=== PATIENT | male | born 1950 ===

== ENCOUNTER 2016-10-27 15:31 | Inpatient (IN) | payer OTHER, MEDICARE ==
--- NOTE | 2016-10-27 15:44 | EDM.PDOC ---
ED HPI GENERAL MEDICAL PROBLEM - General Chief Complaint: Gastrointestinal Problem Stated Complaint: BLOOD IN STOOL Time Seen by Provider: 10/27/16 15:42 Source of Information: Reports: Patient History Limitations: Reports: No Limitations - History of Present Illness INITIAL COMMENTS - FREE TEXT/NARRATIVE: 66-year-old male presents to the ED stating that since noon he's had 3 bowel movements containing all blood. This is bright red blood with some clotting. When he gets the urge to go he has to go immediately. He has vague abdominal discomfort at this time with no severe cramping. His appetite remains good. He is not prone to reflux disease. He takes a baby aspirin daily but has had not had any recent positive heartburn. Does not use any arthritis tablets uses Tylenol arthritis when necessary for right knee pain. Bowel movements are painless. Can't remember if he's had any bowel movement that contained stool today. No previous post with rectal bleeding. Last colonoscopy was greater than 10 years ago. Apparently a polyp or 2 was removed at that time. The colostomy was carried out here in [place] likely with Dr. Hartman. No family history of colon cancer. He has a bad type II diabetic that is not all that well controlled. On numerous medications to treat his diabetes. Known coronary disease with triple bypass carried out in December last year. Onset: Today Onset Date: 10/27/16 Onset Time: 12:00 Duration: Hour(s): Location: Reports: Other (Rectal bleeding) Quality: Reports: Other Severity: Moderate (Painless rectal bleeding 3 large) Improves with: Reports: None ( bowel movements which she feels was at least a handful of blood loss.) Worsens with: Reports: None Context: Denies: Activity, Exercise, Lifting, Sick Contact, Trauma, Other Associated Symptoms: Reports: No Other Symptoms, Other (Perhaps feels a little weak.) Treatments BOOK STORE ASSOCIATE: Reports: Acetaminophen, Other (see below) (None.) - Related Data Allergies Allergy/AdvReac Type Severity Reaction Status Date / Time celecoxib [From Celebrex] Allergy Indigestion Verified 10/27/16 15:39 Home Meds: Home Meds Dapagliflozin Propanediol [Farxiga] 5 mg PO DAILY 02/23/16 [History] Fish,Saf,Flx,Brg Oils/O3,6,9#2 [Hbdk-Wqrr-Dqrqef Oil Softgel] 1 each PO DAILY [History] Folic Acid 0.8 mg PO DAILY 02/23/16 [History] Gluc 2KCl/Chondr/Mandi Hy/Hy Ac [Glucosamine & Chondroitin Cap] 1 each PO DAILY 02/23/16 [History] Lisinopril 5 mg PO DAILY 02/23/16 [History] Metoprolol Succinate [Toprol XL 50mg] 50 mg PO DAILY 02/23/16 [History] Multivitamin [Multivitamins] 1 each PO DAILY 02/23/16 [History] atorvaSTATin [Lipitor] 80 mg PO BEDTIME 02/23/16 [History] metFORMIN HCl [Metformin HCl] 1,000 mg PO BID 02/23/16 [History] Aspirin [Halfprin] 81 mg PO DAILY 10/27/16 [History] Exenatide Microspheres [Bydureon] 2 mg SUBCUT ASDIRECTED 10/27/16 [History] Past Medical History Cardiovascular History: Reports: Bypass (Triple bypass carried out in December last year.), CAD, High Cholesterol, Hypertension, [place], SOB on Exertion Respiratory History: Reports: COPD (Currently on an inhaler which he does not feel is helping much.) Genitourinary History: Reports: BPH, Other (See Below) (Nocturia usually 3.) Musculoskeletal History: Reports: Back Pain, Chronic (Intermittent problems with low back pain. Some shoulder and neck discomfort at times.), Osteoarthritis (Especially problems with his right knee with [id number]. Is considering have total knee replacement by Dr. Meyers.) Endocrine/Metabolic History: Reports: Diabetes, Type II (By history poorly controlled. Is on multiple medications for diabetic management.) - Past Surgical History Cardiovascular Surgical History: Reports: Coronary Artery Bypass (Triple bypass carried out in December 2015) Musculoskeletal Surgical History: Reports: Arthroscopic Knee (Right knee with partial medial meniscectomy many years ago) Social & Family History - Tobacco Use Smoking Status *Q: Never Smoker Second Hand Smoke Exposure: No - Alcohol Use Days Per Week of Alcohol Use: 0 - Recreational Drug Use Recreational Drug Use: No - Living Situation & Occupation Living situation: Reports: Occupation: Employed ED ROS GENERAL - Review of Systems Review Of Systems: See Below Constitutional: Reports: Weakness. Denies: Fever, Chills, Malaise, Fatigue, Decreased Appetite, Weight Loss (Perhaps a little weak.) HEENT: Reports: Glasses, Hearing Loss Respiratory: Reports: Shortness of Breath (On minimal exertionwith COPD.), Cough (Nonproductive cough) Cardiovascular: Reports: Blood Pressure Problem, Dyspnea on Exertion ( Vocational fluid in his lower extremities), Edema. Denies: Chest Pain, Claudication, Lightheadedness, Orthopnea (Well-controlled on current medications ) Endocrine: Reports: Fatigue, High Glucose GI/Abdominal: Reports: Other (Bright red bleeding per rectum 3 today.) : Reports: Frequency, Other (Nocturia 3 or 4.) Musculoskeletal: Reports: Back Pain, Joint Pain (Right knee gives him a lot of pain.) Skin: Reports: No Symptoms Neurological: Reports: No Symptoms Psychiatric: Reports: No Symptoms Hematologic/Lymphatic: Reports: No Symptoms Immunologic: Reports: No Symptoms ED EXAM, GI/ABD - Physical Exam Exam: See Below Exam Limited By: Uncooperative General Appearance: Alert, WD/WN, No Apparent Distress, Other (Color is good.) Eyes: Bilateral: Normal Appearance Throat/Mouth: Normal Inspection, Normal Oropharynx Head: Atraumatic, Normocephalic Neck: Normal Inspection, Non-Tender, Limited Range of Motion. No: Full Range of Motion, Lymphadenopathy (L) (Has crepitus with lateral rotation.), Lymphadenopathy (R) Respiratory/Chest: Decreased Breath Sounds, Wheezing (Occasional expiratory wheeze), Other (Well-healed midline sternotomy incision) GI/Abdominal Exam: Normal Bowel Sounds, Soft, Non-Tender, No Organomegaly, Other (No hernias and no scars.) Back Exam: Normal Inspection, Decreased Range of Motion. No: CVA Tenderness (L) , CVA Tenderness (R) Extremities: Normal Inspection, Other (Swelling and pain right knee.) Neurological: Alert, Oriented, CN II-XII Intact, Normal Cognition. No: Normal Gait (Limping gait due to right knee pain) Psychiatric: Normal Affect, Normal Mood Skin Exam: Warm, Dry, Intact, Normal Color, No Rash ED ABDOMINAL/GI PROCEDURES - Additional/Other Procedure(s) Procedure(s) (Free Text): Rigid sigmoidoscopy carried out to only 12 cm before the scope filled completely with melena stool. Suction this out and it filled again rapidly with blood. Therefore there was no way to visualize any potential source of bleeding. The procedure that was therefore abandoned. Course - Vital Signs Last Recorded V/S: Last Vital Signs Temp 36.7 C 10/27/16 15:39 Pulse 90 10/27/16 15:39 Resp BP 133/80 10/27/16 15:39 Pulse Ox 95 10/27/16 15:39 Orthostatic Blood Pressure [ 133/83 Sitting] Orthostatic Blood Pressure [ 127/81 Supine] - Orders/Labs/Meds Orders: Active Orders 24 hr Category Date Time Status Orthostatic Vital Signs [RC] ASDIRECTED Care 10/27/16 15:43 Active Abdomen Pelvis w Cont [CT] Stat Exams 10/27/16 17:42 Taken Hemoccult [OCCULT BLOOD DIAGNOSTIC] [OP] Stat Lab 10/27/16 16:40 Ordered PACKED CELLS [RED BLOOD CELLS LP] [BBK] Stat Lab 10/27/16 16:04 Results PATIENT RETYPE [BBK] Stat Lab 10/27/16 16:04 Results TYPE AND SCREEN [BBK] Stat Lab 10/27/16 16:04 Results Sodium Chloride 0.9% [Normal Saline] 1,000 ml Med 10/27/16 15:45 Active IV ASDIRECTED Medication Orders Sodium Chloride (Normal Saline) 1,000 mls @ 250 mls/hr IV ASDIRECTED JERONIMO Last Admin: 10/27/16 15:57 Dose: 150 mls/hr Labs: Laboratory Tests 10/27/16 10/27/16 10/27/16 Range/Units 16:04 16:04 16:04 WBC 8.93 (4.23-9.07) K/mm3 RBC 5.17 (4.63-6.08) M/mm3 Hgb 13.9 (13.7-17.5) gm/L Hct 42.7 (40.1-51.0) % MCV 82.6 (79.0-92.2) fl MCH 26.9 (25.7-32.2) pg MCHC 32.6 (32.2-35.5) g/dl RDW Std Deviation 43.6 (35.1-43.9) fL Plt Count 224 (163-337) K/mm3 MPV 10.3 (9.4-12.3) fl Neutrophils % (Manual) 66 H (40-60) % Band Neutrophils % 0 (0-10) % Lymphocytes % (Manual) 22 (20-40) % Atypical Lymphs % 0 % Monocytes % (Manual) 11 H (2-10) % Eosinophils % (Manual) 1 (0.8-7.0) % Basophils % (Manual) 0 L (0.2-1.2) Platelet Estimate Adequate Plt Morphology Comment Normal Poikilocytosis 1+ slight Tear Drop Cells 1+ slight Ovalocytes 1+ slight RBC Morph Comment Normal PT 10.9 (8.0-13.0) SECONDS INR 1.00 APTT (22-36) SECONDS Sodium 141 (136-145) mEq/L Potassium 4.0 (3.5-5.1) mEq/L Chloride 106 (98-107) mEq/L Carbon Dioxide 25 (21-32) mEq/L Anion Gap 14.0 (5-15) BUN 12 (7-18) mg/dL Creatinine 1.1 (0.7-1.3) mg/dL Est Cr Clr Drug Dosing 63.91 mL/min Estimated GFR (MDRD) > 60 (>60) mL/min BUN/Creatinine Ratio 10.9 L (14-18) Glucose 160 H (80-115) mg/dL Hemoglobin A1c (4.50-6.20) % Calcium 9.5 (8.5-10.1) mg/dL Total Bilirubin 0.4 (0.2-1.0) mg/dL AST 23 (15-37) U/L ALT 39 (16-63) U/L Alkaline Phosphatase 69 (46-116) U/L Total Protein 7.1 (6.4-8.2) g/dl Albumin 3.4 (3.4-5.0) g/dl Globulin 3.7 gm/dL Albumin/Globulin Ratio 0.9 L (1-2) Blood Type Gel Antibody Screen Crossmatch 10/27/16 10/27/16 10/27/16 Range/Units 16:04 16:04 16:04 WBC (4.23-9.07) K/mm3 RBC (4.63-6.08) M/mm3 Hgb (13.7-17.5) gm/L Hct (40.1-51.0) % MCV (79.0-92.2) fl MCH (25.7-32.2) pg MCHC (32.2-35.5) g/dl RDW Std Deviation (35.1-43.9) fL Plt Count (163-337) K/mm3 MPV (9.4-12.3) fl Neutrophils % (Manual) (40-60) % Band Neutrophils % (0-10) % Lymphocytes % (Manual) (20-40) % Atypical Lymphs % % Monocytes % (Manual) (2-10) % Eosinophils % (Manual) (0.8-7.0) % Basophils % (Manual) (0.2-1.2) Platelet Estimate Plt Morphology Comment Poikilocytosis Tear Drop Cells Ovalocytes RBC Morph Comment PT (8.0-13.0) SECONDS INR APTT 25 (22-36) SECONDS Sodium (136-145) mEq/L Potassium (3.5-5.1) mEq/L Chloride (98-107) mEq/L Carbon Dioxide (21-32) mEq/L Anion Gap (5-15) BUN (7-18) mg/dL Creatinine (0.7-1.3) mg/dL Est Cr Clr Drug Dosing mL/min Estimated GFR (MDRD) (>60) mL/min BUN/Creatinine Ratio (14-18) Glucose (80-115) mg/dL Hemoglobin A1c 7.10 H (4.50-6.20) % Calcium (8.5-10.1) mg/dL Total Bilirubin (0.2-1.0) mg/dL AST (15-37) U/L ALT (16-63) U/L Alkaline Phosphatase (46-116) U/L Total Protein (6.4-8.2) g/dl Albumin (3.4-5.0) g/dl Globulin gm/dL Albumin/Globulin Ratio (1-2) Blood Type A POSITIVE Gel Antibody Screen Negative Crossmatch See Detail Meds: Medications Generic Name Dose Route Start Last Admin Trade Name Freq PRN Reason Stop Dose Admin Sodium Chloride 1,000 mls @ 250 mls/hr 10/27/16 15:45 10/27/16 15:57 Normal Saline IV 150 mls/hr ASDIRECTED JERONIMO Administration Discontinued Medications Generic Name Dose Route Start Last Admin Trade Name Freq PRN Reason Stop Dose Admin Diatrizoate Meglum/Diatrizoate Sod 90 ml 10/27/16 18:50 Gastrografin 37% PO 10/27/16 18:51 ONETIME ONE Iopamidol 125 ml 10/27/16 18:50 Isovue-300 (61%) IVPUSH 10/27/16 18:51 ONETIME ONE Lidocaine HCl 10 ml 10/27/16 16:12 10/27/16 16:26 Xylocaine 2% Jelly MUCMEM 10/27/16 16:13 10 ml ONETIME ONE Administration - Radiology Interpretation Free Text/Narrative:: 66-year-old male presents to the ED stating that he's had 3 bloody stools per rectum since noon today. He believes he passed a paramount per rectum each time like a handful. Blood was all bright red with no maroon color to it. Believes it was a few clots. All bowel movements are painless. Last colonoscopy was brought 10 years ago. Usually bowel movements are nice and normal without problems with diarrhea or constipation. Color at this time is good. Orthostatic BPs to be done. Will start IV normal saline at 150 mils per hour. He is on aspirin 81 mg daily. Doesn't seem to have any upper GI symptoms. Type and screen will be done at this time. Consent will be obtained for rigid sigmoidoscopy. - Re-Assessments/Exams Free Text/Narrative Re-Assessment/Exam: 10/27/16 16:13 orthostatic BPs are within normal limits. Consent signed for rigid sigmoidoscopy and potential blood transfusion. 10/27/16 16:41 patient had another large melena stool prior to the rigid sigmoidoscopy. Rigid sigmoidoscopy proved to be fullness in terms that the entire colon is coated with dark colored blood and blood filled up the scope almost immediately. For no way of identifying source of bleeding but it appears to be higher up in the colon. He will require admission to the hospital as I fear that he is bleeding rather aggressively. I will crossmatch her for 2 units of packed cells to have on hand. Hemoglobin is 13.9 at this time. 10/27/16 17:44 remainder of his labs are now back. Differential is 66% neutrophils on his Hemovac white cell count. Hemoglobin A1c was 7.10 coags are normal. Sodium 141 potassium 4.1. Chloride 106 bicarbonate 25. Anion gap is 14.0 creatinine is 1.1 he went is only 12 which is against any upper GI bleed source. Glucose is 160. I did speak with Dr. Bowman hospitalist construction foreman and she recommends CT of the abdomen and pelvis with oral and IV contrast to see if we can identify a lesion within the colon. Will therefore go ahead with this test. 10/27/16 19:25 CT of the abdomen and pelvis has been completed. Contrast traveled throughout the small bowel and stomach but it did not enter the large colon which was the place of interest. There is a small hiatal hernia with evidence of some reflux as the stomach is filled with contrast. There are multiple gallstones in the gallbladder .The liver appears to be slightly Fatty infiltrated. Pancreas appears normal. There are multiple diverticula throughout the left descending colon and sigmoid colon area without any active diverticulitis evident. There is plenty of stool it appears within the right hemicolon and transverse colon. Not able to visualize any definitive apple core lesion or mass. Patient will be admitted to the intensive care unit for monitoring purposes due to significant blood loss per rectum this afternoon. Departure - Departure Time of Disposition: 19:00 Disposition: Admitted As Inpatient 66 Condition: Serious Clinical Impression: Lower gastrointestinal hemorrhage Type 2 diabetes mellitus Qualifiers: Diabetes mellitus complication status: with circulatory complication - Discharge Information - My Orders Last 24 Hours: My Active Orders 10/27/16 15:43 Orthostatic Vital Signs [RC] ASDIRECTED 10/27/16 15:45 Sodium Chloride 0.9% [Normal Saline] 1,000 ml IV ASDIRECTED 10/27/16 16:04 PACKED CELLS [RED BLOOD CELLS LP] [BBK] Stat PATIENT RETYPE [BBK] Stat TYPE AND SCREEN [BBK] Stat 10/27/16 16:40 Hemoccult [OCCULT BLOOD DIAGNOSTIC] [OP] Stat 10/27/16 17:42 Abdomen Pelvis w Cont [CT] Stat - Assessment/Plan Last 24 Hours: My Active Orders 10/27/16 15:43 Orthostatic Vital Signs [RC] ASDIRECTED 10/27/16 15:45 Sodium Chloride 0.9% [Normal Saline] 1,000 ml IV ASDIRECTED 10/27/16 16:04 PACKED CELLS [RED BLOOD CELLS LP] [BBK] Stat PATIENT RETYPE [BBK] Stat TYPE AND SCREEN [BBK] Stat 10/27/16 16:40 Hemoccult [OCCULT BLOOD DIAGNOSTIC] [OP] Stat 10/27/16 17:42 Abdomen Pelvis w Cont [CT] Stat
[2016-10-27] MEDS: Sodium Chloride 0.9% 1,000 ML IV SCH ×2 (15:57→21:59)
[2016-10-27] MEDS ORDERED: Lidocaine 2% Jelly 10 ML Urojet MUCMEM ONE (16:12)
[2016-10-27] MEDS ORDERED: Iopamidol 612 MG/ML 150 ML Bottle IVPUSH ONE (18:50)
[2016-10-27] MEDS ORDERED: Diatrizoate Meglumine/Diatrizoate Sodium 37% 120 ML Bottle PO ONE (18:50)
[2016-10-27] MEDS ORDERED: 50% Dextrose in Water 50 ML Syringe IVPUSH PRN (20:11)
--- NOTE | 2016-10-27 20:33 | PCM.HP ---
H&P History of Present Illness - General Date of Service: 10/27/16 Admit Problem/Dx: Admission Diagnosis/Problem Admission Diagnosis/Problem Acute lower gastrointestinal hemorrhage Source of Information: Patient, Provider History Limitations: Reports: No Limitations - History of Present Illness Initial Comments - Free Text/Narative: 66 year old male remote history of colon polyps presents with 3 bloody bowel movements. Currently is hemodynamically stable. He had an additional episode of a bloody bowel movement after CT of abdomen and pelvis with contrast. He denies dizziness or lightheadedness. No chest pain or shortness of breath is described. He will be admitted to the ICU for close monitoring following the frequency and size of the bloody bowel movements. Symptom Onset Date: 10/27/16 Duration of Symptoms: Reports: Hour(s):, Getting Worse Location: Reports: Abdomen Severity: Moderate Improves with: Reports: None Worsens with: Reports: None Associated Symptoms: Reports: Weakness - Related Data Allergies/Adverse Reactions: Allergies Allergy/AdvReac Type Severity Reaction Status Date / Time celecoxib [From Celebrex] Allergy Indigestion Verified 10/27/16 15:39 Home Medications: Home Meds Dapagliflozin Propanediol [Farxiga] 5 mg PO DAILY 02/23/16 [History] Fish,Saf,Flx,Brg Oils/O3,6,9#2 [Nqsw-Pbjx-Qsxojn Oil Softgel] 1 each PO DAILY [History] Folic Acid 0.8 mg PO DAILY 02/23/16 [History] Gluc 2KCl/Chondr/Mandi Hy/Hy Ac [Glucosamine & Chondroitin Cap] 1 each PO DAILY 02/23/16 [History] Lisinopril 5 mg PO DAILY 02/23/16 [History] Metoprolol Succinate [Toprol XL 50mg] 50 mg PO DAILY 02/23/16 [History] Multivitamin [Multivitamins] 1 each PO DAILY 02/23/16 [History] atorvaSTATin [Lipitor] 80 mg PO BEDTIME 02/23/16 [History] metFORMIN HCl [Metformin HCl] 1,000 mg PO BID 02/23/16 [History] Aspirin [Halfprin] 81 mg PO DAILY 10/27/16 [History] Exenatide Microspheres [Bydureon] 2 mg SUBCUT ASDIRECTED 10/27/16 [History] Past Medical History Cardiovascular History: Reports: Bypass (Triple bypass carried out in December last year.), CAD, High Cholesterol, Hypertension, [place], SOB on Exertion Respiratory History: Reports: COPD (Currently on an inhaler which he does not feel is helping much.) Genitourinary History: Reports: BPH, Other (See Below) (Nocturia usually 3.) Musculoskeletal History: Reports: Back Pain, Chronic (Intermittent problems with low back pain. Some shoulder and neck discomfort at times.), Osteoarthritis (Especially problems with his right knee with [id number]. Is considering have total knee replacement by Dr. Meyers.) Endocrine/Metabolic History: Reports: Diabetes, Type II (By history poorly controlled. Is on multiple medications for diabetic management.) - Past Surgical History Cardiovascular Surgical History: Reports: Coronary Artery Bypass (Triple bypass carried out in December 2015) Musculoskeletal Surgical History: Reports: Arthroscopic Knee (Right knee with partial medial meniscectomy many years ago) Social & Family History - Tobacco Use Smoking Status *Q: Never Smoker Second Hand Smoke Exposure: No - Alcohol Use Days Per Week of Alcohol Use: 0 - Recreational Drug Use Recreational Drug Use: No - Living Situation & Occupation Living situation: Reports: Occupation: Employed H&P Review of Systems - Review of Systems: Review Of Systems: See Below General: Reports: Weakness HEENT: Reports: No Symptoms Pulmonary: Reports: No Symptoms Cardiovascular: Reports: No Symptoms Gastrointestinal: Reports: Bloody Stool, Melena Genitourinary: Reports: No Symptoms Musculoskeletal: Reports: No Symptoms Skin: Reports: No Symptoms Psychiatric: Reports: No Symptoms Neurological: Reports: No Symptoms Hematologic/Lymphatic: Reports: No Symptoms Immunologic: Reports: No Symptoms Exam - Exam Exam: See Below - Vital Signs Vital Signs: Last Vital Signs Temp 36.7 C 10/27/16 15:39 Pulse 90 10/27/16 15:39 Resp BP 133/80 10/27/16 15:39 Pulse Ox 95 10/27/16 15:39 Weight: 106.594 kg - Exam Quality Assessment: DVT Prophylaxis General: Alert, Oriented, Cooperative HEENT: Conjunctiva Clear, EOMI, Nares Patent, Pupils Equal, Pupils Reactive Neck: Supple, Trachea Midline Lungs: Normal Respiratory Effort Cardiovascular: Regular Rate, Regular Rhythm GI/Abdominal Exam: Normal Bowel Sounds, Soft, Non-Tender, No Distention (Male) Exam: Deferred Rectal (Males) Exam: Bloody Stool Back Exam: Normal Inspection Extremities: Normal Inspection, No Pedal Edema Skin: Warm Neurological: Cranial Nerves Intact Neuro Extensive - Mental Status: Alert, Oriented x3, Normal Mood/Affect, Normal Cognition, Memory Intact Neuro Extensive - Motor, Sensory, Reflexes: CN II-XII Intact Psychiatric: Alert, Normal Affect, Normal Mood - Patient Data Result Diagrams: 10/27/16 16:04 10/27/16 16:04 *Q Meaningful Use (ADM) - VTE *Q VTE Criteria *Q: - Stroke *Q Stroke Criteria *Q: - AMI *Q AMI Criteria *Q: - Problem List (1) CAD (coronary artery disease) of artery bypass graft SNOMED Code(s): 543622225, 30663279, 705896015, 924224312, 010767602 ICD Code: I25.810 - ATHEROSCLEROSIS OF CABG W/O ANGINA PECTORIS Status: Acute Current Visit: Yes (2) Hypertension SNOMED Code(s): 15417360 ICD Code: I10 - ESSENTIAL (PRIMARY) HYPERTENSION Status: Acute Current Visit: Yes (3) COPD (chronic obstructive pulmonary disease) SNOMED Code(s): 85122204 ICD Code: J44.9 - CHRONIC OBSTRUCTIVE PULMONARY DISEASE, UNSPECIFIED Status : Acute Current Visit: Yes (4) Lower gastrointestinal hemorrhage SNOMED Code(s): 88345659 ICD Code: K92.2 - GASTROINTESTINAL HEMORRHAGE, UNSPECIFIED Status: Acute Current Visit: Yes (5) Type 2 diabetes mellitus SNOMED Code(s): 71956430 ICD Code: E11.9 - TYPE 2 DIABETES MELLITUS WITHOUT COMPLICATIONS Status: Acute Current Visit: Yes Qualifiers: Diabetes mellitus complication status: with circulatory complication Problem List Initiated/Reviewed/Updated: Yes Orders Last 24hrs: Active Orders 24 hr Category Date Time Status Accu Check [Blood Glucose Check, Bedside] [RC] Care 10/27/16 20:10 Ordered QIDACANDBED Activity as Tolerated [RC] .Routine Care 10/27/16 20:05 Ordered Antiembolic Devices [RC] PER UNIT ROUTINE Care 10/27/16 20:19 Ordered Notify Provider Consults [RC] ASDIRECTED Care 10/27/16 20:10 Ordered Vital Signs [RC] PER UNIT ROUTINE Care 10/27/16 20:05 Ordered Consult to Case Management [CONS] Routine Cons 10/27/16 20:13 Ordered Consult to Occupational Therapy [OT Evaluation and Cons 10/28/16 09:00 Ordered Treatment] [CONS] Routine Consult to Physical Therapy [PT Evaluation and Cons 10/28/16 09:00 Ordered Treatment] [CONS] Routine Consult to Physician [CONS] Routine Cons 10/28/16 07:00 Ordered Clear Liquid Diet [DIET] Diet 10/27/16 Dinner Ordered BMP [BASIC METABOLIC PANEL,BMP] [CHEM] DAILY Lab 10/28/16 05:00 Ordered BMP [BASIC METABOLIC PANEL,BMP] [CHEM] DAILY Lab 10/29/16 05:00 Ordered BMP [BASIC METABOLIC PANEL,BMP] [CHEM] DAILY Lab 10/30/16 05:00 Ordered BMP [BASIC METABOLIC PANEL,BMP] [CHEM] DAILY Lab 10/31/16 05:00 Ordered CA 125 [REF] Routine Lab 10/28/16 05:00 Ordered CBC WITH AUTO DIFF [HEME] DAILY Lab 10/28/16 05:00 Ordered CBC WITH AUTO DIFF [HEME] DAILY Lab 10/29/16 05:00 Ordered CBC WITH AUTO DIFF [HEME] DAILY Lab 10/30/16 05:00 Ordered CBC WITH AUTO DIFF [HEME] DAILY Lab 10/31/16 05:00 Ordered CEA [REF] Routine Lab 10/28/16 05:00 Ordered LIPID PANEL [CHEM] Routine Lab 10/28/16 05:00 Ordered MG [MAGNESIUM] [CHEM] DAILY Lab 10/28/16 05:00 Ordered MG [MAGNESIUM] [CHEM] DAILY Lab 10/29/16 05:00 Ordered MG [MAGNESIUM] [CHEM] DAILY Lab 10/30/16 05:00 Ordered MG [MAGNESIUM] [CHEM] DAILY Lab 10/31/16 05:00 Ordered TROPONIN I [CHEM] Routine Lab 10/28/16 05:00 Ordered Dextrose 50% in Water Med 10/27/16 20:11 Ordered 50 ml IVPUSH ASDIRECTED PRN Insulin Aspart [NovoLOG] Med 10/27/16 20:15 Ordered See Protocol SUBCUT QIDACANDBED Metoprolol Succinate [Toprol XL] Med 10/28/16 09:00 Ordered 25 mg PO DAILY atorvaSTATin Med 10/27/16 21:00 Ordered 80 mg PO BEDTIME JUAN ANTONIO Hose [Antiembolic Hose] [OM.PC] Routine Oth 10/27/16 20:19 Ordered Medication Orders Dextrose/Water (Dextrose 50% In Water) 50 ml IVPUSH ASDIRECTED PRN PRN Reason: Hypoglycemia Sodium Chloride (Normal Saline) 1,000 mls @ 250 mls/hr IV ASDIRECTED JERONIMO Last Admin: 10/27/16 15:57 Dose: 150 mls/hr Insulin Aspart (Novolog) 0 unit SUBCUT QIDACANDBED JERONIMO PRN Reason: Protocol Metoprolol Succinate (Toprol Xl) 25 mg PO DAILY JERONIMO Rosuvastatin Calcium (Crestor) 20 mg PO BEDTIME [facility] Assessment/Plan Comment:: Impression: LGIB Previously had polyps removed, remote`10 years ago HTN CAD S/P CABG 10 months ago Diabetes mellitus COPD Plan: IVF Monitor H/H, type and cross, hold 2 units Home meds Daily Labs Clear liquid diet Gen surg consult DVT/GI prophylaxis CM/PT/OT
[2016-10-27] MEDS: Pantoprazole 40 MG Vial IVPUSH SCH (20:56)
[2016-10-27] MEDS: Insulin Aspart 100 Units/ML 3 ML Pen SUBCUT SCH ×2 (21:03→22:14)
[2016-10-27] MEDS: Rosuvastatin 10 MG Tab PO SCH (22:16)
[2016-10-28] MEDS: Sodium Chloride 0.9% 1,000 ML IV SCH ×5 (02:04→18:38)
[2016-10-28] MEDS: Insulin Aspart 100 Units/ML 3 ML Pen SUBCUT SCH ×4 (06:41→21:17)
--- NOTE | 2016-10-28 07:53 | PCM.CONS ---
H&P History of Present Illness - General Date of Service: 10/28/16 Admit Problem/Dx: Admission Diagnosis/Problem Admission Diagnosis/Problem Acute lower gastrointestinal hemorrhage Source of Information: Patient, Family History Limitations: Reports: No Limitations - History of Present Illness Initial Comments - Free Text/Narative: 66-year-old male was in his usual state of health when after eating a sandwich around noon yesterday he felt crampy abdominal pain followed by the passage of melenic stools. This was the first time he had ever experienced such an event. He denied a significant history of GERD symptoms or dyspepsia. He has never taken a PPI on a daily basis. There is no past medical history of peptic ulcer disease. He's never had gastric surgery. He takes a baby aspirin a day. He will take an occasional ibuprofen for his chronic knee pain. He denied alcohol ingestion. Over the past year he has not had significant weight loss. To the best of his recollection his family history is negative for esophageal cancer, gastric cancer, as well as colon cancer and polyps. His last colonoscopy was about 10 years ago and he had a couple polyps that were benign at that time. He' s never had an upper endoscopy. Since admission the nurses have recorded about 8 additional small melenic stools. He has been hemodynamically stable on the hospitalist service. His hemoglobin has dropped from 13 to10. - Related Data Allergies/Adverse Reactions: Allergies Allergy/AdvReac Type Severity Reaction Status Date / Time celecoxib [From Celebrex] Allergy Indigestion Verified 10/28/16 00:22 Home Medications: Home Meds Dapagliflozin Propanediol [Farxiga] 5 mg PO DAILY 02/23/16 [History] Fish,Saf,Flx,Brg Oils/O3,6,9#2 [Nrkp-Rpso-Ezzqyy Oil Softgel] 1 each PO DAILY [History] Folic Acid 0.8 mg PO DAILY 02/23/16 [History] Gluc 2KCl/Chondr/Mandi Hy/Hy Ac [Glucosamine & Chondroitin Cap] 1 each PO DAILY 02/23/16 [History] Lisinopril 5 mg PO DAILY 02/23/16 [History] Metoprolol Succinate [Toprol XL 50mg] 50 mg PO DAILY 02/23/16 [History] Multivitamin [Multivitamins] 1 each PO DAILY 02/23/16 [History] atorvaSTATin [Lipitor] 80 mg PO BEDTIME 02/23/16 [History] metFORMIN HCl [Metformin HCl] 1,000 mg PO BID 02/23/16 [History] Aspirin [Halfprin] 81 mg PO DAILY 10/27/16 [History] Exenatide Microspheres [Bydureon] 2 mg SUBCUT ASDIRECTED 10/27/16 [History] glipiZIDE [Glipizide ER] 2.5 mg PO DAILY 10/28/16 [History] Past Medical History HEENT History: Reports: Other (See Below) Other HEENT History: WEARS GLASSES Cardiovascular History: Reports: Bypass, CAD, High Cholesterol, Hypertension, [place] , SOB on Exertion Respiratory History: Reports: COPD, Other (See Below) Other Respiratory History: USES CPAP AT NIGHT Genitourinary History: Reports: BPH Musculoskeletal History: Reports: Back Pain, Chronic, Osteoarthritis Endocrine/Metabolic History: Reports: Diabetes, Type II - Past Surgical History Cardiovascular Surgical History: Reports: Coronary Artery Bypass Musculoskeletal Surgical History: Reports: Arthroscopic Knee Social & Family History - Tobacco Use Smoking Status *Q: Former Smoker Years of Tobacco use: 1 Used Tobacco, but Quit: Yes Month Tobacco Last Used: QUIT SMOKING 40 YRS AGO Second Hand Smoke Exposure: No - Caffeine Use Caffeine Use: Reports: None - Alcohol Use Days Per Week of Alcohol Use: 0 - Recreational Drug Use Recreational Drug Use: No - Living Situation & Occupation Living situation: Reports: Occupation: Employed H&P Review of Systems - Review of Systems: Review Of Systems: ROS reveals no pertinent complaints other than HPI. Exam - Exam Exam: See Below - Vital Signs Vital Signs: Last Vital Signs Temp 36.4 C 10/28/16 04:00 Pulse 90 10/27/16 15:39 Resp 18 10/28/16 04:00 BP 113/68 10/28/16 04:00 Pulse Ox 95 10/28/16 04:00 Weight: 109.679 kg - Exam Quality Assessment: Supplemental Oxygen, Other (CPAP) General: Alert, Oriented, Cooperative HEENT: EOMI, Hearing Intact Neck: Supple Lungs: Clear to Auscultation, Normal Respiratory Effort Cardiovascular: Regular Rate, Regular Rhythm, Normal S1, Normal S2, Irregular Rhythm GI/Abdominal Exam: Normal Bowel Sounds, Soft, Non-Tender, Other (Obese) (Male) Exam: Deferred Rectal (Males) Exam: Deferred Skin: Warm, Dry, Intact Neuro Extensive - Mental Status: Alert, Oriented x3, Normal Mood/Affect, Normal Cognition, Memory Intact Psychiatric: Alert, Normal Affect - Patient Data Lab Results Last 24 hrs: Laboratory Results - last 24 hr 10/27/16 10/27/16 10/28/16 Range/Units 20:05 21:02 06:40 WBC 10.03 H (4.23-9.07) K/mm3 RBC 4.94 (4.63-6.08) M/mm3 Hgb 13.2 L (13.7-17.5) gm/L Hct 41.2 (40.1-51.0) % MCV 83.4 (79.0-92.2) fl MCH 26.7 (25.7-32.2) pg MCHC 32.0 L (32.2-35.5) g/dl RDW Std Deviation 44.4 H (35.1-43.9) fL Plt Count 218 (163-337) K/mm3 MPV 10.1 (9.4-12.3) fl Neut % (Auto) 66.6 (34.0-67.9) % Lymph % (Auto) 19.8 L (21.8-53.1) % Johnson % (Auto) 10.7 (5.3-12.2) % Eos % (Auto) 2.2 (0.8-7.0) Baso % (Auto) 0.2 (0.1-1.2) % Neut # (Auto) 6.68 H (1.78-5.38) K/mm3 Lymph # (Auto) 1.99 (1.32-3.57) K/mm3 Johnson # (Auto) 1.07 H (0.30-0.82) K/mm3 Eos # (Auto) 0.22 (0.04-0.54) K/mm3 Baso # (Auto) 0.02 (0.01-0.08) K/mm3 POC Glucose 106 149 H (80-115) mg/dL 10/28/16 Range/Units 06:45 WBC 8.02 (4.23-9.07) K/mm3 RBC 3.89 L (4.63-6.08) M/mm3 Hgb 10.6 L (13.7-17.5) gm/L Hct 32.8 L (40.1-51.0) % MCV 84.3 (79.0-92.2) fl MCH 27.2 (25.7-32.2) pg MCHC 32.3 (32.2-35.5) g/dl RDW Std Deviation 44.0 H (35.1-43.9) fL Plt Count 194 (163-337) K/mm3 MPV 10.5 (9.4-12.3) fl Neut % (Auto) 70.0 H (34.0-67.9) % Lymph % (Auto) 18.6 L (21.8-53.1) % Johnson % (Auto) 8.7 (5.3-12.2) % Eos % (Auto) 1.9 (0.8-7.0) Baso % (Auto) 0.2 (0.1-1.2) % Neut # (Auto) 5.61 H (1.78-5.38) K/mm3 Lymph # (Auto) 1.49 (1.32-3.57) K/mm3 Johnson # (Auto) 0.70 (0.30-0.82) K/mm3 Eos # (Auto) 0.15 (0.04-0.54) K/mm3 Baso # (Auto) 0.02 (0.01-0.08) K/mm3 POC Glucose (80-115) mg/dL Result Diagrams: 10/28/16 06:45 10/27/16 16:04 Consult PN Assessment/Plan Procedures: Procedures ANTINUCLEAR ANTIBODIES (07/08/14) ASSAY IGA/IGD/IGG/IGM EACH (07/08/14) ASSAY OF BLOOD LIPOPROTEIN (12/12/14) ASSAY OF CERULOPLASMIN (05/15/14) ASSAY OF FERRITIN (05/15/14) ASSAY OF IRON (05/15/14) ASSAY OF TRANSFERRIN (05/15/14) C-REACTIVE PROTEIN (05/05/14) CARDIAC REHAB/MONITOR (03/01/16) CHEST X-RAY 2VW FRONTAL&LATL (05/05/14) COMPLETE CBC AUTOMATED (05/07/16) COMPLETE CBC W/AUTO DIFF WBC (05/05/14) COMPREHEN METABOLIC PANEL (05/07/16) EMERGENCY DEPT VISIT (05/05/14) GLYCOSYLATED HEMOGLOBIN TEST (05/07/16) HEP B SURFACE ANTIBODY (05/15/14) HEPATIC FUNCTION PANEL (05/15/14) HEPATITIS B SURFACE AG IA (05/15/14) HEPATITIS C AB TEST (05/15/14) IMMUNOASSAY NONANTIBODY (05/15/14) INFLUENZA ASSAY W/OPTIC (05/05/14) MICROALBUMIN QUANTITATIVE (05/07/16) ROUTINE VENIPUNCTURE (05/07/16) (1) Gastrointestinal bleeding SNOMED Code(s): 33376218 Code(s): K92.2 - GASTROINTESTINAL HEMORRHAGE, UNSPECIFIED Priority: High Current Visit: Yes Qualifiers: GI bleed type/associated pathology: melena Qualified Code(s): K92.1 - Melena Problem List Initiated/Reviewed/Updated: Yes My Orders Last 24 Hours: imp: Acute GI bleed with etiology unknown. The melenic stool suggest an upper GI source because of the acid hematin interaction. A lower GI source is also possible as well. Diagnostic possible therapeutic panendoscopy is indicated. plan: Diagnostic EGD and diagnostic colonoscopy. Stable enough for bowel preparation to begin today. I will place him on the schedule first thing in the morning. The benefits and risks as well as the alternatives were explained to the patient and his . They both were familiar with the colonoscopy and the bowel preparation and agreed to have me proceed.
[2016-10-28] MEDS ORDERED: Polyethylene Glycol/Electrolytes 4,000 ML Bottle PO ONE (07:58)
--- NOTE | 2016-10-28 08:25 | CT ---
CT abdomen and pelvis Technique: Multiple axial sections were obtained from above the dome of the diaphragm inferiorly to the pubic symphysis. Intravenous and oral contrast was utilized. Delayed images were obtained through the bladder. Comparison: No prior CT abdomen or pelvis exam. Findings: Minimal left-sided pleural effusion which is likely residual from prior sternotomy. Small hiatal hernia is seen. Liver shows no focal parenchymal abnormality. Spleen appears within normal limits. Calcified gallstones seen within the gallbladder. Adrenal glands show no nodule. Pancreas is within normal limits. Kidneys show symmetric contrast enhancement without hydronephrosis or mass. Aorta shows atherosclerotic change without aneurysmal dilatation. Appendix is seen which appears normal. Diverticuli are seen throughout the sigmoid colon and descending colon. Diffuse increased stool is noted throughout the colon. No free fluid or inflammatory change is seen. Delayed images show contrast within distal ureters and within the bladder. Bone window settings were reviewed which show scattered degenerative change throughout the spine. Mild scoliosis is also noted. Impression: 1. Diffuse diverticulosis mostly within the sigmoid and descending colon. 2. Diffuse increased stool throughout the colon. 3. Calcified gallstones and other incidental findings. Diagnostic code #2 I agree with preliminary report issued by [facility] ([facility] preliminary report dictated on 10/27/16, 8:30 PM Central Time)
[2016-10-28] MEDS: Metoprolol Succinate 50 MG Tab.ER PO SCH (09:11)
[2016-10-28] MEDS: Pantoprazole 40 MG Vial IVPUSH SCH (09:13)
[2016-10-28] MEDS: Pantoprazole 80 MG in Sodium Chloride 0.9% 100 ML IV SCH ×2 (11:29→20:42)
--- NOTE | 2016-10-28 12:17 | PCM.PREANE ---
Preanesthetic Assessment - Anesthesia/Transfusion/Family Hx Anesthesia History: Prior Anesthesia Without Reaction Family History of Anesthesia Reaction: No Transfusion History: No Prior Transfusion(s) - Review of Systems General: No Symptoms Pulmonary: No Symptoms Cardiovascular: No Symptoms Gastrointestinal: No Symptoms Neurological: No Symptoms Other: Reports: Diabetes - Physical Assessment NPO Status Date: 10/28/16 Pulse: 75 O2 Sat by Pulse Oximetry: 93 Respiratory Rate: 18 Blood Pressure: 130/77 Vital Signs: Last Vital Signs Temp 97.7 F 10/28/16 08:00 Pulse 75 10/28/16 09:11 Resp 18 10/28/16 08:00 BP 130/77 10/28/16 09:11 Pulse Ox 93 L 10/28/16 08:00 Height: 5 ft 8 in Weight: 109.679 kg ASA Class: 3 Mental Status: Alert & Oriented x3 Airway Class: Mallampati = 2 Dentition: Reports: Normal Dentition Thyro-Mental Finger Breadths: 2 Mouth Opening Finger Breadths: 3 ROM/Head Extension: Full Lungs: Clear to Auscultation, Normal Respiratory Effort Cardiovascular: Regular Rate, Regular Rhythm - Lab Values: Laboratory Last Values WBC 8.02 K/mm3 (4.23-9.07) 10/28/16 06:45 RBC 3.89 M/mm3 (4.63-6.08) L 10/28/16 06:45 Hgb 10.6 gm/L (13.7-17.5) L 10/28/16 06:45 Hct 32.8 % (40.1-51.0) L 10/28/16 06:45 MCV 84.3 fl (79.0-92.2) 10/28/16 06:45 MCH 27.2 pg (25.7-32.2) 10/28/16 06:45 MCHC 32.3 g/dl (32.2-35.5) 10/28/16 06:45 RDW Std Deviation 44.0 fL (35.1-43.9) H 10/28/16 06:45 Plt Count 194 K/mm3 (163-337) 10/28/16 06:45 MPV 10.5 fl (9.4-12.3) 10/28/16 06:45 Neut % (Auto) 70.0 % (34.0-67.9) H 10/28/16 06:45 Lymph % (Auto) 18.6 % (21.8-53.1) L 10/28/16 06:45 [place] % (Auto) 8.7 % (5.3-12.2) 10/28/16 06:45 Eos % (Auto) 1.9 (0.8-7.0) 10/28/16 06:45 Baso % (Auto) 0.2 % (0.1-1.2) 10/28/16 06:45 Neut # (Auto) 5.61 K/mm3 (1.78-5.38) H 10/28/16 06:45 Lymph # (Auto) 1.49 K/mm3 (1.32-3.57) 10/28/16 06:45 [place] # (Auto) 0.70 K/mm3 (0.30-0.82) 10/28/16 06:45 Eos # (Auto) 0.15 K/mm3 (0.04-0.54) 10/28/16 06:45 Baso # (Auto) 0.02 K/mm3 (0.01-0.08) 10/28/16 06:45 Neutrophils % (Manual) 66 % (40-60) H 10/27/16 16:04 Band Neutrophils % 0 % (0-10) 10/27/16 16:04 Lymphocytes % (Manual) 22 % (20-40) 10/27/16 16:04 Atypical Lymphs % 0 % 10/27/16 16:04 Monocytes % (Manual) 11 % (2-10) H 10/27/16 16:04 Eosinophils % (Manual) 1 % (0.8-7.0) 10/27/16 16:04 Basophils % (Manual) 0 (0.2-1.2) L 10/27/16 16:04 Platelet Estimate Adequate 10/27/16 16:04 Plt Morphology Comment Normal 10/27/16 16:04 Poikilocytosis 1+ slight 10/27/16 16:04 Tear Drop Cells 1+ slight 10/27/16 16:04 Ovalocytes 1+ slight 10/27/16 16:04 RBC Morph Comment Normal 10/27/16 16:04 PT 10.9 SECONDS (8.0-13.0) 10/27/16 16:04 INR 1.00 10/27/16 16:04 APTT 25 SECONDS (22-36) 10/27/16 16:04 Sodium 139 mEq/L (136-145) 10/28/16 06:45 Potassium 4.0 mEq/L (3.5-5.1) 10/28/16 06:45 Chloride 107 mEq/L (98-107) 10/28/16 06:45 Carbon Dioxide 21 mEq/L (21-32) 10/28/16 06:45 Anion Gap 15.0 (5-15) 10/28/16 06:45 BUN 10 mg/dL (7-18) 10/28/16 06:45 Creatinine 0.8 mg/dL (0.7-1.3) 10/28/16 06:45 Est Cr Clr Drug Dosing 87.88 mL/min 10/28/16 06:45 Estimated GFR (MDRD) > 60 mL/min (>60) 10/28/16 06:45 BUN/Creatinine Ratio 12.5 (14-18) L 10/28/16 06:45 Glucose 171 mg/dL (80-115) H 10/28/16 06:45 POC Glucose 145 mg/dL (80-115) H 10/28/16 11:39 Hemoglobin A1c 7.10 % (4.50-6.20) H 10/27/16 16:04 Calcium 7.8 mg/dL (8.5-10.1) L 10/28/16 06:45 Magnesium 1.5 mg/dl (1.8-2.4) L 10/28/16 06:45 Total Bilirubin 0.4 mg/dL (0.2-1.0) 10/27/16 16:04 AST 23 U/L (15-37) 10/27/16 16:04 ALT 39 U/L (16-63) 10/27/16 16:04 Alkaline Phosphatase 69 U/L (46-116) 10/27/16 16:04 Troponin I < 0.017 ng/mL (0.00-0.056) 10/28/16 06:45 Total Protein 7.1 g/dl (6.4-8.2) 10/27/16 16:04 Albumin 3.4 g/dl (3.4-5.0) 10/27/16 16:04 Globulin 3.7 gm/dL 10/27/16 16:04 Albumin/Globulin Ratio 0.9 (1-2) L 10/27/16 16:04 Triglycerides 121 mg/dL (<150) 10/28/16 06:45 Cholesterol 66 mg/dL (<200) 10/28/16 06:45 LDL Cholesterol Direct 37 mg/dL (<100) 10/28/16 06:45 HDL Cholesterol 23.0 mg/dL (40-59) L 10/28/16 06:45 Blood Type A POSITIVE 10/27/16 16:04 Gel Antibody Screen Negative 10/27/16 16:04 Crossmatch See Detail 10/27/16 16:04 - Allergies Allergies/Adverse Reactions: Allergies Allergy/AdvReac Type Severity Reaction Status Date / Time celecoxib [From Celebrex] Allergy Indigestion Verified 10/28/16 00:22 - Blood Blood Available: Yes - Anesthesia Plan Beta Fausto: Metoprolol Med Last Dose Date: 10/28/16 Med Last Dose Time: 09:00 - Acknowledgements Anesthesia Type Planned: MAC Pt an Appropriate Candidate for the Planned Anesthesia: Yes Alternatives and Risks of Anesthesia Discussed w Pt/Guardian: Yes Pt/Guardian Understands and Agrees with Anesthesia Plan: Yes PreAnesthesia Questionnaire HEENT History: Reports: Other (See Below) Other HEENT History: WEARS GLASSES Cardiovascular History: Reports: Bypass, CAD, High Cholesterol, Hypertension, [place] , SOB on Exertion Respiratory History: Reports: COPD, Other (See Below) Other Respiratory History: USES CPAP AT NIGHT Genitourinary History: Reports: BPH Musculoskeletal History: Reports: Osteoarthritis Endocrine/Metabolic History: Reports: Diabetes, Type II - Past Surgical History HEENT Surgical History: Reports: Other (See Below) (stitches in mouth where tooth used to be- august 2016) Cardiovascular Surgical History: Reports: Coronary Artery Bypass GI Surgical History: Reports: Colonoscopy Musculoskeletal Surgical History: Reports: Arthroscopic Knee - SUBSTANCE USE Smoking Status *Q: Former Smoker Tobacco Use Within Last Twelve Months: No Second Hand Smoke Exposure: No Days Per Week of Alcohol Use: 0 Recreational Drug Use History: No - HOME MEDS Home Medications: Home Meds Dapagliflozin Propanediol [Farxiga] 5 mg PO DAILY 02/23/16 [History] Fish,Saf,Flx,Brg Oils/O3,6,9#2 [Mhno-Utim-Kpfciz Oil Softgel] 1 each PO DAILY [History] Folic Acid 0.8 mg PO DAILY 02/23/16 [History] Gluc 2KCl/Chondr/Mandi Hy/Hy Ac [Glucosamine & Chondroitin Cap] 1 each PO DAILY 02/23/16 [History] Lisinopril 5 mg PO DAILY 02/23/16 [History] Metoprolol Succinate [Toprol XL 50mg] 50 mg PO DAILY 02/23/16 [History] Multivitamin [Multivitamins] 1 each PO DAILY 02/23/16 [History] atorvaSTATin [Lipitor] 80 mg PO BEDTIME 02/23/16 [History] metFORMIN HCl [Metformin HCl] 1,000 mg PO BID 02/23/16 [History] Aspirin [Halfprin] 81 mg PO DAILY 10/27/16 [History] Exenatide Microspheres [Bydureon] 2 mg SUBCUT ASDIRECTED 10/27/16 [History] glipiZIDE [Glipizide ER] 2.5 mg PO DAILY 10/28/16 [History] - CURRENT (IN HOUSE) MEDS Current Meds: Current Medications Dextrose/Water (Dextrose 50% In Water) 50 ml IVPUSH ASDIRECTED PRN PRN Reason: Hypoglycemia Sodium Chloride (Normal Saline) 1,000 mls @ 250 mls/hr IV ASDIRECTED [facility] Last Admin: 10/28/16 10:11 Dose: 250 mls/hr Pantoprazole Sodium 80 mg/ (Sodium Chloride) 100 mls @ 10 mls/hr IV Q10H [facility] Last Admin: 10/28/16 11:29 Dose: 10 mls/hr Insulin Aspart (Novolog) 0 unit SUBCUT QIDACANDBED [facility] PRN Reason: Protocol Last Admin: 10/28/16 11:54 Dose: Not Given Metoprolol Succinate (Toprol Xl) 25 mg PO DAILY [facility] Last Admin: 10/28/16 09:11 Dose: 25 mg Rosuvastatin Calcium (Crestor) 20 mg PO BEDTIME [facility] Last Admin: 10/27/16 22:16 Dose: 20 mg Discontinued Medications Diatrizoate Meglum/Diatrizoate Sod (Gastrografin 37%) 90 ml PO ONETIME ONE Stop: 10/27/16 18:51 Iopamidol (Isovue-300 (61%)) 125 ml IVPUSH ONETIME ONE Stop: 10/27/16 18:51 Lidocaine HCl (Xylocaine 2% Jelly) 10 ml MUCMEM ONETIME ONE Stop: 10/27/16 16:13 Last Admin: 10/27/16 16:26 Dose: 10 ml Pantoprazole Sodium (Protonix Iv) 40 mg IVPUSH Q12H JREONIMO Last Admin: 10/28/16 09:13 Dose: 40 mg Polyethylene Glycol/Electrolytes (Golytely) 4,000 ml PO ONETIME ONE Stop: 10/28/16 07:59
--- NOTE | 2016-10-28 14:47 | PCM.PN ---
- General Info Date of Service: 10/28/16 Functional Status: Reports: Pain Controlled - Review of Systems General: Reports: No Symptoms HEENT: Reports: No Symptoms Pulmonary: Reports: No Symptoms Cardiovascular: Reports: No Symptoms Gastrointestinal: Reports: No Symptoms Genitourinary: Reports: No Symptoms Musculoskeletal: Reports: No Symptoms Skin: Reports: No Symptoms Neurological: Reports: No Symptoms Psychiatric: Reports: No Symptoms - Patient Data Vitals - Most Recent: Last Vital Signs Temp 36.4 C 10/28/16 12:00 Pulse 75 10/28/16 12:21 Resp 18 10/28/16 12:21 BP 130/77 10/28/16 12:21 Pulse Ox 93 L 10/28/16 12:21 Weight - Most Recent: 109.679 kg I&O - Last 24 Hours: Intake & Output 10/27/16 10/28/16 10/28/16 22:59 06:59 14:59 Intake Total 120 3520 720 Output Total 800 1250 Balance 120 2720 -530 Lab Results Last 24 Hours: Laboratory Results - last 24 hr 10/27/16 10/27/16 10/28/16 Range/Units 20:05 21:02 06:40 WBC 10.03 H (4.23-9.07) K/mm3 RBC 4.94 (4.63-6.08) M/mm3 Hgb 13.2 L (13.7-17.5) gm/L Hct 41.2 (40.1-51.0) % MCV 83.4 (79.0-92.2) fl MCH 26.7 (25.7-32.2) pg MCHC 32.0 L (32.2-35.5) g/dl RDW Std Deviation 44.4 H (35.1-43.9) fL Plt Count 218 (163-337) K/mm3 MPV 10.1 (9.4-12.3) fl Neut % (Auto) 66.6 (34.0-67.9) % Lymph % (Auto) 19.8 L (21.8-53.1) % [place] % (Auto) 10.7 (5.3-12.2) % Eos % (Auto) 2.2 (0.8-7.0) Baso % (Auto) 0.2 (0.1-1.2) % Neut # (Auto) 6.68 H (1.78-5.38) K/mm3 Lymph # (Auto) 1.99 (1.32-3.57) K/mm3 [place] # (Auto) 1.07 H (0.30-0.82) K/mm3 Eos # (Auto) 0.22 (0.04-0.54) K/mm3 Baso # (Auto) 0.02 (0.01-0.08) K/mm3 Sodium (136-145) mEq/L Potassium (3.5-5.1) mEq/L Chloride (98-107) mEq/L Carbon Dioxide (21-32) mEq/L Anion Gap (5-15) BUN (7-18) mg/dL Creatinine (0.7-1.3) mg/dL Est Cr Clr Drug Dosing mL/min Estimated GFR (MDRD) (>60) mL/min BUN/Creatinine Ratio (14-18) Glucose (80-115) mg/dL POC Glucose 106 149 H (80-115) mg/dL Calcium (8.5-10.1) mg/dL Magnesium (1.8-2.4) mg/dl Troponin I (0.00-0.056) ng/mL Triglycerides (<150) mg/dL Cholesterol (<200) mg/dL LDL Cholesterol Direct (<100) mg/dL HDL Cholesterol (40-59) mg/dL 10/28/16 10/28/16 10/28/16 Range/Units 06:45 06:45 11:39 WBC 8.02 (4.23-9.07) K/mm3 RBC 3.89 L (4.63-6.08) M/mm3 Hgb 10.6 L (13.7-17.5) gm/L Hct 32.8 L (40.1-51.0) % MCV 84.3 (79.0-92.2) fl MCH 27.2 (25.7-32.2) pg MCHC 32.3 (32.2-35.5) g/dl RDW Std Deviation 44.0 H (35.1-43.9) fL Plt Count 194 (163-337) K/mm3 MPV 10.5 (9.4-12.3) fl Neut % (Auto) 70.0 H (34.0-67.9) % Lymph % (Auto) 18.6 L (21.8-53.1) % [place] % (Auto) 8.7 (5.3-12.2) % Eos % (Auto) 1.9 (0.8-7.0) Baso % (Auto) 0.2 (0.1-1.2) % Neut # (Auto) 5.61 H (1.78-5.38) K/mm3 Lymph # (Auto) 1.49 (1.32-3.57) K/mm3 [place] # (Auto) 0.70 (0.30-0.82) K/mm3 Eos # (Auto) 0.15 (0.04-0.54) K/mm3 Baso # (Auto) 0.02 (0.01-0.08) K/mm3 Sodium 139 (136-145) mEq/L Potassium 4.0 (3.5-5.1) mEq/L Chloride 107 (98-107) mEq/L Carbon Dioxide 21 (21-32) mEq/L Anion Gap 15.0 (5-15) BUN 10 (7-18) mg/dL Creatinine 0.8 (0.7-1.3) mg/dL Est Cr Clr Drug Dosing 87.88 mL/min Estimated GFR (MDRD) > 60 (>60) mL/min BUN/Creatinine Ratio 12.5 L (14-18) Glucose 171 H (80-115) mg/dL POC Glucose 145 H (80-115) mg/dL Calcium 7.8 L (8.5-10.1) mg/dL Magnesium 1.5 L (1.8-2.4) mg/dl Troponin I < 0.017 (0.00-0.056) ng/mL Triglycerides 121 (<150) mg/dL Cholesterol 66 (<200) mg/dL LDL Cholesterol Direct 37 (<100) mg/dL HDL Cholesterol 23.0 L (40-59) mg/dL Med Orders - Current: Current Medications Dextrose/Water (Dextrose 50% In Water) 50 ml IVPUSH ASDIRECTED PRN PRN Reason: Hypoglycemia Sodium Chloride (Normal Saline) 1,000 mls @ 250 mls/hr IV ASDIRECTED [facility] Last Admin: 10/28/16 14:13 Dose: 250 mls/hr Pantoprazole Sodium 80 mg/ (Sodium Chloride) 100 mls @ 10 mls/hr IV Q10H [facility] Last Admin: 10/28/16 11:29 Dose: 10 mls/hr Insulin Aspart (Novolog) 0 unit SUBCUT QIDACANDBED [facility] PRN Reason: Protocol Last Admin: 10/28/16 11:54 Dose: Not Given Metoprolol Succinate (Toprol Xl) 25 mg PO DAILY [facility] Last Admin: 10/28/16 09:11 Dose: 25 mg Rosuvastatin Calcium (Crestor) 20 mg PO BEDTIME [facility] Last Admin: 10/27/16 22:16 Dose: 20 mg Discontinued Medications Diatrizoate Meglum/Diatrizoate Sod (Gastrografin 37%) 90 ml PO ONETIME ONE Stop: 10/27/16 18:51 Last Admin: 10/27/16 17:50 Dose: 90 ml Iopamidol (Isovue-300 (61%)) 125 ml IVPUSH ONETIME ONE Stop: 10/27/16 18:51 Last Admin: 10/27/16 19:00 Dose: 125 ml Lidocaine HCl (Xylocaine 2% Jelly) 10 ml MUCMEM ONETIME ONE Stop: 10/27/16 16:13 Last Admin: 10/27/16 16:26 Dose: 10 ml Pantoprazole Sodium (Protonix Iv) 40 mg IVPUSH Q12H [facility] Last Admin: 10/28/16 09:13 Dose: 40 mg Polyethylene Glycol/Electrolytes (Golytely) 4,000 ml PO ONETIME ONE Stop: 10/28/16 07:59 - Exam Quality Assessment: DVT Prophylaxis General: Alert, Oriented, Cooperative HEENT: Pupils Equal, Pupils Reactive, EOMI Neck: Supple, Trachea Midline Lungs: Normal Respiratory Effort Cardiovascular: Regular Rate GI/Abdominal Exam: Normal Bowel Sounds, Soft, Non-Tender, No Distention (Male) Exam: Deferred Back Exam: Normal Inspection Extremities: Normal Inspection Skin: Warm Neurological: No New Focal Deficit Psy/Mental Status: Alert - Problem List & Annotations (1) CAD (coronary artery disease) of artery bypass graft SNOMED Code(s): 716187631, 66782786, 009371703, 443166876, 661502661 Code(s): I25.810 - ATHEROSCLEROSIS OF CABG W/O ANGINA PECTORIS Status: Acute Current Visit: Yes (2) Hypertension SNOMED Code(s): 38741953 Code(s): I10 - ESSENTIAL (PRIMARY) HYPERTENSION Status: Acute Current Visit: Yes (3) COPD (chronic obstructive pulmonary disease) SNOMED Code(s): 79094238 Code(s): J44.9 - CHRONIC OBSTRUCTIVE PULMONARY DISEASE, UNSPECIFIED Status : Acute Current Visit: Yes (4) Lower gastrointestinal hemorrhage SNOMED Code(s): 59402296 Code(s): K92.2 - GASTROINTESTINAL HEMORRHAGE, UNSPECIFIED Status: Acute Current Visit: Yes (5) Type 2 diabetes mellitus SNOMED Code(s): 37153810 Code(s): E11.9 - TYPE 2 DIABETES MELLITUS WITHOUT COMPLICATIONS Status: Acute Current Visit: Yes Qualifiers: Diabetes mellitus complication status: with circulatory complication - Problem List Review Problem List Initiated/Reviewed/Updated: Yes - My Orders Last 24 Hours: My Active Orders 10/27/16 20:05 Activity as Tolerated [RC] .Routine Vital Signs [RC] Q4HR 10/27/16 20:10 Accu Check [Blood Glucose Check, Bedside] [RC] QIDACANDBED Notify Provider Consults [RC] ASDIRECTED 10/27/16 20:11 Dextrose 50% in Water 50 ml IVPUSH ASDIRECTED PRN 10/27/16 20:13 Consult to Case Management [CONS] Routine 10/27/16 20:15 Insulin Aspart [NovoLOG] See Protocol SUBCUT QIDACANDBED 10/27/16 20:19 Antiembolic Devices [RC] PER UNIT ROUTINE JUAN ANTONIO Hose [Antiembolic Hose] [OM.PC] Routine 10/27/16 21:00 Rosuvastatin [Crestor] 20 mg PO BEDTIME 10/27/16 Dinner Clear Liquid Diet [DIET] 10/28/16 01:10 Communication Order [RC] 10/28/16 06:45 CA 125 [REF] Routine CEA [REF] Routine 10/28/16 07:00 Consult to Physician [CONS] Routine 10/28/16 09:00 Consult to Occupational Therapy [OT Evaluation and Treatment] [CONS] Routine Consult to Physical Therapy [PT Evaluation and Treatment] [CONS] Routine Metoprolol Succinate [Toprol XL] 25 mg PO DAILY 10/28/16 09:47 Communication Order [RC] ASDIRECTED 10/28/16 10:30 Pantoprazole [ProTONIX IV] 80 mg Sodium Chloride 0.9% [Normal Saline] 100 ml IV Q10H 10/28/16 16:00 HEMOGLOBIN [HEME] Routine 10/29/16 05:00 BMP [BASIC METABOLIC PANEL,BMP] [CHEM] DAILY CBC WITH AUTO DIFF [HEME] DAILY MG [MAGNESIUM] [CHEM] DAILY 10/30/16 05:00 BMP [BASIC METABOLIC PANEL,BMP] [CHEM] DAILY CBC WITH AUTO DIFF [HEME] DAILY MG [MAGNESIUM] [CHEM] DAILY 10/31/16 05:00 BMP [BASIC METABOLIC PANEL,BMP] [CHEM] DAILY CBC WITH AUTO DIFF [HEME] DAILY MG [MAGNESIUM] [CHEM] DAILY - Plan Plan:: Impression: Acute GI Bleed, stable Previously had polyps removed, remote`10 years ago HTN CAD S/P CABG 10 months ago Diabetes mellitus COPD Plan: EGD/Colonoscopy in the am, 10/29/16. IVF Monitor H/H, type and cross, hold 2 units Home meds Daily Labs Clear liquid diet Gen surg consult DVT/GI prophylaxis CM/PT/OT
[2016-10-28] MEDS: Rosuvastatin 10 MG Tab PO SCH (20:41)
[2016-10-29] MEDS: Sodium Chloride 0.9% 1,000 ML IV SCH ×2 (03:11→17:19)
[2016-10-29] MEDS: Pantoprazole 80 MG in Sodium Chloride 0.9% 100 ML IV SCH (07:28)
[2016-10-29] MEDS: Insulin Aspart 100 Units/ML 3 ML Pen SUBCUT SCH ×4 (07:29→22:17)
[2016-10-29] MEDS: Metoprolol Succinate 50 MG Tab.ER PO SCH ×2 (07:52→09:14)
[2016-10-29] MEDS ORDERED: Lidocaine 1% 4 ML ONE ×2 (08:43→21:40)
[2016-10-29] MEDS ORDERED: Propofol 200 MG/20 ML SDV ONE ×2 (08:43→21:41)
[2016-10-29] MEDS ORDERED: fentaNYL 100 MCG/2 ML SDV ONE ×2 (08:44→21:41)
[2016-10-29] MEDS ORDERED: Midazolam 1 MG/ML 2 ML SDV ONE ×2 (09:40→22:04)
--- NOTE | 2016-10-29 10:03 | PCM48HPAN ---
Post Anesthesia Note - EVALUATION WITHIN 48HRS OF ANESTHETIC Vital Signs in Normal Range: Yes Patient Participated in Evaluation: Yes Respiratory Function Stable: Yes Airway Patent: Yes Cardiovascular Function Stable: Yes Hydration Status Stable: Yes Pain Control Satisfactory: Yes Nausea and Vomiting Control Satisfactory: Yes Mental Status Recovered: Yes
--- NOTE | 2016-10-29 10:09 | PCM.OPNOTE ---
- General Post-Op/Procedure Note Date of Surgery/Procedure: 10/29/16 Operative Procedure(s): 1. Esophagogastroduodenoscopy. 2. Colonoscopy with cold forceps polypectomy of 2 ascending colonic polyps and one rectal polyp Findings: 1. Small Dieulafoy lesion at the GE junction on the lesser curve which was not bleeding that was no luminal or duodenal gastric blood. There were no varices or peptic change throughout the body of the stomach and duodenum. 2. He had minor internal hemorrhoids. There were large sigmoid diverticuli and smaller transverse and descending colonic diverticuli. There were 3 polyps within the colon and rectum two in the ascending colon and one in the rectum. All were diminutive and hyperplastic in nature and all were less than 5 mm in diameter. There was particulate old blood as no april bleeding seen. The large bowel and rectum had no mass lesions or inflammatory changes. Pre Op Diagnosis: Acute GI bleed of unknown etiology Post-Op Diagnosis: 1. Gastric Dieulafoy lesion. 2. Internal hemorrhoids. 3. Sigmoid diverticulosis large as well as smaller descending and transverse colonic diverticuli. 4. 3 diminutive colorectal polyps Anesthesia Technique: MAC, Moderate Sedation Primary Surgeon: Kory Hernandez Pathology: 3 small polyps 5 mm in diameter EBL in mLs: 0 Complications: None Condition: Good Free Text/Narrative:: Intake & Output 10/28/16 10/29/16 10/29/16 22:59 06:59 14:59 Intake Total 8546 582 Output Total 900 200 400 Balance 7646 382 -400 After adequate IV sedation and analgesia was obtained the patient was placed on his left side. Through a bite block a lubricated upper endoscope was inserted into the esophagus and advanced under direct vision to the body of the stomach. Additional air was given here. There was no luminal blood present. The scope was advanced towards the antrum and then into the pylorus to the proximal third part of the duodenum. The second and first parts were endoscopically normal. The ampulla of water and the area surrounding it were endoscopically normal with no mass lesions. There were no inflammatory change and/or mass lesions seen throughout the duodenum. The prepyloric and antral areas likewise were unremarkable. The body of the stomach had normal folds and had no peptic change. In the retroflexed view the fundus was unremarkable. There was a very small hemostatic vascular submucosal appearing lesion on the lesser curve just distal to the GE junction. It was not pulsatile and not large in size. There was no clot present. It appeared to be a Dieulafoy type lesion. The scope was withdrawn to the GE junction which were sharp. From the prograde view the lesion couldn't be seen. The body of the esophagus was normal. There were no esophageal gastric varices. The vocal cords were briefly visualized on extubation and they were normal as well. Air was removed as I finished the procedure which he tolerated well. Examination Scorer photographs were taken for the patient for the record. Perianal inspection and digital rectal examination revealed the internal hemorrhoids. A lubricated colonoscope was inserted into the rectum then advanced through a tortuous sigmoid colon which had large diverticuli to the cecum. There was old luminal blood present within the colon. The bowel preparation was adequate. The cecum was unremarkable. The descending colon had 2 diminutive polyps which were removed with cold forceps. The transverse colon had a few small diverticuli. There were no mass lesions or inflammatory changes in this area as well. The descending colon had a few small diverticuli but the largest diverticuli were in the sigmoid along with some hypertrophy of the circular muscular. There were no mass lesions or inflammatory changes here as well. Within the rectum at about 15 cm there was a 5 mm diminutive polyp which was removed with the cold forceps. The specimen was captured and the area was hemostatic. In the retroflexed view I could see the internal hemorrhoids. Air was removed as I finished the procedure which he tolerated well. Photographs were taken for the patient and for the record.
--- NOTE | 2016-10-29 12:47 | PCM.PN ---
- General Info Date of Service: 10/29/16 Functional Status: Reports: Other (NPO pre procedure) - Review of Systems General: Reports: No Symptoms HEENT: Reports: No Symptoms Pulmonary: Reports: No Symptoms Cardiovascular: Reports: No Symptoms Gastrointestinal: Reports: No Symptoms Genitourinary: Reports: No Symptoms Musculoskeletal: Reports: No Symptoms Skin: Reports: No Symptoms Neurological: Reports: No Symptoms Psychiatric: Reports: No Symptoms - Patient Data Vitals - Most Recent: Last Vital Signs Temp 36.4 C 10/29/16 11:52 Pulse 62 10/29/16 11:52 Resp 16 10/29/16 11:52 BP 112/65 10/29/16 11:52 Pulse Ox 97 10/29/16 11:52 Weight - Most Recent: 111.493 kg I&O - Last 24 Hours: Intake & Output 10/28/16 10/29/16 10/29/16 22:59 06:59 14:59 Intake Total 8546 582 0 Output Total 900 200 400 Balance 7646 382 -400 Lab Results Last 24 Hours: Laboratory Results - last 24 hr 10/28/16 10/28/16 10/28/16 Range/Units 06:45 16:05 17:05 WBC (4.23-9.07) K/mm3 RBC (4.63-6.08) M/mm3 Hgb 9.7 L (13.7-17.5) gm/L Hct (40.1-51.0) % MCV (79.0-92.2) fl MCH (25.7-32.2) pg MCHC (32.2-35.5) g/dl RDW Std Deviation (35.1-43.9) fL Plt Count (163-337) K/mm3 MPV (9.4-12.3) fl Neut % (Auto) (34.0-67.9) % Lymph % (Auto) (21.8-53.1) % [place] % (Auto) (5.3-12.2) % Eos % (Auto) (0.8-7.0) Baso % (Auto) (0.1-1.2) % Neut # (Auto) (1.78-5.38) K/mm3 Lymph # (Auto) (1.32-3.57) K/mm3 [place] # (Auto) (0.30-0.82) K/mm3 Eos # (Auto) (0.04-0.54) K/mm3 Baso # (Auto) (0.01-0.08) K/mm3 Sodium (136-145) mEq/L Potassium (3.5-5.1) mEq/L Chloride (98-107) mEq/L Carbon Dioxide (21-32) mEq/L Anion Gap (5-15) BUN (7-18) mg/dL Creatinine (0.7-1.3) mg/dL Est Cr Clr Drug Dosing mL/min Estimated GFR (MDRD) (>60) mL/min BUN/Creatinine Ratio (14-18) Glucose (80-115) mg/dL POC Glucose 135 H (80-115) mg/dL Calcium (8.5-10.1) mg/dL Magnesium (1.8-2.4) mg/dl Carcinoembryonic Ag 1.1 (0.0-3.0) ng/mL 10/28/16 10/28/16 10/29/16 Range/Units 20:48 23:08 05:45 WBC 7.39 (4.23-9.07) K/mm3 RBC 3.13 L (4.63-6.08) M/mm3 Hgb 9.1 L 8.5 L (13.7-17.5) gm/L Hct 26.7 L (40.1-51.0) % MCV 85.3 (79.0-92.2) fl MCH 27.2 (25.7-32.2) pg MCHC 31.8 L (32.2-35.5) g/dl RDW Std Deviation 43.6 (35.1-43.9) fL Plt Count 177 (163-337) K/mm3 MPV 10.5 (9.4-12.3) fl Neut % (Auto) 69.9 H (34.0-67.9) % Lymph % (Auto) 18.7 L (21.8-53.1) % [place] % (Auto) 8.4 (5.3-12.2) % Eos % (Auto) 2.2 (0.8-7.0) Baso % (Auto) 0.3 (0.1-1.2) % Neut # (Auto) 5.17 (1.78-5.38) K/mm3 Lymph # (Auto) 1.38 (1.32-3.57) K/mm3 [place] # (Auto) 0.62 (0.30-0.82) K/mm3 Eos # (Auto) 0.16 (0.04-0.54) K/mm3 Baso # (Auto) 0.02 (0.01-0.08) K/mm3 Sodium (136-145) mEq/L Potassium (3.5-5.1) mEq/L Chloride (98-107) mEq/L Carbon Dioxide (21-32) mEq/L Anion Gap (5-15) BUN (7-18) mg/dL Creatinine (0.7-1.3) mg/dL Est Cr Clr Drug Dosing mL/min Estimated GFR (MDRD) (>60) mL/min BUN/Creatinine Ratio (14-18) Glucose (80-115) mg/dL POC Glucose 155 H (80-115) mg/dL Calcium (8.5-10.1) mg/dL Magnesium (1.8-2.4) mg/dl Carcinoembryonic Ag (0.0-3.0) ng/mL 10/29/16 10/29/16 10/29/16 Range/Units 05:45 07:22 11:17 WBC (4.23-9.07) K/mm3 RBC (4.63-6.08) M/mm3 Hgb (13.7-17.5) gm/L Hct (40.1-51.0) % MCV (79.0-92.2) fl MCH (25.7-32.2) pg MCHC (32.2-35.5) g/dl RDW Std Deviation (35.1-43.9) fL Plt Count (163-337) K/mm3 MPV (9.4-12.3) fl Neut % (Auto) (34.0-67.9) % Lymph % (Auto) (21.8-53.1) % [place] % (Auto) (5.3-12.2) % Eos % (Auto) (0.8-7.0) Baso % (Auto) (0.1-1.2) % Neut # (Auto) (1.78-5.38) K/mm3 Lymph # (Auto) (1.32-3.57) K/mm3 [place] # (Auto) (0.30-0.82) K/mm3 Eos # (Auto) (0.04-0.54) K/mm3 Baso # (Auto) (0.01-0.08) K/mm3 Sodium 139 (136-145) mEq/L Potassium 3.9 (3.5-5.1) mEq/L Chloride 109 H (98-107) mEq/L Carbon Dioxide 24 (21-32) mEq/L Anion Gap 9.9 (5-15) BUN 6 L (7-18) mg/dL Creatinine 0.8 (0.7-1.3) mg/dL Est Cr Clr Drug Dosing 87.88 mL/min Estimated GFR (MDRD) > 60 (>60) mL/min BUN/Creatinine Ratio 7.5 L (14-18) Glucose 145 H (80-115) mg/dL POC Glucose 143 H 137 H (80-115) mg/dL Calcium 8.0 L (8.5-10.1) mg/dL Magnesium 1.3 L (1.8-2.4) mg/dl Carcinoembryonic Ag (0.0-3.0) ng/mL Med Orders - Current: Current Medications Dextrose/Water (Dextrose 50% In Water) 50 ml IVPUSH ASDIRECTED PRN PRN Reason: Hypoglycemia Pantoprazole Sodium 80 mg/ (Sodium Chloride) 100 mls @ 10 mls/hr IV Q10H [facility] Last Admin: 10/29/16 07:28 Dose: 10 mls/hr Sodium Chloride (Normal Saline) 1,000 mls @ 75 mls/hr IV ASDIRECTED [facility] Last Admin: 10/29/16 03:11 Dose: 75 mls/hr Insulin Aspart (Novolog) 0 unit SUBCUT QIDACANDBED [facility] PRN Reason: Protocol Last Admin: 10/29/16 07:29 Dose: Not Given Metoprolol Succinate (Toprol Xl) 25 mg PO DAILY [facility] Last Admin: 10/29/16 09:14 Dose: Not Given Rosuvastatin Calcium (Crestor) 20 mg PO BEDTIME [facility] Last Admin: 10/28/16 20:41 Dose: 20 mg Discontinued Medications Diatrizoate Meglum/Diatrizoate Sod (Gastrografin 37%) 90 ml PO ONETIME ONE Stop: 10/27/16 18:51 Last Admin: 10/27/16 17:50 Dose: 90 ml Fentanyl (Sublimaze) Confirm Administered Dose 100 mcg .ROUTE .STK-MED ONE Stop: 10/29/16 08:45 Sodium Chloride (Normal Saline) 1,000 mls @ 250 mls/hr IV ASDIRECTED [facility] Last Infusion: 10/28/16 20:45 Dose: 75 mls/hr Lidocaine HCl (Xylocaine-Mpf 1%) Confirm Administered Dose 4 mls @ as directed .ROUTE .STK-MED ONE Stop: 10/29/16 08:44 Iopamidol (Isovue-300 (61%)) 125 ml IVPUSH ONETIME ONE Stop: 10/27/16 18:51 Last Admin: 10/27/16 19:00 Dose: 125 ml Lidocaine HCl (Xylocaine 2% Jelly) 10 ml MUCMEM ONETIME ONE Stop: 10/27/16 16:13 Last Admin: 10/27/16 16:26 Dose: 10 ml Midazolam HCl (Versed 1 Mg/Ml) Confirm Administered Dose 2 mg .ROUTE .STK-MED ONE Stop: 10/29/16 09:41 Pantoprazole Sodium (Protonix Iv) 40 mg IVPUSH Q12H [facility] Last Admin: 10/28/16 09:13 Dose: 40 mg Polyethylene Glycol/Electrolytes (Golytely) 4,000 ml PO ONETIME ONE Stop: 10/28/16 07:59 Last Admin: 10/28/16 17:36 Dose: 4 liter Propofol (Diprivan 20 Ml) Confirm Administered Dose 200 mg .ROUTE .STK-MED ONE Stop: 10/29/16 08:44 - Exam Quality Assessment: Supplemental Oxygen, DVT Prophylaxis General: Alert, Oriented, No Acute Distress HEENT: Pupils Equal, Pupils Reactive, EOMI Neck: Supple, Trachea Midline Lungs: Normal Respiratory Effort Cardiovascular: Regular Rate, Regular Rhythm GI/Abdominal Exam: Normal Bowel Sounds, Soft, Non-Tender, No Distention (Male) Exam: Deferred Back Exam: Normal Inspection Extremities: Normal Inspection Skin: Warm Neurological: No New Focal Deficit Psy/Mental Status: Alert, Normal Affect, Normal Mood - Problem List & Annotations (1) CAD (coronary artery disease) of artery bypass graft SNOMED Code(s): 645125234, 63040780, 409107125, 202697711, 146999747 Code(s): I25.810 - ATHEROSCLEROSIS OF CABG W/O ANGINA PECTORIS Status: Acute Current Visit: Yes (2) Hypertension SNOMED Code(s): 65144030 Code(s): I10 - ESSENTIAL (PRIMARY) HYPERTENSION Status: Acute Current Visit: Yes (3) COPD (chronic obstructive pulmonary disease) SNOMED Code(s): 42553186 Code(s): J44.9 - CHRONIC OBSTRUCTIVE PULMONARY DISEASE, UNSPECIFIED Status : Acute Current Visit: Yes (4) Lower gastrointestinal hemorrhage SNOMED Code(s): 37788868 Code(s): K92.2 - GASTROINTESTINAL HEMORRHAGE, UNSPECIFIED Status: Acute Current Visit: Yes (5) Type 2 diabetes mellitus SNOMED Code(s): 79218583 Code(s): E11.9 - TYPE 2 DIABETES MELLITUS WITHOUT COMPLICATIONS Status: Acute Current Visit: Yes Qualifiers: Diabetes mellitus complication status: with circulatory complication - Problem List Review Problem List Initiated/Reviewed/Updated: Yes - My Orders Last 24 Hours: My Active Orders 10/28/16 16:39 CPAP Adult [RT BiPAP/CPAP] [RC] ASDIRECTED 10/28/16 20:30 Sodium Chloride 0.9% [Normal Saline] 1,000 ml IV ASDIRECTED 10/29/16 Lunch Clear Liquid Diet [DIET] 10/30/16 05:00 BMP [BASIC METABOLIC PANEL,BMP] [CHEM] DAILY CBC WITH AUTO DIFF [HEME] DAILY MG [MAGNESIUM] [CHEM] DAILY 10/31/16 05:00 BMP [BASIC METABOLIC PANEL,BMP] [CHEM] DAILY CBC WITH AUTO DIFF [HEME] DAILY MG [MAGNESIUM] [CHEM] DAILY - Plan Plan:: Impression: Acute GI Bleed, stable Previously had polyps removed, remote ~10 years ago HTN CAD S/P CABG 10 months ago Diabetes mellitus, does not check accucheck; believes the DM educator takes care of everything. COPD Plan: EGD/Colonoscopy today IVF--saline lock. Monitor H/H, type and cross; transfuse today; give lasix after each unit. Replace electrolytes Home meds Daily Labs Clear liquid diet DVT/GI prophylaxis CM/PT/OT
[2016-10-29] MEDS ORDERED: Magnesium Sulfate/Water 2 GM in Premix Bag 1 BAG IV ONE (13:33)
[2016-10-29] MEDS: Pantoprazole 40 MG Tab.CR PO SCH ×2 (14:36→17:15)
[2016-10-29] MEDS: Rosuvastatin 10 MG Tab PO SCH (20:00)
--- NOTE | 2016-10-29 21:01 | PCM.CONSN ---
- General Info Date of Service: 10/29/16 Admission Dx/Problem (Free Text): GI bleeding status post panendoscopy Functional Status: Reports: Tolerating Diet - Review of Systems General: Reports: No Symptoms Gastrointestinal: Reports: Abdominal Pain (Right upper quadrant cramping which he calls a nervous stomach), Other (Complained of red bleeding dripping per rectum) - Patient Data Vitals - Most Recent: Last Vital Signs Temp 36.9 C 10/29/16 16:00 Pulse 69 10/29/16 16:00 Resp 18 10/29/16 16:00 BP 105/67 10/29/16 16:00 Pulse Ox 92 L 10/29/16 16:00 Weight - Most Recent: 111.493 kg I&O - Last 24 Hours: Intake & Output 10/29/16 10/29/16 10/29/16 06:59 14:59 22:59 Intake Total 301 962 9815 Output Total 200 1200 400 Balance 382 -790 2802 Lab Results Last 24 Hours: Laboratory Results - last 24 hr 10/28/16 10/28/16 10/29/16 Range/Units 06:45 23:08 05:45 WBC 7.39 (4.23-9.07) K/mm3 RBC 3.13 L (4.63-6.08) M/mm3 Hgb 9.1 L 8.5 L (13.7-17.5) gm/L Hct 26.7 L (40.1-51.0) % MCV 85.3 (79.0-92.2) fl MCH 27.2 (25.7-32.2) pg MCHC 31.8 L (32.2-35.5) g/dl RDW Std Deviation 43.6 (35.1-43.9) fL Plt Count 177 (163-337) K/mm3 MPV 10.5 (9.4-12.3) fl Neut % (Auto) 69.9 H (34.0-67.9) % Lymph % (Auto) 18.7 L (21.8-53.1) % [place] % (Auto) 8.4 (5.3-12.2) % Eos % (Auto) 2.2 (0.8-7.0) Baso % (Auto) 0.3 (0.1-1.2) % Neut # (Auto) 5.17 (1.78-5.38) K/mm3 Lymph # (Auto) 1.38 (1.32-3.57) K/mm3 [place] # (Auto) 0.62 (0.30-0.82) K/mm3 Eos # (Auto) 0.16 (0.04-0.54) K/mm3 Baso # (Auto) 0.02 (0.01-0.08) K/mm3 Sodium (136-145) mEq/L Potassium (3.5-5.1) mEq/L Chloride (98-107) mEq/L Carbon Dioxide (21-32) mEq/L Anion Gap (5-15) BUN (7-18) mg/dL Creatinine (0.7-1.3) mg/dL Est Cr Clr Drug Dosing mL/min Estimated GFR (MDRD) (>60) mL/min BUN/Creatinine Ratio (14-18) Glucose (80-115) mg/dL POC Glucose (80-115) mg/dL Calcium (8.5-10.1) mg/dL Magnesium (1.8-2.4) mg/dl Carcinoembryonic Ag 1.1 (0.0-3.0) ng/mL 10/29/16 10/29/16 10/29/16 Range/Units 05:45 07:22 11:17 WBC (4.23-9.07) K/mm3 RBC (4.63-6.08) M/mm3 Hgb (13.7-17.5) gm/L Hct (40.1-51.0) % MCV (79.0-92.2) fl MCH (25.7-32.2) pg MCHC (32.2-35.5) g/dl RDW Std Deviation (35.1-43.9) fL Plt Count (163-337) K/mm3 MPV (9.4-12.3) fl Neut % (Auto) (34.0-67.9) % Lymph % (Auto) (21.8-53.1) % [place] % (Auto) (5.3-12.2) % Eos % (Auto) (0.8-7.0) Baso % (Auto) (0.1-1.2) % Neut # (Auto) (1.78-5.38) K/mm3 Lymph # (Auto) (1.32-3.57) K/mm3 [place] # (Auto) (0.30-0.82) K/mm3 Eos # (Auto) (0.04-0.54) K/mm3 Baso # (Auto) (0.01-0.08) K/mm3 Sodium 139 (136-145) mEq/L Potassium 3.9 (3.5-5.1) mEq/L Chloride 109 H (98-107) mEq/L Carbon Dioxide 24 (21-32) mEq/L Anion Gap 9.9 (5-15) BUN 6 L (7-18) mg/dL Creatinine 0.8 (0.7-1.3) mg/dL Est Cr Clr Drug Dosing 87.88 mL/min Estimated GFR (MDRD) > 60 (>60) mL/min BUN/Creatinine Ratio 7.5 L (14-18) Glucose 145 H (80-115) mg/dL POC Glucose 143 H 137 H (80-115) mg/dL Calcium 8.0 L (8.5-10.1) mg/dL Magnesium 1.3 L (1.8-2.4) mg/dl Carcinoembryonic Ag (0.0-3.0) ng/mL Med Orders - Current: Current Medications Dextrose/Water (Dextrose 50% In Water) 50 ml IVPUSH ASDIRECTED PRN PRN Reason: Hypoglycemia Sodium Chloride (Normal Saline) 1,000 mls @ 75 mls/hr IV ASDIRECTED [facility] Last Admin: 10/29/16 17:19 Dose: 75 mls/hr Magnesium Sulfate 2 gm/ Premix 50 mls @ 25 mls/hr IV ONETIME ONE Stop: 10/30/16 09:59 Insulin Aspart (Novolog) 0 unit SUBCUT QIDACANDBED [facility] PRN Reason: Protocol Last Admin: 10/29/16 19:55 Dose: Not Given Lisinopril (Prinivil) 5 mg PO DAILY [facility] Metoprolol Succinate (Toprol Xl) 25 mg PO DAILY [facility] Last Admin: 10/29/16 09:14 Dose: Not Given Pantoprazole Sodium (Protonix) 40 mg PO BIDAC [facility] Last Admin: 10/29/16 17:15 Dose: 40 mg Rosuvastatin Calcium (Crestor) 20 mg PO BEDTIME [facility] Last Admin: 10/29/16 20:00 Dose: 20 mg Discontinued Medications Diatrizoate Meglum/Diatrizoate Sod (Gastrografin 37%) 90 ml PO ONETIME ONE Stop: 10/27/16 18:51 Last Admin: 10/27/16 17:50 Dose: 90 ml Fentanyl (Sublimaze) Confirm Administered Dose 100 mcg .ROUTE .STK-MED ONE Stop: 10/29/16 08:45 Sodium Chloride (Normal Saline) 1,000 mls @ 250 mls/hr IV ASDIRECTED [facility] Last Infusion: 10/28/16 20:45 Dose: 75 mls/hr Pantoprazole Sodium 80 mg/ (Sodium Chloride) 100 mls @ 10 mls/hr IV Q10H [facility] Last Admin: 10/29/16 07:28 Dose: 10 mls/hr Lidocaine HCl (Xylocaine-Mpf 1%) Confirm Administered Dose 4 mls @ as directed .ROUTE .STK-MED ONE Stop: 10/29/16 08:44 Magnesium Sulfate 2 gm/ Premix 50 mls @ 25 mls/hr IV ONETIME ONE Stop: 10/29/16 15:32 Last Admin: 10/29/16 14:36 Dose: 25 mls/hr Iopamidol (Isovue-300 (61%)) 125 ml IVPUSH ONETIME ONE Stop: 10/27/16 18:51 Last Admin: 10/27/16 19:00 Dose: 125 ml Lidocaine HCl (Xylocaine 2% Jelly) 10 ml MUCMEM ONETIME ONE Stop: 10/27/16 16:13 Last Admin: 10/27/16 16:26 Dose: 10 ml Midazolam HCl (Versed 1 Mg/Ml) Confirm Administered Dose 2 mg .ROUTE .STK-MED ONE Stop: 10/29/16 09:41 Pantoprazole Sodium (Protonix Iv) 40 mg IVPUSH Q12H [facility] Last Admin: 10/28/16 09:13 Dose: 40 mg Polyethylene Glycol/Electrolytes (Golytely) 4,000 ml PO ONETIME ONE Stop: 10/28/16 07:59 Last Admin: 10/28/16 17:36 Dose: 4 liter Propofol (Diprivan 20 Ml) Confirm Administered Dose 200 mg .ROUTE .STK-MED ONE Stop: 10/29/16 08:44 - Exam GI/Abdominal Exam: Non-Tender, Other (Some red blood on rectal exam) Consult PN Assessment/Plan Procedures: Procedures ANTINUCLEAR ANTIBODIES (07/08/14) ASSAY IGA/IGD/IGG/IGM EACH (07/08/14) ASSAY OF BLOOD LIPOPROTEIN (12/12/14) ASSAY OF CERULOPLASMIN (05/15/14) ASSAY OF FERRITIN (05/15/14) ASSAY OF IRON (05/15/14) ASSAY OF TRANSFERRIN (05/15/14) C-REACTIVE PROTEIN (05/05/14) CARDIAC REHAB/MONITOR (03/01/16) CHEST X-RAY 2VW FRONTAL&LATL (05/05/14) COMPLETE CBC AUTOMATED (05/07/16) COMPLETE CBC W/AUTO DIFF WBC (05/05/14) COMPREHEN METABOLIC PANEL (05/07/16) EMERGENCY DEPT VISIT (05/05/14) GLYCOSYLATED HEMOGLOBIN TEST (05/07/16) HEP B SURFACE ANTIBODY (05/15/14) HEPATIC FUNCTION PANEL (05/15/14) HEPATITIS B SURFACE AG IA (05/15/14) HEPATITIS C AB TEST (05/15/14) IMMUNOASSAY NONANTIBODY (05/15/14) INFLUENZA ASSAY W/OPTIC (05/05/14) MICROALBUMIN QUANTITATIVE (05/07/16) ROUTINE VENIPUNCTURE (05/07/16) (1) Gastrointestinal bleeding SNOMED Code(s): 01302045 Code(s): K92.2 - GASTROINTESTINAL HEMORRHAGE, UNSPECIFIED Priority: High Current Visit: Yes Comment: Possible recurrent bleeding Problem List Initiated/Reviewed/Updated: Yes My Orders Last 24 Hours: My Active Orders 10/29/16 07:58 Verify Patient Consent Obtain [RC] ASDIRECTED imp: Bright red blood per rectum. Hemodynamic stable. This may be a recurrent upper GI bleed from what I thought was a Dieulafoy lesion. I think that a repeat upper endoscopy to evaluate that area is indicated. If there is no luminal blood within the stomach or duodenum, and the lesion seen earlier is not bleeding, then my original diagnosis was wrong. This patient may have a small bowel source of his bleeding that I couldn't assess with the upper endoscope and he will need other localization studies such as technetium scan or angiography with or without embolization. If the lesion is bleeding then I will clip it. plan: Repeat upper endoscopy. I discussed all the above with the patient and his . They had no reservation about me proceeding.
[2016-10-29 21:05] VITALS: BP 114/62
--- NOTE | 2016-10-29 22:09 | PCM.OPNOTE ---
- General Post-Op/Procedure Note Date of Surgery/Procedure: 10/29/16 Operative Procedure(s): Esophagogastroduodenoscopy Findings: Food in the stomach but no blood and no sites of bleeding. The lesion seen earlier in the area of the GE junction may have just been an incidental finding. Pre Op Diagnosis: Possible recurrent upper GI bleed Post-Op Diagnosis: Small bowel or colonic source of bleeding most likely Anesthesia Technique: MAC, Moderate Sedation Primary Surgeon: Kory Hernandez Pathology: None EBL in mLs: 0 Complications: None Condition: Good Free Text/Narrative:: Intake & Output 10/29/16 10/29/16 10/29/16 06:59 14:59 22:59 Intake Total 566 468 3729 Output Total 200 1200 400 Balance 382 -790 2802 After adequate IV sedation and analgesia was obtained the patient was positioned on his left side with monitoring. Through a bite block a lubricated therapeutic upper endoscope was inserted into the esophagus and advanced under direct vision into the stomach without difficulty. Additional air was given here. There was some food in the stomach. There was no luminal blood at all. The scope was advanced towards the antrum and then through the pylorus into the second portion the duodenum. The proximal third and second parts of the duodenum had no blood in the lumen whatsoever. The first part was unchanged. The antrum was unremarkable. In the retroflexed view there was no blood within the lumen of the stomach at all. The lesion that was seen previously was stable. The body of the esophagus was unchanged from the previous examination. Additional photographs were taken for the patient and for the medical record. This negative upper endoscopy suggests that this patient's bleeding source may be the small bowel, or the large bowel -- perhaps, one of the colonic diverticula seen earlier, or an AVM. I recommend localization studies to identify the source of this GI bleeding.
[2016-10-29] MEDS ORDERED: Sodium Chloride 0.9% 1,000 ML ONE (23:20)
--- NOTE | 2016-10-29 23:21 | PCM.DCSUM1 ---
Discharge Summary - Hospital Course Free Text/Narrative:: 66 year old male with PMH of CAD S/P CABG (Dec 2015) presented with painless abdominal bleeding. He was subsequently admitted to the ICU for close monitoring after having at least three large bloody bowel movement in the ED. Baseline Hgb 13.1---at its lowest value, it was 8.4. He received 2 units of PRBC, and the Hgb went up to 9.4. He went for an EGD/Colonoscopy on Tuesday, . The results were: Gastric Dieulafoy lesion; internal hemorrhoids; diffuse diverticulosis. There was no active bleeding. Post op he began with a clear liquids diet and advanced to full liquids diet before having another episode of BRBPR. A transfer was arranged with a [facility], more care was needed in light of active bleeding without a identified location. The accepting hospitalist, Dr Poon; GI relationship consultant, Dr Bubba Sheldon. The patient was transferred by ground transportation. At transfer, VSS, IVF 0.9 NS @ 100 cc/hr. Primary Dx LGI bleed, unspecified Anemia CAD S/P CABG Diabetes Mellitus type 2 Consultants General Surgery Condition Stable Activity Bedrest Diet NPO Medication See list provided in DC plan. - Discharge Data Discharge Date: 10/29/16 Discharge Disposition: DC/Tfer to Acute Hospital 02 Condition: Good - Discharge Diagnosis/Problem(s) (1) CAD (coronary artery disease) of artery bypass graft SNOMED Code(s): 087553947, 35323549, 733495184, 603602639, 318896780 ICD Code: I25.810 - ATHEROSCLEROSIS OF CABG W/O ANGINA PECTORIS Status: Acute (2) Hypertension SNOMED Code(s): 62923969 ICD Code: I10 - ESSENTIAL (PRIMARY) HYPERTENSION Status: Acute (3) COPD (chronic obstructive pulmonary disease) SNOMED Code(s): 86183737 ICD Code: J44.9 - CHRONIC OBSTRUCTIVE PULMONARY DISEASE, UNSPECIFIED Status : Acute (4) Lower gastrointestinal hemorrhage SNOMED Code(s): 18136576 ICD Code: K92.2 - GASTROINTESTINAL HEMORRHAGE, UNSPECIFIED Status: Acute (5) Type 2 diabetes mellitus SNOMED Code(s): 78666369 ICD Code: E11.9 - TYPE 2 DIABETES MELLITUS WITHOUT COMPLICATIONS Status: Acute Qualifiers: Diabetes mellitus complication status: with circulatory complication - Patient Summary/Data Operative Procedure(s) Performed: Esophagogastroduodenoscopy Consults: Consultations 10/27/16 20:13 Consult to Case Management [CONS] Routine 10/28/16 07:00 Consult to Physician [CONS] Routine 10/28/16 09:00 Consult to Occupational Therapy [OT Evaluation and Treatment] [CONS] Routine Consult to Physical Therapy [PT Evaluation and Treatment] [CONS] Routine 10/29/16 13:28 Consult to Diabetic Nurse Specialist [CONS] Routine - Patient Instructions Diet: NPO Activity: No Strenuous Activities Showering/Bathing: June Shower Notify Provider of: Nausea and/or Vomiting - Discharge Plan Home Medications: Home Meds Metoprolol Succinate [Toprol XL 50mg] 50 mg PO DAILY 02/23/16 [History] atorvaSTATin [Lipitor] 80 mg PO BEDTIME 02/23/16 [History] Patient Handouts: Gastrointestinal Bleeding, [id number], How to Avoid Diabetes Problems, Type 2 Diabetes Mellitus, Adult, [id number], Blood Glucose Monitoring, Adult Forms: ED Department Discharge Referrals: Jolly Green PA-C [Primary Care Provider] - - Discharge Summary/Plan Comment DC Time >30 min.: No - General Info Date of Service: 10/27/16 Functional Status: Reports: Pain Controlled - Review of Systems General: Reports: Weakness HEENT: Reports: No Symptoms Pulmonary: Reports: No Symptoms Cardiovascular: Reports: No Symptoms Gastrointestinal: Reports: Hematochezia, Melena Genitourinary: Reports: No Symptoms Musculoskeletal: Reports: No Symptoms Skin: Reports: No Symptoms Neurological: Reports: No Symptoms Psychiatric: Reports: No Symptoms - Patient Data Vitals - Most Recent: Last Vital Signs Temp 36.3 C 10/29/16 20:18 Pulse 69 10/29/16 20:18 Resp 14 10/29/16 20:18 BP 114/62 10/29/16 20:18 Pulse Ox 94 L 10/29/16 20:18 Weight - Most Recent: 111.493 kg I&O - Last 24 hours: Intake & Output 10/29/16 10/29/16 10/30/16 14:59 22:59 06:59 Intake Total 410 3202 Output Total 1200 400 Balance -790 2802 Lab Results - Last 24 hrs: Laboratory Results - last 24 hr 10/28/16 10/29/16 10/29/16 Range/Units 23:08 05:45 05:45 WBC 7.39 (4.23-9.07) K/mm3 RBC 3.13 L (4.63-6.08) M/mm3 Hgb 9.1 L 8.5 L (13.7-17.5) gm/L Hct 26.7 L (40.1-51.0) % MCV 85.3 (79.0-92.2) fl MCH 27.2 (25.7-32.2) pg MCHC 31.8 L (32.2-35.5) g/dl RDW Std Deviation 43.6 (35.1-43.9) fL Plt Count 177 (163-337) K/mm3 MPV 10.5 (9.4-12.3) fl Neut % (Auto) 69.9 H (34.0-67.9) % Lymph % (Auto) 18.7 L (21.8-53.1) % [place] % (Auto) 8.4 (5.3-12.2) % Eos % (Auto) 2.2 (0.8-7.0) Baso % (Auto) 0.3 (0.1-1.2) % Neut # (Auto) 5.17 (1.78-5.38) K/mm3 Lymph # (Auto) 1.38 (1.32-3.57) K/mm3 [place] # (Auto) 0.62 (0.30-0.82) K/mm3 Eos # (Auto) 0.16 (0.04-0.54) K/mm3 Baso # (Auto) 0.02 (0.01-0.08) K/mm3 Sodium 139 (136-145) mEq/L Potassium 3.9 (3.5-5.1) mEq/L Chloride 109 H (98-107) mEq/L Carbon Dioxide 24 (21-32) mEq/L Anion Gap 9.9 (5-15) BUN 6 L (7-18) mg/dL Creatinine 0.8 (0.7-1.3) mg/dL Est Cr Clr Drug Dosing 87.88 mL/min Estimated GFR (MDRD) > 60 (>60) mL/min BUN/Creatinine Ratio 7.5 L (14-18) Glucose 145 H (80-115) mg/dL POC Glucose (80-115) mg/dL Calcium 8.0 L (8.5-10.1) mg/dL Magnesium 1.3 L (1.8-2.4) mg/dl 10/29/16 10/29/16 10/29/16 Range/Units 07:22 11:17 22:12 WBC (4.23-9.07) K/mm3 RBC (4.63-6.08) M/mm3 Hgb (13.7-17.5) gm/L Hct (40.1-51.0) % MCV (79.0-92.2) fl MCH (25.7-32.2) pg MCHC (32.2-35.5) g/dl RDW Std Deviation (35.1-43.9) fL Plt Count (163-337) K/mm3 MPV (9.4-12.3) fl Neut % (Auto) (34.0-67.9) % Lymph % (Auto) (21.8-53.1) % [place] % (Auto) (5.3-12.2) % Eos % (Auto) (0.8-7.0) Baso % (Auto) (0.1-1.2) % Neut # (Auto) (1.78-5.38) K/mm3 Lymph # (Auto) (1.32-3.57) K/mm3 [place] # (Auto) (0.30-0.82) K/mm3 Eos # (Auto) (0.04-0.54) K/mm3 Baso # (Auto) (0.01-0.08) K/mm3 Sodium (136-145) mEq/L Potassium (3.5-5.1) mEq/L Chloride (98-107) mEq/L Carbon Dioxide (21-32) mEq/L Anion Gap (5-15) BUN (7-18) mg/dL Creatinine (0.7-1.3) mg/dL Est Cr Clr Drug Dosing mL/min Estimated GFR (MDRD) (>60) mL/min BUN/Creatinine Ratio (14-18) Glucose (80-115) mg/dL POC Glucose 143 H 137 H 155 H (80-115) mg/dL Calcium (8.5-10.1) mg/dL Magnesium (1.8-2.4) mg/dl 10/29/16 Range/Units 22:16 WBC (4.23-9.07) K/mm3 RBC (4.63-6.08) M/mm3 Hgb 9.4 L (13.7-17.5) gm/L Hct (40.1-51.0) % MCV (79.0-92.2) fl MCH (25.7-32.2) pg MCHC (32.2-35.5) g/dl RDW Std Deviation (35.1-43.9) fL Plt Count (163-337) K/mm3 MPV (9.4-12.3) fl Neut % (Auto) (34.0-67.9) % Lymph % (Auto) (21.8-53.1) % [place] % (Auto) (5.3-12.2) % Eos % (Auto) (0.8-7.0) Baso % (Auto) (0.1-1.2) % Neut # (Auto) (1.78-5.38) K/mm3 Lymph # (Auto) (1.32-3.57) K/mm3 [place] # (Auto) (0.30-0.82) K/mm3 Eos # (Auto) (0.04-0.54) K/mm3 Baso # (Auto) (0.01-0.08) K/mm3 Sodium (136-145) mEq/L Potassium (3.5-5.1) mEq/L Chloride (98-107) mEq/L Carbon Dioxide (21-32) mEq/L Anion Gap (5-15) BUN (7-18) mg/dL Creatinine (0.7-1.3) mg/dL Est Cr Clr Drug Dosing mL/min Estimated GFR (MDRD) (>60) mL/min BUN/Creatinine Ratio (14-18) Glucose (80-115) mg/dL POC Glucose (80-115) mg/dL Calcium (8.5-10.1) mg/dL Magnesium (1.8-2.4) mg/dl Med Orders - Current: Current Medications Dextrose/Water (Dextrose 50% In Water) 50 ml IVPUSH ASDIRECTED PRN PRN Reason: Hypoglycemia Sodium Chloride (Normal Saline) 1,000 mls @ 75 mls/hr IV ASDIRECTED [facility] Last Admin: 10/29/16 17:19 Dose: 75 mls/hr Magnesium Sulfate 2 gm/ Premix 50 mls @ 25 mls/hr IV ONETIME ONE Stop: 10/30/16 09:59 Insulin Aspart (Novolog) 0 unit SUBCUT QIDACANDBED [facility] PRN Reason: Protocol Last Admin: 10/29/16 22:17 Dose: 1 unit Lisinopril (Prinivil) 5 mg PO DAILY [facility] Metoprolol Succinate (Toprol Xl) 25 mg PO DAILY [facility] Last Admin: 10/29/16 09:14 Dose: Not Given Pantoprazole Sodium (Protonix) 40 mg PO BIDAC [facility] Last Admin: 10/29/16 17:15 Dose: 40 mg Rosuvastatin Calcium (Crestor) 20 mg PO BEDTIME [facility] Last Admin: 10/29/16 20:00 Dose: 20 mg Discontinued Medications Diatrizoate Meglum/Diatrizoate Sod (Gastrografin 37%) 90 ml PO ONETIME ONE Stop: 10/27/16 18:51 Last Admin: 10/27/16 17:50 Dose: 90 ml Fentanyl (Sublimaze) Confirm Administered Dose 100 mcg .ROUTE .STK-MED ONE Stop: 10/29/16 08:45 Fentanyl (Sublimaze) Confirm Administered Dose 100 mcg .ROUTE .STK-MED ONE Stop: 10/29/16 21:42 Sodium Chloride (Normal Saline) 1,000 mls @ 250 mls/hr IV ASDIRECTED [facility] Last Infusion: 10/28/16 20:45 Dose: 75 mls/hr Pantoprazole Sodium 80 mg/ (Sodium Chloride) 100 mls @ 10 mls/hr IV Q10H [facility] Last Admin: 10/29/16 07:28 Dose: 10 mls/hr Lidocaine HCl (Xylocaine-Mpf 1%) Confirm Administered Dose 4 mls @ as directed .ROUTE .STK-MED ONE Stop: 10/29/16 08:44 Magnesium Sulfate 2 gm/ Premix 50 mls @ 25 mls/hr IV ONETIME ONE Stop: 10/29/16 15:32 Last Admin: 10/29/16 14:36 Dose: 25 mls/hr Lidocaine HCl (Xylocaine-Mpf 1%) Confirm Administered Dose 4 mls @ as directed .ROUTE .STK-MED ONE Stop: 10/29/16 21:41 Iopamidol (Isovue-300 (61%)) 125 ml IVPUSH ONETIME ONE Stop: 10/27/16 18:51 Last Admin: 10/27/16 19:00 Dose: 125 ml Lidocaine HCl (Xylocaine 2% Jelly) 10 ml MUCMEM ONETIME ONE Stop: 10/27/16 16:13 Last Admin: 10/27/16 16:26 Dose: 10 ml Midazolam HCl (Versed 1 Mg/Ml) Confirm Administered Dose 2 mg .ROUTE .STK-MED ONE Stop: 10/29/16 09:41 Midazolam HCl (Versed 1 Mg/Ml) Confirm Administered Dose 2 mg .ROUTE .STK-MED ONE Stop: 10/29/16 22:05 Pantoprazole Sodium (Protonix Iv) 40 mg IVPUSH Q12H [facility] Last Admin: 10/28/16 09:13 Dose: 40 mg Polyethylene Glycol/Electrolytes (Golytely) 4,000 ml PO ONETIME ONE Stop: 10/28/16 07:59 Last Admin: 10/28/16 17:36 Dose: 4 liter Propofol (Diprivan 20 Ml) Confirm Administered Dose 200 mg .ROUTE .STK-MED ONE Stop: 10/29/16 08:44 Propofol (Diprivan 20 Ml) Confirm Administered Dose 200 mg .ROUTE .STK-MED ONE Stop: 10/29/16 21:42 - Exam Quality Assessment: Reports: Supplemental Oxygen, DVT Prophylaxis General: Reports: Alert, Oriented, Cooperative, No Acute Distress HEENT: Reports: Pupils Equal, Pupils Reactive, EOMI Neck: Reports: Supple, Trachea Midline Lungs: Reports: Normal Respiratory Effort Cardiovascular: Reports: Regular Rate, Regular Rhythm GI/Abdominal Exam: Normal Bowel Sounds, Soft, Non-Tender, No Distention (Male) Exam: Deferred Rectal (Males) Exam: Deferred Back Exam: Reports: Normal Inspection Extremities: Normal Inspection Skin: Reports: Warm Neurological: Reports: No New Focal Deficit Psy/Mental Status: Reports: Alert, Normal Affect, Normal Mood *Q Meaningful Use (DIS) - VTE *Q VTE Criteria *Q: - Stroke *Q Stroke Criteria *Q: - AMI *Q AMI Criteria *Q:
[2016-10-29] MEDS ORDERED: Sodium Chloride 0.9% 1,000 ML IV SCH (23:30)
[2016-10-30] MEDS ORDERED: Magnesium Sulfate/Water 2 GM in Premix Bag 1 BAG IV ONE (08:00)
[2016-10-30] MEDS ORDERED: Lisinopril 5 MG Tab PO SCH (09:00)
== END 2016-10-29 23:40 | DRG 378 ==
LOC: JD.ED 15:31 → JD.ICU 19:23 → JD.MS 10-29 18:50
PROVIDERS: ADMIT Internal Medicine Cardiovascular Disease; ATTEND Internal Medicine Cardiovascular Disease
PROC: 0DBK8ZX Excision of Ascending Colon, Via Natural or Artificial Opening Endoscopic, Diagnostic (ICD-10-PCS; principal; 2016-10-29)
PROC: 0DBP8ZX Excision of Rectum, Via Natural or Artificial Opening Endoscopic, Diagnostic (ICD-10-PCS; 2016-10-29)
PROC: 0DJ08ZZ Inspection of Upper Intestinal Tract, Via Natural or Artificial Opening Endoscopic (ICD-10-PCS; 2016-10-29)
PROC: 30233N1 Transfusion of Nonautologous Red Blood Cells into Peripheral Vein, Percutaneous Approach (ICD-10-PCS; 2016-10-29)
DX: K92.1 Melena (principal); I25.810 Atherosclerosis of coronary artery bypass graft(s) without angina pectoris; D64.9 Anemia, unspecified; R53.1 Weakness; K22.8 Other specified diseases of esophagus; K64.8 Other hemorrhoids; K57.30 Diverticulosis of large intestine without perforation or abscess without bleeding; E11.9 Type 2 diabetes mellitus without complications; Z79.84 Long term (current) use of oral hypoglycemic drugs; I10 Essential (primary) hypertension; I25.2 Old myocardial infarction; E78.00 Pure hypercholesterolemia, unspecified; J44.9 Chronic obstructive pulmonary disease, unspecified; N40.0 Benign prostatic hyperplasia without lower urinary tract symptoms; G89.29 Other chronic pain; M54.9 Dorsalgia, unspecified; M17.0 Bilateral primary osteoarthritis of knee; Z86.010 Personal history of colon polyps; Z88.8 Allergy status to other drugs, medicaments and biological substances; Z79.82 Long term (current) use of aspirin; Z79.899 Other long term (current) drug therapy
CPT/HCPCS: 00740; 00810; 36415; 36430; 45300; 74177; 74177-26; 80048; 80053; 80061; 82270; 82378; 82962; 83036; 83735; 84484; 85018; 85025; 85610; 85730; 86304; 86850; 86900; 86901; 86922; 88305; 96360; 96361; 97161-GP; 97165-GO; 99285-25; A9270-GY; C9113; J1815-GY; J2250; J2704; J3010; J3475; J7030; J7040; P9016; Q9963; Q9967

== ENCOUNTER 2016-12-27 06:07 | Inpatient (IN) | payer OTHER, MEDICARE ==
[~2016-12-27 06:07] MED LIST: Iodine/Sodium Iodide 2% Tincture 30 ML Bottle ONE; Lactated Ringers 1,000 ML IV SCH; Lidocaine 1%/Sod Bicarbonate in NS 8.4% 1 ML Syringe IV PRN; Scopolamine 1.5 MG Transdermal Patch TRDERM ONE; Sodium Chloride 0.9% 10 ML Syringe FLUSH PRN; ceFAZolin 1 GM Vial ONE
--- NOTE | 2016-12-27 07:00 | PCM.PREANE ---
Preanesthetic Assessment - Anesthesia/Transfusion/Family Hx Anesthesia History: Prior Anesthesia Without Reaction Family History of Anesthesia Reaction: No Transfusion History: Prior Transfusion Without Reaction - Review of Systems General: No Symptoms Pulmonary: No Symptoms Cardiovascular: Dyspnea on Exertion Gastrointestinal: No Symptoms Neurological: Numbness (feet) Other: Reports: Easy Bleeding, Easy Bruising, Diabetes (187 this am) - Physical Assessment NPO Status Date: 12/26/16 NPO Status Time: 00:00 Pulse: 77 O2 Sat by Pulse Oximetry: 92 Respiratory Rate: 16 Blood Pressure: 133/92 Temperature: 36.8 C Height: 1.73 m Weight: 107.955 kg ASA Class: 2 Mental Status: Alert & Oriented x3 Airway Class: Mallampati = 2 Dentition: Reports: Broken Tooth/Teeth, Caries Thyro-Mental Finger Breadths: 2 Mouth Opening Finger Breadths: 2 ROM/Head Extension: Full Lungs: Clear to Auscultation, Normal Respiratory Effort Cardiovascular: Regular Rate, Regular Rhythm - Lab Values: Laboratory Last Values WBC 10.41 K/mm3 (4.23-9.07) H 12/27/16 06:19 RBC 5.67 M/mm3 (4.63-6.08) 12/27/16 06:19 Hgb 14.2 gm/L (13.7-17.5) 12/27/16 06:19 Hct 44.8 % (40.1-51.0) 12/27/16 06:19 MCV 79.0 fl (79.0-92.2) 12/27/16 06:19 MCH 25.0 pg (25.7-32.2) L 12/27/16 06:19 MCHC 31.7 g/dl (32.2-35.5) L 12/27/16 06:19 RDW Std Deviation 45.1 fL (35.1-43.9) H 12/27/16 06:19 Plt Count 280 K/mm3 (163-337) 12/27/16 06:19 MPV 10.0 fl (9.4-12.3) 12/27/16 06:19 Neut % (Auto) 74.1 % (34.0-67.9) H 12/27/16 06:19 Lymph % (Auto) 13.2 % (21.8-53.1) L 12/27/16 06:19 [place] % (Auto) 9.2 % (5.3-12.2) 12/27/16 06:19 Eos % (Auto) 2.8 (0.8-7.0) 12/27/16 06:19 Baso % (Auto) 0.3 % (0.1-1.2) 12/27/16 06:19 Neut # (Auto) 7.72 K/mm3 (1.78-5.38) H 12/27/16 06:19 Lymph # (Auto) 1.37 K/mm3 (1.32-3.57) 12/27/16 06:19 [place] # (Auto) 0.96 K/mm3 (0.30-0.82) H 12/27/16 06:19 Eos # (Auto) 0.29 K/mm3 (0.04-0.54) 12/27/16 06:19 Baso # (Auto) 0.03 K/mm3 (0.01-0.08) 12/27/16 06:19 POC Glucose 187 mg/dL (80-115) H 12/27/16 06:37 MRSA (PCR) Negative 12/14/16 16:27 - Imaging/EKG Impressions: EKG SR on chart see chart - Allergies Allergies/Adverse Reactions: Allergies Allergy/AdvReac Type Severity Reaction Status Date / Time celecoxib [From Celebrex] AdvReac Indigestion Verified 12/24/16 09:47 - Anesthesia Plan Pre-Op Medication Ordered: Beta Fausto Beta Fausto: Metoprolol Med Last Dose Date: 12/26/16 Med Last Dose Time: 20:00 - Acknowledgements Anesthesia Type Planned: Spinal Pt an Appropriate Candidate for the Planned Anesthesia: Yes Alternatives and Risks of Anesthesia Discussed w Pt/Guardian: Yes Pt/Guardian Understands and Agrees with Anesthesia Plan: Yes PreAnesthesia Questionnaire HEENT History: Reports: Hard of Hearing, Impaired Vision, Other (See Below) Other HEENT History: benign paroxysmal postional nystagmus, wears glasses Cardiovascular History: Reports: Bypass, CAD, High Cholesterol, Hypertension, [place] , SOB on Exertion Respiratory History: Reports: COPD, Sleep Apnea, Other (See Below) Other Respiratory History: interstitial lung disease, use of CPAP Gastrointestinal History: Reports: GI Bleed, Other (See Below) Other Gastrointestinal History: non alcoholic fatty liver disease Genitourinary History: Reports: None, BPH [employer] History: Reports: None Musculoskeletal History: Reports: Arthritis, Osteoarthritis Neurological History: Reports: Other (See Below) Other Neuro History: dizziness Psychiatric History: Reports: None Endocrine/Metabolic History: Reports: Diabetes, Type II Hematologic History: Reports: None Immunologic History: Reports: None Oncologic (Cancer) History: Reports: None Dermatologic History: Reports: None - Past Surgical History Head Surgeries/Procedures: Reports: None HEENT Surgical History: Reports: Tonsillectomy, Other (See Below) Cardiovascular Surgical History: Reports: Coronary Artery Bypass Respiratory Surgical History: Reports: None GI Surgical History: Reports: Colonoscopy, EGD Female Surgical History: Reports: None Male Surgical History: Reports: None Endocrine Surgical History: Reports: None Neurological Surgical History: Reports: None Musculoskeletal Surgical History: Reports: Arthroscopic Knee Oncologic Surgical History: Reports: None Dermatological Surgical History: Reports: None - SUBSTANCE USE Smoking Status *Q: Former Smoker Tobacco Use Within Last Twelve Months: No Second Hand Smoke Exposure: No Days Per Week of Alcohol Use: 0 Recreational Drug Use History: No - HOME MEDS Home Medications: Home Meds Metoprolol Succinate [Toprol XL 50mg] 50 mg PO DAILY 02/23/16 [History] atorvaSTATin [Lipitor] 40 mg PO BEDTIME 02/23/16 [History] Aspirin [Ecotrin] 81 mg PO DAILY 12/26/16 [History] Cyanocobalamin/FA/Pyridoxine [Folbic] 1 tab PO DAILY 12/26/16 [History] Dapagliflozin Propanediol [Farxiga] 5 mg PO DAILY 12/26/16 [History] Exenatide Microspheres [Bydureon] 2 mg SQ Q14D 12/26/16 [History] Ferrous Sulfate [Iron] 325 mg PO DAILY 12/26/16 [History] Gluc Gilliam Dipo Ch/Tigre Gilliam/C/Kurt [Glucosamine Chondroitin Caplet] 1 tab PO DAILY 12/26/16 [History] Lisinopril [Lisinopril] 5 mg PO DAILY 12/26/16 [History] Meclizine HCl 25 mg PO QID PRN 12/26/16 [History] Multivitamin with Minerals [Multiple Vitamin] 1 tab PO DAILY 12/26/16 [History] [place]-3/DHA/Epa/Fish Oil [Fish Oil 1,000 mg Softgel] 1,000 mg PO DAILY 12/26/16 [History] Pantoprazole Sodium [Protonix] 40 mg PO BID 12/26/16 [History] glipiZIDE [Glipizide ER] 2.5 mg PO DAILY 12/26/16 [History] metFORMIN HCl [Metformin HCl] 1,000 mg PO BID 12/26/16 [History] - CURRENT (IN HOUSE) MEDS Current Meds: Current Medications Lactated Ringer's (Ringers, Lactated) 1,000 mls @ 125 mls/hr IV ASDIRECTED JERONIMO Lidocaine/Sodium Bicarbonate (Buffered Lidocaine 1% In Ns 8.4%) 0.25 ml IV ONETIME PRN PRN Reason: Prior to IV Start Sodium Chloride (Saline Flush) 10 ml FLUSH ASDIRECTED PRN PRN Reason: Keep Vein Open Discontinued Medications Bupivacaine HCl (Marcaine 0.25%) Confirm Administered Dose 30 ml .ROUTE .STK- MED ONE Stop: 12/27/16 06:06 Cefazolin Sodium (Ancef) Confirm Administered Dose 2 gm .ROUTE .STK-MED ONE Stop: 12/27/16 06:06 Iodine (Iodine 2% Mild Tincture) Confirm Administered Dose 30 ml .ROUTE .STK- MED ONE Stop: 12/27/16 06:06 Scopolamine (Transderm-Scop) 1.5 mg TRDERM Q72H ONE Stop: 12/27/16 00:01 Tranexamic Acid (Cyklokapron) Confirm Administered Dose 1,000 mg .ROUTE .STK- MED ONE Stop: 12/27/16 06:06
[2016-12-27] MEDS ORDERED: Scopolamine 1.5 MG Transdermal Patch TRDERM ONE (07:15)
[2016-12-27] MEDS ORDERED: Midazolam 1 MG/ML 2 ML SDV ONE (07:28)
[2016-12-27] MEDS ORDERED: ceFAZolin 1 GM Vial ONE (07:28)
[2016-12-27] MEDS ORDERED: Morphine PF 10 MG/10 ML SDV ONE (07:28)
[2016-12-27] MEDS ORDERED: fentaNYL 100 MCG/2 ML SDV ONE (07:29)
[2016-12-27] MEDS ORDERED: Propofol 200 MG/20 ML SDV ONE ×3 (07:29→08:42)
[2016-12-27] MEDS ORDERED: Bisacodyl 5 MG Tab PO PRN (08:00)
[2016-12-27] MEDS ORDERED: Magnesium Hydroxide 400 MG/5 ML Susp 30 ML Cup PO PRN (08:00)
[2016-12-27] MEDS ORDERED: Sennosides 8.6 MG Tab PO PRN (08:00)
[2016-12-27] MEDS ORDERED: Phenylephrine 1% 10 MG/ML SDV ONE (08:17)
[2016-12-27] MEDS ORDERED: Lactated Ringers 1,000 ML ONE ×2 (08:19→08:45)
[2016-12-27] MEDS: Bupivacaine 0.25% 30 ML SDV ONE ×2 (08:33→08:39)
[2016-12-27] MEDS: Morphine 8 MG, EPINEPHrine 0.3 MG, Cefuroxime 750 MG, Ketorolac 30 MG, Sodium Chloride ... ONE ×10 (08:36→08:37)
[2016-12-27] MEDS ORDERED: diphenhydrAMINE 50 MG/ML SDV IVPUSH PRN (09:27)
[2016-12-27] MEDS ORDERED: fentaNYL 100 MCG/2 ML SDV IVPUSH PRN (09:27)
--- NOTE | 2016-12-27 09:29 | PCM.POSTAN ---
POST ANESTHESIA ASSESSMENT - MENTAL STATUS Mental Status: Alert, Oriented - VITAL SIGNS Pulse Rate: 95 SaO2: 90 Resp Rate: 11 Blood Pressure: 105/59 Temperature: 36.9 C - RESPIRATORY Respiratory Status: Respiratory Rate WNL, Airway Patent, O2 Saturation Stable, Supplemental Oxygen - CARDIOVASCULAR CV Status: Pulse Rate WNL, Blood Pressure Stable - GASTROINTESTINAL GI Status: No Symptoms - PAIN Pain Score: 0 - POST OP HYDRATION Hydration Status: Adequate & Stable - OBSERVATIONS Free Text/Narrative:: no anesthesia complications noted
[2016-12-27] MEDS ORDERED: EXENATIDE MICROSPHERES 2 MG SQ SCH (10:15)
--- NOTE | 2016-12-27 10:56 | CR ---
Right knee: AP and lateral views of the right knee were obtained. Comparison: Previous right knee study of 11/13/10. Recently placed right knee prosthesis is seen. Components are aligned. Underlying bony structures are intact. Soft tissue air is noted from the surgical procedure. Impression: 1. Satisfactory radiographic appearance of recently placed right knee prosthesis. Diagnostic code #2
[2016-12-27] MEDS ORDERED: Vancomycin 1 GM SDV ONE (11:00)
[2016-12-27] MEDS ORDERED: diphenhydrAMINE 50 MG/ML SDV IVPUSH ONE (11:38)
[2016-12-27] MEDS ORDERED: Famotidine 20 MG/2 ML SDV IVPUSH ONE (11:39)
--- NOTE | 2016-12-27 13:56 | PCM.CONSN ---
- General Info Date of Service: 12/27/16 Admission Dx/Problem (Free Text): Shaka is a 66yo male s/p Rt TKA with Dr. Meyers this morning. Pain is under good control at present. He has itching, most spefically around nose; oxygen is irritating to him. He has gotten 25mg IVP benadryl x 2 and now pepcid 20mg IVP x 1 with some improvements. Baez cath is in place. He otherwise has no concerns, resting comfortably in bed. PMH is significant for CAD s/p PCI and CABG, recent GI bleed 1-2 months ago ( will be on eliquis due to this as discussed with Ortho this morning), Anemia with preop hgb of 13.3, DM type 2 with A1C preoperatively of 6.7, HLD and HTN under good control, interstitial lung disease, RAINER will have home CPAP. Hospitalist service is consulted for postoperative management of medical conditions. PCP is Tasneem Green PA-C in [place] He is Full Code status. Functional Status: Reports: Pain Controlled (denies c/o knee pain at this time) , Urinating (baez ), Incentive Spirometry. Denies: Ambulating (not yet) - Review of Systems General: Reports: No Symptoms. Denies: Fever HEENT: Reports: No Symptoms Pulmonary: Reports: No Symptoms. Denies: Shortness of Breath, Cough Cardiovascular: Reports: No Symptoms. Denies: Chest Pain Gastrointestinal: Reports: No Symptoms. Denies: Abdominal Pain Musculoskeletal: Reports: Leg Pain (rt knee, minimally painful at present) Neurological: Reports: No Symptoms Psychiatric: Reports: No Symptoms - Patient Data Vitals - Most Recent: Last Vital Signs Temp 97.3 F 12/27/16 10:51 Pulse 77 12/27/16 10:21 Resp 20 12/27/16 10:21 BP 117/69 12/27/16 12:15 Pulse Ox 92 L 12/27/16 12:07 Weight - Most Recent: 238 lb I&O - Last 24 Hours: Intake & Output 12/26/16 12/27/16 12/27/16 22:59 06:59 14:59 Intake Total 250 Output Total 500 Balance -250 Lab Results Last 24 Hours: Laboratory Results - last 24 hr 12/27/16 12/27/16 Range/Units 06:19 06:37 WBC 10.41 H (4.23-9.07) K/mm3 RBC 5.67 (4.63-6.08) M/mm3 Hgb 14.2 (13.7-17.5) gm/L Hct 44.8 (40.1-51.0) % MCV 79.0 (79.0-92.2) fl MCH 25.0 L (25.7-32.2) pg MCHC 31.7 L (32.2-35.5) g/dl RDW Std Deviation 45.1 H (35.1-43.9) fL Plt Count 280 (163-337) K/mm3 MPV 10.0 (9.4-12.3) fl Neut % (Auto) 74.1 H (34.0-67.9) % Lymph % (Auto) 13.2 L (21.8-53.1) % [place] % (Auto) 9.2 (5.3-12.2) % Eos % (Auto) 2.8 (0.8-7.0) Baso % (Auto) 0.3 (0.1-1.2) % Neut # (Auto) 7.72 H (1.78-5.38) K/mm3 Lymph # (Auto) 1.37 (1.32-3.57) K/mm3 [place] # (Auto) 0.96 H (0.30-0.82) K/mm3 Eos # (Auto) 0.29 (0.04-0.54) K/mm3 Baso # (Auto) 0.03 (0.01-0.08) K/mm3 POC Glucose 187 H (80-115) mg/dL Med Orders - Current: Current Medications Apixaban (Eliquis) 2.5 mg PO Q12H JERONIMO Aspirin (Halfprin) 81 mg PO DAILY JERONIMO Bisacodyl (Dulcolax) 5 mg PO DAILY PRN PRN Reason: Constipation Diphenhydramine HCl (Benadryl) 25 mg IVPUSH Q4H PRN PRN Reason: Nausea Diphenhydramine HCl (Benadryl) 25 mg IVPUSH Q6H PRN PRN Reason: Itching Stop: 12/27/16 18:00 Last Admin: 12/27/16 10:54 Dose: 25 mg Docusate Sodium (Colace) 100 mg PO BID [facility] Ferrous Sulfate (Ferrous Sulfate) 325 mg PO DAILY [facility] Glipizide (Glucotrol Xl) 2.5 mg PO DAILY [facility] Cefazolin Sodium/Dextrose 2 gm (/ Premix) 50 mls @ 100 mls/hr IV Q8H [facility] Stop: 12/28/16 07:59 Insulin Aspart (Novolog) 0 unit SUBCUT QIDACANDBED [facility] PRN Reason: Protocol Lisinopril (Prinivil) 5 mg PO DAILY [facility] Magnesium Hydroxide (Milk Of Magnesia) 30 ml PO BID PRN PRN Reason: Constipation Meclizine HCl (Antivert) 25 mg PO QID PRN PRN Reason: Dizziness Metoprolol Succinate (Toprol Xl) 50 mg PO DAILY [facility] Morphine Sulfate (Morphine) 2 mg IVPUSH Q2H PRN PRN Reason: Breakthrough Pain Multivitamins (Thera) 1 each PO DAILY [facility] Ondansetron HCl (Zofran) 4 mg IVPUSH Q6H PRN PRN Reason: Nausea/Vomiting Oxycodone/Acetaminophen (Percocet 325-5 Mg) 1 - 2 tab PO Q4H PRN PRN Reason: Pain Pantoprazole Sodium (Protonix) 40 mg PO BID [facility] Dapagliflozin Propanediol [Farxiga ] 5 Mg 0 each PO DAILY [facility] Rosuvastatin Calcium (Crestor) 10 mg PO BEDTIME [facility] Senna (Senna) 8.6 mg PO BID PRN PRN Reason: Constipation Sodium Chloride (Saline Flush) 10 ml FLUSH ASDIRECTED PRN PRN Reason: Keep Vein Open Discontinued Medications Bupivacaine HCl (Marcaine 0.25%) Confirm Administered Dose 30 ml .ROUTE .STK- MED ONE Stop: 12/27/16 06:06 Last Admin: 12/27/16 08:39 Dose: 30 ml Cefazolin Sodium (Ancef) Confirm Administered Dose 2 gm .ROUTE .STK-MED ONE Stop: 12/27/16 06:06 Cefazolin Sodium (Ancef) Confirm Administered Dose 2 gm .ROUTE .STK-MED ONE Stop: 12/27/16 07:29 Last Admin: 12/27/16 08:32 Dose: 2 gm Morphine Sulfate 8 mg/Epinephrine HCl 0.3 mg/Cefuroxime Sodium 750 mg/Ketorolac Tromethamine 30 mg/Sodium Chloride 27.9 ml 0 mg .XX ONETIME ONE Stop: 12/27/16 07:46 Last Admin: 12/27/16 08:37 Dose: 788.3 mg Diphenhydramine HCl (Benadryl) 25 mg IVPUSH ONETIME ONE Stop: 12/27/16 11:39 Last Admin: 12/27/16 11:47 Dose: 25 mg Famotidine (Pepcid) 20 mg PO BID [facility] Famotidine (Pepcid) 20 mg IVPUSH ONETIME ONE Stop: 12/27/16 11:40 Last Admin: 12/27/16 11:46 Dose: 20 mg Fentanyl (Sublimaze) Confirm Administered Dose 100 mcg .ROUTE .STK-MED ONE Stop: 12/27/16 07:30 Fentanyl (Sublimaze) 50 mcg IVPUSH Q5M PRN PRN Reason: PAIN Stop: 12/27/16 18:00 Lactated Ringer's (Ringers, Lactated) 1,000 mls @ 125 mls/hr IV ASDIRECTED [facility] Last Admin: 12/27/16 06:15 Dose: 125 mls/hr Lactated Ringer's (Ringers, Lactated) Confirm Administered Dose 1,000 mls @ as directed .ROUTE .STK-MED ONE Stop: 12/27/16 08:20 Lactated Ringer's (Ringers, Lactated) Confirm Administered Dose 1,000 mls @ as directed .ROUTE .STK-MED ONE Stop: 12/27/16 08:46 Iodine (Iodine 2% Mild Tincture) Confirm Administered Dose 30 ml .ROUTE .STK- MED ONE Stop: 12/27/16 06:06 Last Admin: 12/27/16 08:28 Dose: 18 ml Lidocaine/Sodium Bicarbonate (Buffered Lidocaine 1% In Ns 8.4%) 0.25 ml IV ONETIME PRN PRN Reason: Prior to IV Start Last Admin: 12/27/16 06:14 Dose: 0.25 ml Metformin HCl (Glucophage) 1,000 mg PO BID [facility] Midazolam HCl (Versed 1 Mg/Ml) Confirm Administered Dose 2 mg .ROUTE .STK-MED ONE Stop: 12/27/16 07:29 Morphine Sulfate (Duramorph Pf) Confirm Administered Dose 10 mg .ROUTE .STK-MED ONE Stop: 12/27/16 07:29 Non-Formulary Medication (Exenatide Microspheres [Bydureon]) 2 mg SQ Q14D JERONIMO Last Admin: 12/27/16 12:57 Dose: Not Given Phenylephrine HCl (Mejia-Synephrine) Confirm Administered Dose 10 mg .ROUTE .STK- MED ONE Stop: 12/27/16 08:18 Propofol (Diprivan 20 Ml) Confirm Administered Dose 200 mg .ROUTE .STK-MED ONE Stop: 12/27/16 07:30 Propofol (Diprivan 20 Ml) Confirm Administered Dose 200 mg .ROUTE .STK-MED ONE Stop: 12/27/16 08:15 Propofol (Diprivan 20 Ml) Confirm Administered Dose 200 mg .ROUTE .STK-MED ONE Stop: 12/27/16 08:43 Scopolamine (Transderm-Scop) 1.5 mg TRDERM Q72H ONE Stop: 12/27/16 00:01 Last Admin: 12/27/16 12:48 Dose: Not Given Scopolamine (Transderm-Scop) 1.5 mg TRDERM Q72H ONE Stop: 12/27/16 07:16 Last Admin: 12/27/16 07:17 Dose: 1.5 mg Tranexamic Acid (Cyklokapron) Confirm Administered Dose 1,000 mg .ROUTE .STK- MED ONE Stop: 12/27/16 06:06 Last Admin: 12/27/16 08:41 Dose: 1,000 mg Vancomycin HCl (Vancomycin) 1 gm .XX ONETIME ONE Stop: 12/27/16 11:01 Last Admin: 12/27/16 08:40 Dose: 1 gm - Exam Quality Assessment: Supplemental Oxygen, DVT Prophylaxis General: Alert, Cooperative, No Acute Distress HEENT: Pupils Equal, EOMI, Mucous Membr. Moist/[place] Neck: Supple, Trachea Midline, No JVD Lungs: Clear to Auscultation, Normal Respiratory Effort, Decreased Breath Sounds (bases) Cardiovascular: Regular Rate, Regular Rhythm GI/Abdominal Exam: Normal Bowel Sounds, Soft, Non-Tender (Male) Exam: Deferred, Other (baez cath draining clear yellow urine) Extremities: No Pedal Edema, Normal Capillary Refill, Other (Teds, SCD's bilat, ice to rt knee) Peripheral Pulses: 2+: Dorsalis Pedis (L), Dorsalis Pedis (R) Skin: Warm, Dry Wound/Incisions: Dressing Dry and Intact Neurological: No New Focal Deficit Psy/Mental Status: Alert, Normal Affect, Normal Mood Consult PN Assessment/Plan POD#: 0 Procedures: Procedures ANTINUCLEAR ANTIBODIES (07/08/14) ASSAY IGA/IGD/IGG/IGM EACH (07/08/14) ASSAY OF BLOOD LIPOPROTEIN (12/12/14) ASSAY OF CERULOPLASMIN (05/15/14) ASSAY OF FERRITIN (05/15/14) ASSAY OF IRON (05/15/14) ASSAY OF PREALBUMIN (12/15/16) ASSAY OF TRANSFERRIN (05/15/14) C-REACTIVE PROTEIN (05/05/14) CARDIAC REHAB/MONITOR (03/01/16) CHEST X-RAY 2VW FRONTAL&LATL (12/15/16) COMPLETE CBC AUTOMATED (05/07/16) COMPLETE CBC W/AUTO DIFF WBC (05/05/14) COMPREHEN METABOLIC PANEL (05/07/16) DXA BONE DENSITY AXIAL (12/22/16) EMERGENCY DEPT VISIT (05/05/14) GLYCOSYLATED HEMOGLOBIN TEST (05/07/16) HEP B SURFACE ANTIBODY (05/15/14) HEPATIC FUNCTION PANEL (05/15/14) HEPATITIS B SURFACE AG IA (05/15/14) HEPATITIS C AB TEST (05/15/14) IMMUNOASSAY NONANTIBODY (05/15/14) INFLUENZA ASSAY W/OPTIC (05/05/14) MICROALBUMIN QUANTITATIVE (05/07/16) PROTHROMBIN TIME (12/15/16) ROUTINE VENIPUNCTURE (05/07/16) THROMBOPLASTIN TIME PARTIAL (12/15/16) (1) S/P total knee arthroplasty SNOMED Code(s): 3155486987098, 5866365803178 Code(s): Z96.659 - PRESENCE OF UNSPECIFIED ARTIFICIAL KNEE JOINT Priority: High Current Visit: Yes Qualifiers: Laterality: right Qualified Code(s): Z96.651 - Presence of right artificial knee joint (2) Osteoarthritis SNOMED Code(s): 067379089 Code(s): M19.90 - UNSPECIFIED OSTEOARTHRITIS, UNSPECIFIED SITE Priority: High Current Visit: Yes Qualifiers: Osteoarthritis location: knee Osteoarthritis type: primary Laterality: right Qualified Code(s): M17.11 - Unilateral primary osteoarthritis, right knee (3) Hx of gastrointestinal hemorrhage SNOMED Code(s): 979627674 Code(s): Z87.19 - PERSONAL HISTORY OF OTHER DISEASES OF THE DIGESTIVE SYSTEM Priority: High Current Visit: No (4) HLD (hyperlipidemia) SNOMED Code(s): 48819644 Code(s): E78.5 - HYPERLIPIDEMIA, UNSPECIFIED Priority: Medium Current Visit: No Qualifiers: Hyperlipidemia type: unspecified Qualified Code(s): E78.5 - Hyperlipidemia , unspecified (5) RAINER on CPAP SNOMED Code(s): 35560927 Code(s): G47.33 - OBSTRUCTIVE SLEEP APNEA (ADULT) (PEDIATRIC); Z99.89 - DEPENDENCE ON OTHER ENABLING MACHINES AND DEVICES Priority: Medium Current Visit: No (6) Interstitial lung disease SNOMED Code(s): 930433737 Code(s): J84.9 - INTERSTITIAL PULMONARY DISEASE, UNSPECIFIED Priority: Medium Current Visit: No (7) Anemia SNOMED Code(s): 173615621 Code(s): D64.9 - ANEMIA, UNSPECIFIED Priority: Medium Current Visit: Yes Qualifiers: Anemia type: unspecified type Qualified Code(s): D64.9 - Anemia, unspecified (8) CAD (coronary artery disease) of artery bypass graft SNOMED Code(s): 876196523, 788483335, 431718049 Code(s): I25.810 - ATHEROSCLEROSIS OF CABG W/O ANGINA PECTORIS Priority: Medium Current Visit: No (9) Hypertension SNOMED Code(s): 85424718 Code(s): I10 - ESSENTIAL (PRIMARY) HYPERTENSION Priority: Medium Current Visit: No Qualifiers: Hypertension type: unspecified Qualified Code(s): I10 - Essential (primary ) hypertension (10) Type 2 diabetes mellitus SNOMED Code(s): 92175062 Code(s): E11.9 - TYPE 2 DIABETES MELLITUS WITHOUT COMPLICATIONS Priority: Medium Current Visit: Yes Qualifiers: Diabetes mellitus complication status: without complication Diabetes mellitus halfway insulin use: without local company intermodal truck driver use Qualified Code(s): E11.9 - Type 2 diabetes mellitus without complications Problem List Initiated/Reviewed/Updated: Yes My Orders Last 24 Hours: My Active Orders 12/27/16 13:49 Blood Glucose Check, Bedside [RC] QIDACANDBED 12/27/16 14:00 Insulin Aspart [NovoLOG] See Protocol SUBCUT QIDACANDBED 12/27/16 Dinner ADA Diabetic [Citizen [place] Diabetic [employer] Diet] [DIET] 12/28/16 09:00 Cyanocobalamin/FA/Pyridoxine 1 tab PO DAILY [place]-3/DHA/Epa/Fish Oil [Fish Oil 1,000 mg Softgel] 1,000 mg PO DAILY Plan: I/P: S/P Rt TKA with Dr. Meyers, POD #0 -Pain management and DVT prophylax -PT/OT -RT/IS -Preop hgb 13.3, recheck/follow labs Recent GI Bleed within last 1-2 months -Discussed with Ortho, will DC on Eliquis -Follow hgb closely -GI prophylax, cont home PPI at BID Chronic: Cont home meds except hold metformin for DM CAD, S/P PCI and CABG HTN HLD DM: Preop A1C good at 6.7, Hold metformin, Accuchecks and SSI coverage during hospital stay QID/AC and HS. Hx of anemia s/p GI bleed- cont iron supplement Interstitial lung disease- RT and IS postoperatively RAINER with home CPAP Other: PT/OT CM/SW for dc planning- patient expecting to DC home with Follow am labs Patient is Full Code status PCP is Tasneem Green at [facility]
[2016-12-27] MEDS: ceFAZolin 2 GM in Premix Bag 1 BAG IV SCH ×2 (15:21→22:57)
[2016-12-27] MEDS: Insulin Aspart 100 Units/ML 3 ML Pen SUBCUT SCH ×3 (15:38→22:54)
[2016-12-27] MEDS: Ondansetron 4 MG/2 ML SDV IVPUSH PRN (17:25)
[2016-12-27] MEDS ORDERED: metFORMIN 500 MG Tab PO SCH (21:00)
[2016-12-27] MEDS ORDERED: Famotidine 20 MG Tab PO SCH (21:00)
[2016-12-27] MEDS: Docusate Sodium 100 MG Cap PO SCH (21:04)
[2016-12-27] MEDS: Rosuvastatin 10 MG Tab PO SCH (21:05)
[2016-12-27] MEDS: Pantoprazole 40 MG Tab.CR PO SCH (21:06)
[2016-12-27] MEDS: Acetaminophen/oxyCODONE 325-5 MG Tab PO PRN ×2 (21:07→22:52)
[2016-12-27] MEDS: diphenhydrAMINE 50 MG/ML SDV IVPUSH PRN (21:11)
[2016-12-27] MEDS ORDERED: Metoprolol Tartrate 5 MG in Sodium Chloride 0.9% 50 ML IV ONE (21:57)
[2016-12-27] MEDS ORDERED: Metoprolol Tartrate 5 MG/5 ML SDV IVPUSH ONE (22:07)
[2016-12-28] MEDS: diphenhydrAMINE 50 MG/ML SDV IVPUSH PRN ×2 (03:05→23:39)
[2016-12-28] MEDS: Acetaminophen/oxyCODONE 325-5 MG Tab PO PRN ×5 (03:09→21:12)
[2016-12-28] MEDS: Morphine 2 MG/ML Syringe IVPUSH PRN ×2 (07:02→11:17)
[2016-12-28] MEDS: ceFAZolin 2 GM in Premix Bag 1 BAG IV SCH (07:37)
[2016-12-28] MEDS: Ondansetron 4 MG/2 ML SDV IVPUSH PRN (08:12)
[2016-12-28] MEDS: Multivitamins,Therapeutic Tab PO SCH (08:38)
[2016-12-28] MEDS: Apixaban 5 MG Tab PO SCH ×2 (08:38→20:48)
[2016-12-28] MEDS: Docusate Sodium 100 MG Cap PO SCH ×2 (08:39→20:47)
[2016-12-28] MEDS: Aspirin 81 MG Tab.EC PO SCH (08:39)
[2016-12-28] MEDS: glipiZIDE 2.5 MG Tab.ER PO SCH ×2 (08:40→08:56)
[2016-12-28] MEDS: Fish Oil/Omega-3 Fatty Acids 1 Gm Cap PO SCH (08:41)
[2016-12-28] MEDS: Ferrous Sulfate 325 MG Tab PO SCH (08:41)
[2016-12-28] MEDS: Pantoprazole 40 MG Tab.CR PO SCH ×2 (08:41→20:49)
[2016-12-28] MEDS: Metoprolol Succinate 50 MG Tab.ER PO SCH (08:41)
[2016-12-28] MEDS: Lisinopril 5 MG Tab PO SCH (08:43)
[2016-12-28] MEDS: Dapagliflozin Propanediol [Farxiga] 5 MG PO SCH (08:48)
[2016-12-28] MEDS: Insulin Aspart 100 Units/ML 3 ML Pen SUBCUT SCH ×4 (08:56→21:04)
--- NOTE | 2016-12-28 10:39 | PCM.CONSN ---
- General Info Date of Service: 12/28/16 Admission Dx/Problem (Free Text): Shaka is a 66yo male s/p Rt TKA with Dr. Meyers; POD #1 He wore his CPAP last night with 5L of oxygen - on 4L of oxygen now. Pain is increased this morning, he is shaky and diaphoretic when up to bathroom per 's report. Per nursing report he is difficult to redirect and does not like to follow commands unless directed by . He is/was confused overnight by nursing and report. Per states confusion seems to be improving this morning. Nausea and vomiting this morning, unable to keep solid foods down this morning. Antiemetic given this morning. PCP is Tasneem Green PA-C in [place] He is Full Code status. Functional Status: Reports: Pain Controlled (minimally controlled) - Review of Systems General: Reports: Weakness. Denies: Fever HEENT: Reports: No Symptoms Pulmonary: Reports: No Symptoms. Denies: Shortness of Breath, Cough Cardiovascular: Reports: No Symptoms. Denies: Chest Pain, Dyspnea on Exertion Gastrointestinal: Reports: Nausea (see HPI), Vomiting Musculoskeletal: Reports: Leg Pain Neurological: Reports: Confusion (intermittent; seems to be improving this morning per report) - Patient Data Vitals - Most Recent: Last Vital Signs Temp 98.4 F 12/28/16 08:44 Pulse 86 12/28/16 08:44 Resp 16 12/28/16 08:44 BP 143/77 H 12/28/16 08:44 Pulse Ox 96 12/28/16 08:44 Weight - Most Recent: 244 lb 11.2 oz I&O - Last 24 Hours: Intake & Output 12/27/16 12/28/16 12/28/16 22:59 06:59 14:59 Intake Total 1050 1650 Output Total 225 300 Balance 825 1350 Lab Results Last 24 Hours: Laboratory Results - last 24 hr 12/27/16 12/27/16 12/28/16 Range/Units 18:25 21:29 06:45 WBC 12.83 H (4.23-9.07) K/mm3 RBC 4.67 (4.63-6.08) M/mm3 Hgb 11.7 L (13.7-17.5) gm/L Hct 37.5 L (40.1-51.0) % MCV 80.3 (79.0-92.2) fl MCH 25.1 L (25.7-32.2) pg MCHC 31.2 L (32.2-35.5) g/dl RDW Std Deviation 45.2 H (35.1-43.9) fL Plt Count 240 (163-337) K/mm3 MPV 10.7 (9.4-12.3) fl Sodium (136-145) mEq/L Potassium (3.5-5.1) mEq/L Chloride (98-107) mEq/L Carbon Dioxide (21-32) mEq/L Anion Gap (5-15) BUN (7-18) mg/dL Creatinine (0.7-1.3) mg/dL Est Cr Clr Drug Dosing mL/min Estimated GFR (MDRD) (>60) mL/min BUN/Creatinine Ratio (14-18) Glucose (80-115) mg/dL POC Glucose 135 H 153 H (80-115) mg/dL Calcium (8.5-10.1) mg/dL Total Bilirubin (0.2-1.0) mg/dL AST (15-37) U/L ALT (16-63) U/L Alkaline Phosphatase (46-116) U/L Total Protein (6.4-8.2) g/dl Albumin (3.4-5.0) g/dl Globulin gm/dL Albumin/Globulin Ratio (1-2) 12/28/16 12/28/16 Range/Units 06:45 06:47 WBC (4.23-9.07) K/mm3 RBC (4.63-6.08) M/mm3 Hgb (13.7-17.5) gm/L Hct (40.1-51.0) % MCV (79.0-92.2) fl MCH (25.7-32.2) pg MCHC (32.2-35.5) g/dl RDW Std Deviation (35.1-43.9) fL Plt Count (163-337) K/mm3 MPV (9.4-12.3) fl Sodium 136 (136-145) mEq/L Potassium 4.3 (3.5-5.1) mEq/L Chloride 100 (98-107) mEq/L Carbon Dioxide 25 (21-32) mEq/L Anion Gap 15.3 H (5-15) BUN 21 H (7-18) mg/dL Creatinine 1.1 (0.7-1.3) mg/dL Est Cr Clr Drug Dosing 63.91 mL/min Estimated GFR (MDRD) > 60 (>60) mL/min BUN/Creatinine Ratio 19.1 H (14-18) Glucose 210 H (80-115) mg/dL POC Glucose 170 H (80-115) mg/dL Calcium 9.0 (8.5-10.1) mg/dL Total Bilirubin 1.1 H (0.2-1.0) mg/dL AST 29 (15-37) U/L ALT 35 (16-63) U/L Alkaline Phosphatase 68 (46-116) U/L Total Protein 7.2 (6.4-8.2) g/dl Albumin 3.3 L (3.4-5.0) g/dl Globulin 3.9 gm/dL Albumin/Globulin Ratio 0.9 L (1-2) Med Orders - Current: Current Medications Apixaban (Eliquis) 2.5 mg PO Q12H [facility] Last Admin: 12/28/16 08:38 Dose: 2.5 mg Aspirin (Halfprin) 81 mg PO DAILY [facility] Last Admin: 12/28/16 08:39 Dose: 81 mg Bisacodyl (Dulcolax) 5 mg PO DAILY PRN PRN Reason: Constipation Diphenhydramine HCl (Benadryl) 25 mg IVPUSH Q4H PRN PRN Reason: Nausea Last Admin: 12/28/16 03:05 Dose: 25 mg Docusate Sodium (Colace) 100 mg PO BID [facility] Last Admin: 12/28/16 08:39 Dose: 100 mg Ferrous Sulfate (Ferrous Sulfate) 325 mg PO DAILY [facility] Last Admin: 12/28/16 08:41 Dose: 325 mg Fish Oil (Fish Oil) 1 gm PO DAILY [facility] Last Admin: 12/28/16 08:41 Dose: 1 gm Glipizide (Glucotrol Xl) 2.5 mg PO DAILY [facility] Last Admin: 12/28/16 08:56 Dose: Not Given Insulin Aspart (Novolog) 0 unit SUBCUT QIDACANDBED [facility] PRN Reason: Protocol Last Admin: 12/28/16 08:56 Dose: 1 unit Lisinopril (Prinivil) 5 mg PO DAILY [facility] Last Admin: 12/28/16 08:43 Dose: 5 mg Magnesium Hydroxide (Milk Of Magnesia) 30 ml PO BID PRN PRN Reason: Constipation Meclizine HCl (Antivert) 25 mg PO QID PRN PRN Reason: Dizziness Metoprolol Succinate (Toprol Xl) 50 mg PO DAILY [facility] Last Admin: 12/28/16 08:41 Dose: 50 mg Morphine Sulfate (Morphine) 2 mg IVPUSH Q2H PRN PRN Reason: Breakthrough Pain Last Admin: 12/28/16 07:02 Dose: 2 mg Multivitamins (Thera) 1 each PO DAILY [facility] Last Admin: 12/28/16 08:38 Dose: 1 each Ondansetron HCl (Zofran) 4 mg IVPUSH Q6H PRN PRN Reason: Nausea/Vomiting Last Admin: 12/28/16 08:12 Dose: 4 mg Oxycodone/Acetaminophen (Percocet 325-5 Mg) 1 - 2 tab PO Q4H PRN PRN Reason: Pain Last Admin: 12/28/16 08:43 Dose: 2 tab Pantoprazole Sodium (Protonix) 40 mg PO BID [facility] Last Admin: 12/28/16 08:41 Dose: 40 mg Dapagliflozin Propanediol [Farxiga ] 5 Mg 0 each PO DAILY [facility] Last Admin: 12/28/16 08:48 Dose: Not Given Cyanocobalamin/Fa/ (Pyridoxine 1 Tab) 0 each PO DAILY [facility] Rosuvastatin Calcium (Crestor) 10 mg PO BEDTIME [facility] Last Admin: 12/27/16 21:05 Dose: 10 mg Senna (Senna) 8.6 mg PO BID PRN PRN Reason: Constipation Last Admin: 12/28/16 07:05 Dose: 8.6 mg Sodium Chloride (Saline Flush) 10 ml FLUSH ASDIRECTED PRN PRN Reason: Keep Vein Open Discontinued Medications Bupivacaine HCl (Marcaine 0.25%) Confirm Administered Dose 30 ml .ROUTE .STK- MED ONE Stop: 12/27/16 06:06 Last Admin: 12/27/16 08:39 Dose: 30 ml Cefazolin Sodium (Ancef) Confirm Administered Dose 2 gm .ROUTE .STK-MED ONE Stop: 12/27/16 06:06 Cefazolin Sodium (Ancef) Confirm Administered Dose 2 gm .ROUTE .STK-MED ONE Stop: 12/27/16 07:29 Last Admin: 12/27/16 08:32 Dose: 2 gm Morphine Sulfate 8 mg/Epinephrine HCl 0.3 mg/Cefuroxime Sodium 750 mg/Ketorolac Tromethamine 30 mg/Sodium Chloride 27.9 ml 0 mg .XX ONETIME ONE Stop: 12/27/16 07:46 Last Admin: 12/27/16 08:37 Dose: 788.3 mg Diphenhydramine HCl (Benadryl) 25 mg IVPUSH Q6H PRN PRN Reason: Itching Stop: 12/27/16 18:00 Last Admin: 12/27/16 10:54 Dose: 25 mg Diphenhydramine HCl (Benadryl) 25 mg IVPUSH ONETIME ONE Stop: 12/27/16 11:39 Last Admin: 12/27/16 11:47 Dose: 25 mg Famotidine (Pepcid) 20 mg PO BID [facility] Famotidine (Pepcid) 20 mg IVPUSH ONETIME ONE Stop: 12/27/16 11:40 Last Admin: 12/27/16 11:46 Dose: 20 mg Fentanyl (Sublimaze) Confirm Administered Dose 100 mcg .ROUTE .STK-MED ONE Stop: 12/27/16 07:30 Fentanyl (Sublimaze) 50 mcg IVPUSH Q5M PRN PRN Reason: PAIN Stop: 12/27/16 18:00 Lactated Ringer's (Ringers, Lactated) 1,000 mls @ 125 mls/hr IV ASDIRECTED [facility] Last Admin: 12/27/16 06:15 Dose: 125 mls/hr Cefazolin Sodium/Dextrose 2 gm (/ Premix) 50 mls @ 100 mls/hr IV Q8H [facility] Stop: 12/28/16 07:59 Last Admin: 12/28/16 07:37 Dose: 100 mls/hr Lactated Ringer's (Ringers, Lactated) Confirm Administered Dose 1,000 mls @ as directed .ROUTE .STK-MED ONE Stop: 12/27/16 08:20 Lactated Ringer's (Ringers, Lactated) Confirm Administered Dose 1,000 mls @ as directed .ROUTE .STK-MED ONE Stop: 12/27/16 08:46 Iodine (Iodine 2% Mild Tincture) Confirm Administered Dose 30 ml .ROUTE .STK- MED ONE Stop: 12/27/16 06:06 Last Admin: 12/27/16 08:28 Dose: 18 ml Lidocaine/Sodium Bicarbonate (Buffered Lidocaine 1% In Ns 8.4%) 0.25 ml IV ONETIME PRN PRN Reason: Prior to IV Start Last Admin: 12/27/16 06:14 Dose: 0.25 ml Metformin HCl (Glucophage) 1,000 mg PO BID [facility] Metoprolol Tartrate (Lopressor) 5 mg IVPUSH ONETIME ONE Stop: 12/27/16 22:08 Last Admin: 12/27/16 22:33 Dose: 5 mg Midazolam HCl (Versed 1 Mg/Ml) Confirm Administered Dose 2 mg .ROUTE .STK-MED ONE Stop: 12/27/16 07:29 Morphine Sulfate (Duramorph Pf) Confirm Administered Dose 10 mg .ROUTE .STK-MED ONE Stop: 12/27/16 07:29 Non-Formulary Medication (Exenatide Microspheres [Bydureon]) 2 mg SQ Q14D [facility] Last Admin: 12/27/16 12:57 Dose: Not Given Phenylephrine HCl (Mejia-Synephrine) Confirm Administered Dose 10 mg .ROUTE .STK- MED ONE Stop: 12/27/16 08:18 Propofol (Diprivan 20 Ml) Confirm Administered Dose 200 mg .ROUTE .STK-MED ONE Stop: 12/27/16 07:30 Propofol (Diprivan 20 Ml) Confirm Administered Dose 200 mg .ROUTE .STK-MED ONE Stop: 12/27/16 08:15 Propofol (Diprivan 20 Ml) Confirm Administered Dose 200 mg .ROUTE .STK-MED ONE Stop: 12/27/16 08:43 Scopolamine (Transderm-Scop) 1.5 mg TRDERM Q72H ONE Stop: 12/27/16 00:01 Last Admin: 12/27/16 12:48 Dose: Not Given Scopolamine (Transderm-Scop) 1.5 mg TRDERM Q72H ONE Stop: 12/27/16 07:16 Last Admin: 12/27/16 07:17 Dose: 1.5 mg Tranexamic Acid (Cyklokapron) Confirm Administered Dose 1,000 mg .ROUTE .STK- MED ONE Stop: 12/27/16 06:06 Last Admin: 12/27/16 08:41 Dose: 1,000 mg Vancomycin HCl (Vancomycin) 1 gm .XX ONETIME ONE Stop: 12/27/16 11:01 Last Admin: 12/27/16 08:40 Dose: 1 gm - Exam Quality Assessment: Supplemental Oxygen General: Alert, No Acute Distress HEENT: Pupils Equal, EOMI, Mucous Membr. Moist/[place] Neck: Supple Lungs: Clear to Auscultation, Normal Respiratory Effort, Decreased Breath Sounds (bases) Cardiovascular: Regular Rate, Regular Rhythm GI/Abdominal Exam: Normal Bowel Sounds, Soft, Non-Tender (Male) Exam: Deferred Back Exam: Normal Inspection Extremities: Other (Teds/SCD's and ice to knee) Peripheral Pulses: 2+: Dorsalis Pedis (L), Dorsalis Pedis (R) Skin: Warm, Dry Wound/Incisions: Dressing Dry and Intact Neurological: Normal Speech, Normal Tone, Strength Equal Bilateral Psy/Mental Status: Alert Consult PN Assessment/Plan POD#: 1 Procedures: Procedures ANTINUCLEAR ANTIBODIES (07/08/14) ASSAY IGA/IGD/IGG/IGM EACH (07/08/14) ASSAY OF BLOOD LIPOPROTEIN (12/12/14) ASSAY OF CERULOPLASMIN (05/15/14) ASSAY OF FERRITIN (05/15/14) ASSAY OF IRON (05/15/14) ASSAY OF PREALBUMIN (12/15/16) ASSAY OF TRANSFERRIN (05/15/14) C-REACTIVE PROTEIN (05/05/14) CARDIAC REHAB/MONITOR (03/01/16) CHEST X-RAY 2VW FRONTAL&LATL (12/15/16) COMPLETE CBC AUTOMATED (05/07/16) COMPLETE CBC W/AUTO DIFF WBC (05/05/14) COMPREHEN METABOLIC PANEL (05/07/16) DXA BONE DENSITY AXIAL (12/22/16) EMERGENCY DEPT VISIT (05/05/14) GLYCOSYLATED HEMOGLOBIN TEST (05/07/16) HEP B SURFACE ANTIBODY (05/15/14) HEPATIC FUNCTION PANEL (05/15/14) HEPATITIS B SURFACE AG IA (05/15/14) HEPATITIS C AB TEST (05/15/14) IMMUNOASSAY NONANTIBODY (05/15/14) INFLUENZA ASSAY W/OPTIC (05/05/14) MICROALBUMIN QUANTITATIVE (05/07/16) PROTHROMBIN TIME (12/15/16) ROUTINE VENIPUNCTURE (05/07/16) THROMBOPLASTIN TIME PARTIAL (12/15/16) (1) S/P total knee arthroplasty SNOMED Code(s): 2910857507955, 1988913488359 Code(s): Z96.659 - PRESENCE OF UNSPECIFIED ARTIFICIAL KNEE JOINT Priority: High Current Visit: Yes Qualifiers: Laterality: right Qualified Code(s): Z96.651 - Presence of right artificial knee joint (2) Osteoarthritis SNOMED Code(s): 766073751 Code(s): M19.90 - UNSPECIFIED OSTEOARTHRITIS, UNSPECIFIED SITE Priority: High Current Visit: Yes Qualifiers: Osteoarthritis location: knee Osteoarthritis type: primary Laterality: right Qualified Code(s): M17.11 - Unilateral primary osteoarthritis, right knee (3) Hx of gastrointestinal hemorrhage SNOMED Code(s): 127151830 Code(s): Z87.19 - PERSONAL HISTORY OF OTHER DISEASES OF THE DIGESTIVE SYSTEM Priority: High Current Visit: No (4) HLD (hyperlipidemia) SNOMED Code(s): 97728633 Code(s): E78.5 - HYPERLIPIDEMIA, UNSPECIFIED Priority: Medium Current Visit: No Qualifiers: Hyperlipidemia type: unspecified Qualified Code(s): E78.5 - Hyperlipidemia , unspecified (5) RAINER on CPAP SNOMED Code(s): 55837732 Code(s): G47.33 - OBSTRUCTIVE SLEEP APNEA (ADULT) (PEDIATRIC); Z99.89 - DEPENDENCE ON OTHER ENABLING MACHINES AND DEVICES Priority: Medium Current Visit: No (6) Interstitial lung disease SNOMED Code(s): 643619965 Code(s): J84.9 - INTERSTITIAL PULMONARY DISEASE, UNSPECIFIED Priority: Medium Current Visit: No (7) Anemia SNOMED Code(s): 270321454 Code(s): D64.9 - ANEMIA, UNSPECIFIED Priority: Medium Current Visit: Yes Qualifiers: Anemia type: unspecified type Qualified Code(s): D64.9 - Anemia, unspecified (8) CAD (coronary artery disease) of artery bypass graft SNOMED Code(s): 135723261, 751434162, 396720375 Code(s): I25.810 - ATHEROSCLEROSIS OF CABG W/O ANGINA PECTORIS Priority: Medium Current Visit: No (9) Hypertension SNOMED Code(s): 24347338 Code(s): I10 - ESSENTIAL (PRIMARY) HYPERTENSION Priority: Medium Current Visit: No Qualifiers: Hypertension type: unspecified Qualified Code(s): I10 - Essential (primary ) hypertension (10) Type 2 diabetes mellitus SNOMED Code(s): 82634383 Code(s): E11.9 - TYPE 2 DIABETES MELLITUS WITHOUT COMPLICATIONS Priority: Medium Current Visit: Yes Qualifiers: Diabetes mellitus complication status: without complication Diabetes mellitus vermin exterminator insulin use: without vermin exterminator use Qualified Code(s): E11.9 - Type 2 diabetes mellitus without complications Problem List Initiated/Reviewed/Updated: Yes My Orders Last 24 Hours: My Active Orders 12/27/16 13:49 Blood Glucose Check, Bedside [RC] QIDACANDBED 12/27/16 14:00 Insulin Aspart [NovoLOG] See Protocol SUBCUT QIDACANDBED 12/27/16 Dinner ADA Diabetic [[place] [employer] Diet] [DIET] 12/28/16 09:00 Fish Oil/[place]-3 Fatty Acids [Fish Oil] 1 gm PO DAILY Patient's Own Medication [Ptom] 0 each PO DAILY Plan: I/P: S/P Rt TKA with Dr. Meyers, POD #1 -Pain management and DVT prophylax -PT/OT -RT/IS -Preop hgb 11.7 today Recent GI Bleed within last 1-2 months -Discussed with Orth[facility] DC on Eliquis -Follow hgb closely -GI prophylax, cont home PPI at BID Hypoxia -On 4L/NC -Nursing to wean if able Intermittent confusion -Etiology: anesthesia vs ? underlying undiagnosed dementia -Cont to monitor -Up with assist at all times as is high fall risk with impulsive/compulsive behaviors and confusion. Chronic: Cont home meds except hold metformin for DM CAD, S/P PCI and CABG HTN- did receive IV lopressor overnight; cont home meds HLD DM: Preop A1C good at 6.7, Hold metformin, Accuchecks and SSI coverage during hospital stay QID/AC and HS. Hx of anemia s/p GI bleed- cont iron supplement Interstitial lung disease- RT and IS postoperatively RAINER with home CPAP Other: PT/OT CM/SW for dc planning- will recommend hold discharge for 24 hours due to hypoxia , confusion, monitoring of HR and B/P and follow labs. Patient is Full Code status PCP is Tasneem Green at [facility]
[2016-12-28] MEDS: CYANOCOBALAMIN PO SCH (12:00)
[2016-12-28] MEDS: [UNRECOGNIZED DRUG - OTHER] PO SCH (12:00)
[2016-12-28] MEDS: PYRIDOXINE PO SCH (12:00)
--- NOTE | 2016-12-28 17:34 | PCM.SURGPN ---
- General Info Date of Service: 12/28/16 POD#: 1 Functional Status: Reports: Tolerating Diet, Ambulating, Urinating, Incentive Spirometry, Other (The pt notes increase pain with therapy today.) - Review of Systems General: Denies: Fever, Chills Musculoskeletal: Reports: Other (The pt progressed slowly with therapy today.) - Patient Data Vitals - Most Recent: Last Vital Signs Temp 98.4 F 12/28/16 15:43 Pulse 82 12/28/16 15:43 Resp 16 12/28/16 15:43 BP 135/74 12/28/16 15:43 Pulse Ox 92 L 12/28/16 15:43 Weight - Most Recent: 244 lb 11.2 oz I&O - Last 24 Hours: Intake & Output 12/28/16 12/28/16 12/28/16 06:59 14:59 22:59 Intake Total 9276 830 8712 Output Total 300 1300 Balance 1350 240 -270 Lab Results Last 24 Hrs: Laboratory Results - last 24 hr 12/27/16 12/27/16 12/28/16 Range/Units 18:25 21:29 06:45 WBC 12.83 H (4.23-9.07) K/mm3 RBC 4.67 (4.63-6.08) M/mm3 Hgb 11.7 L (13.7-17.5) gm/L Hct 37.5 L (40.1-51.0) % MCV 80.3 (79.0-92.2) fl MCH 25.1 L (25.7-32.2) pg MCHC 31.2 L (32.2-35.5) g/dl RDW Std Deviation 45.2 H (35.1-43.9) fL Plt Count 240 (163-337) K/mm3 MPV 10.7 (9.4-12.3) fl Sodium (136-145) mEq/L Potassium (3.5-5.1) mEq/L Chloride (98-107) mEq/L Carbon Dioxide (21-32) mEq/L Anion Gap (5-15) BUN (7-18) mg/dL Creatinine (0.7-1.3) mg/dL Est Cr Clr Drug Dosing mL/min Estimated GFR (MDRD) (>60) mL/min BUN/Creatinine Ratio (14-18) Glucose (80-115) mg/dL POC Glucose 135 H 153 H (80-115) mg/dL Calcium (8.5-10.1) mg/dL Total Bilirubin (0.2-1.0) mg/dL AST (15-37) U/L ALT (16-63) U/L Alkaline Phosphatase (46-116) U/L Total Protein (6.4-8.2) g/dl Albumin (3.4-5.0) g/dl Globulin gm/dL Albumin/Globulin Ratio (1-2) 12/28/16 12/28/16 12/28/16 Range/Units 06:45 06:47 11:43 WBC (4.23-9.07) K/mm3 RBC (4.63-6.08) M/mm3 Hgb (13.7-17.5) gm/L Hct (40.1-51.0) % MCV (79.0-92.2) fl MCH (25.7-32.2) pg MCHC (32.2-35.5) g/dl RDW Std Deviation (35.1-43.9) fL Plt Count (163-337) K/mm3 MPV (9.4-12.3) fl Sodium 136 (136-145) mEq/L Potassium 4.3 (3.5-5.1) mEq/L Chloride 100 (98-107) mEq/L Carbon Dioxide 25 (21-32) mEq/L Anion Gap 15.3 H (5-15) BUN 21 H (7-18) mg/dL Creatinine 1.1 (0.7-1.3) mg/dL Est Cr Clr Drug Dosing 63.91 mL/min Estimated GFR (MDRD) > 60 (>60) mL/min BUN/Creatinine Ratio 19.1 H (14-18) Glucose 210 H (80-115) mg/dL POC Glucose 170 H 235 H (80-115) mg/dL Calcium 9.0 (8.5-10.1) mg/dL Total Bilirubin 1.1 H (0.2-1.0) mg/dL AST 29 (15-37) U/L ALT 35 (16-63) U/L Alkaline Phosphatase 68 (46-116) U/L Total Protein 7.2 (6.4-8.2) g/dl Albumin 3.3 L (3.4-5.0) g/dl Globulin 3.9 gm/dL Albumin/Globulin Ratio 0.9 L (1-2) 12/28/16 Range/Units 17:05 WBC (4.23-9.07) K/mm3 RBC (4.63-6.08) M/mm3 Hgb (13.7-17.5) gm/L Hct (40.1-51.0) % MCV (79.0-92.2) fl MCH (25.7-32.2) pg MCHC (32.2-35.5) g/dl RDW Std Deviation (35.1-43.9) fL Plt Count (163-337) K/mm3 MPV (9.4-12.3) fl Sodium (136-145) mEq/L Potassium (3.5-5.1) mEq/L Chloride (98-107) mEq/L Carbon Dioxide (21-32) mEq/L Anion Gap (5-15) BUN (7-18) mg/dL Creatinine (0.7-1.3) mg/dL Est Cr Clr Drug Dosing mL/min Estimated GFR (MDRD) (>60) mL/min BUN/Creatinine Ratio (14-18) Glucose (80-115) mg/dL POC Glucose 244 H (80-115) mg/dL Calcium (8.5-10.1) mg/dL Total Bilirubin (0.2-1.0) mg/dL AST (15-37) U/L ALT (16-63) U/L Alkaline Phosphatase (46-116) U/L Total Protein (6.4-8.2) g/dl Albumin (3.4-5.0) g/dl Globulin gm/dL Albumin/Globulin Ratio (1-2) Med Orders - Current: Current Medications Apixaban (Eliquis) 2.5 mg PO Q12H JERONIMO Last Admin: 12/28/16 08:38 Dose: 2.5 mg Aspirin (Halfprin) 81 mg PO DAILY JERONIMO Last Admin: 12/28/16 08:39 Dose: 81 mg Bisacodyl (Dulcolax) 5 mg PO DAILY PRN PRN Reason: Constipation Diphenhydramine HCl (Benadryl) 25 mg IVPUSH Q4H PRN PRN Reason: Nausea Last Admin: 12/28/16 03:05 Dose: 25 mg Docusate Sodium (Colace) 100 mg PO BID [facility] [place] Last Admin: 12/28/16 08:39 Dose: 100 mg Ferrous Sulfate (Ferrous Sulfate) 325 mg PO DAILY [facility] [place] Last Admin: 12/28/16 08:41 Dose: 325 mg Fish Oil (Fish Oil) 1 gm PO DAILY [facility] [place] Last Admin: 12/28/16 08:41 Dose: 1 gm Glipizide (Glucotrol Xl) 2.5 mg PO DAILY [facility] [place] Last Admin: 12/28/16 08:56 Dose: Not Given Insulin Aspart (Novolog) 0 unit SUBCUT QIDACANDBED [facility] [place] PRN Reason: Protocol Last Admin: 12/28/16 12:00 Dose: 2 unit Lisinopril (Prinivil) 5 mg PO DAILY [facility] [place] Last Admin: 12/28/16 08:43 Dose: 5 mg Magnesium Hydroxide (Milk Of Magnesia) 30 ml PO BID PRN PRN Reason: Constipation Meclizine HCl (Antivert) 25 mg PO QID PRN PRN Reason: Dizziness Metoprolol Succinate (Toprol Xl) 50 mg PO DAILY [facility] [place] Last Admin: 12/28/16 08:41 Dose: 50 mg Morphine Sulfate (Morphine) 2 mg IVPUSH Q2H PRN PRN Reason: Breakthrough Pain Last Admin: 12/28/16 11:17 Dose: 2 mg Multivitamins (Thera) 1 each PO DAILY [facility] [place] Last Admin: 12/28/16 08:38 Dose: 1 each Ondansetron HCl (Zofran) 4 mg IVPUSH Q6H PRN PRN Reason: Nausea/Vomiting Last Admin: 12/28/16 08:12 Dose: 4 mg Oxycodone/Acetaminophen (Percocet 325-5 Mg) 1 - 2 tab PO Q4H PRN PRN Reason: Pain Last Admin: 12/28/16 13:18 Dose: 2 tab Pantoprazole Sodium (Protonix) 40 mg PO BID [facility] [place] Last Admin: 12/28/16 08:41 Dose: 40 mg Dapagliflozin Propanediol [Farxiga ] 5 Mg 0 each PO DAILY [facility] [place] Last Admin: 12/28/16 08:48 Dose: Not Given Cyanocobalamin/Fa/ (Pyridoxine 1 Tab) 0 each PO DAILY [facility] [place] Last Admin: 12/28/16 12:00 Dose: Not Given Rosuvastatin Calcium (Crestor) 10 mg PO BEDTIME JERONIMO Last Admin: 12/27/16 21:05 Dose: 10 mg Senna (Senna) 8.6 mg PO BID PRN PRN Reason: Constipation Last Admin: 12/28/16 07:05 Dose: 8.6 mg Sodium Chloride (Saline Flush) 10 ml FLUSH ASDIRECTED PRN PRN Reason: Keep Vein Open Discontinued Medications Bupivacaine HCl (Marcaine 0.25%) Confirm Administered Dose 30 ml .ROUTE .STK- MED ONE Stop: 12/27/16 06:06 Last Admin: 12/27/16 08:39 Dose: 30 ml Cefazolin Sodium (Ancef) Confirm Administered Dose 2 gm .ROUTE .STK-MED ONE Stop: 12/27/16 06:06 Cefazolin Sodium (Ancef) Confirm Administered Dose 2 gm .ROUTE .STK-MED ONE Stop: 12/27/16 07:29 Last Admin: 12/27/16 08:32 Dose: 2 gm Morphine Sulfate 8 mg/Epinephrine HCl 0.3 mg/Cefuroxime Sodium 750 mg/Ketorolac Tromethamine 30 mg/Sodium Chloride 27.9 ml 0 mg .XX ONETIME ONE Stop: 12/27/16 07:46 Last Admin: 12/27/16 08:37 Dose: 788.3 mg Diphenhydramine HCl (Benadryl) 25 mg IVPUSH Q6H PRN PRN Reason: Itching Stop: 12/27/16 18:00 Last Admin: 12/27/16 10:54 Dose: 25 mg Diphenhydramine HCl (Benadryl) 25 mg IVPUSH ONETIME ONE Stop: 12/27/16 11:39 Last Admin: 12/27/16 11:47 Dose: 25 mg Famotidine (Pepcid) 20 mg PO BID JERONIMO Famotidine (Pepcid) 20 mg IVPUSH ONETIME ONE Stop: 12/27/16 11:40 Last Admin: 12/27/16 11:46 Dose: 20 mg Fentanyl (Sublimaze) Confirm Administered Dose 100 mcg .ROUTE .STK-MED ONE Stop: 12/27/16 07:30 Fentanyl (Sublimaze) 50 mcg IVPUSH Q5M PRN PRN Reason: PAIN Stop: 12/27/16 18:00 Lactated Ringer's (Ringers, Lactated) 1,000 mls @ 125 mls/hr IV ASDIRECTED [facility] [place] Last Admin: 12/27/16 06:15 Dose: 125 mls/hr Cefazolin Sodium/Dextrose 2 gm (/ Premix) 50 mls @ 100 mls/hr IV Q8H JERONIMO Stop: 12/28/16 07:59 Last Admin: 12/28/16 07:37 Dose: 100 mls/hr Lactated Ringer's (Ringers, Lactated) Confirm Administered Dose 1,000 mls @ as directed .ROUTE .STK-MED ONE Stop: 12/27/16 08:20 Lactated Ringer's (Ringers, Lactated) Confirm Administered Dose 1,000 mls @ as directed .ROUTE .STK-MED ONE Stop: 12/27/16 08:46 Iodine (Iodine 2% Mild Tincture) Confirm Administered Dose 30 ml .ROUTE .STK- MED ONE Stop: 12/27/16 06:06 Last Admin: 12/27/16 08:28 Dose: 18 ml Lidocaine/Sodium Bicarbonate (Buffered Lidocaine 1% In Ns 8.4%) 0.25 ml IV ONETIME PRN PRN Reason: Prior to IV Start Last Admin: 12/27/16 06:14 Dose: 0.25 ml Metformin HCl (Glucophage) 1,000 mg PO BID [facility] [place] Metoprolol Tartrate (Lopressor) 5 mg IVPUSH ONETIME ONE Stop: 12/27/16 22:08 Last Admin: 12/27/16 22:33 Dose: 5 mg Midazolam HCl (Versed 1 Mg/Ml) Confirm Administered Dose 2 mg .ROUTE .STK-MED ONE Stop: 12/27/16 07:29 Morphine Sulfate (Duramorph Pf) Confirm Administered Dose 10 mg .ROUTE .STK-MED ONE Stop: 12/27/16 07:29 Non-Formulary Medication (Exenatide Microspheres [Bydureon]) 2 mg SQ Q14D [facility] [place] Last Admin: 12/27/16 12:57 Dose: Not Given Phenylephrine HCl (Mejia-Synephrine) Confirm Administered Dose 10 mg .ROUTE .STK- MED ONE Stop: 12/27/16 08:18 Propofol (Diprivan 20 Ml) Confirm Administered Dose 200 mg .ROUTE .STK-MED ONE Stop: 12/27/16 07:30 Propofol (Diprivan 20 Ml) Confirm Administered Dose 200 mg .ROUTE .STK-MED ONE Stop: 12/27/16 08:15 Propofol (Diprivan 20 Ml) Confirm Administered Dose 200 mg .ROUTE .STK-MED ONE Stop: 12/27/16 08:43 Scopolamine (Transderm-Scop) 1.5 mg TRDERM Q72H ONE Stop: 12/27/16 00:01 Last Admin: 12/27/16 12:48 Dose: Not Given Scopolamine (Transderm-Scop) 1.5 mg TRDERM Q72H ONE Stop: 12/27/16 07:16 Last Admin: 12/27/16 07:17 Dose: 1.5 mg Tranexamic Acid (Cyklokapron) Confirm Administered Dose 1,000 mg .ROUTE .STK- MED ONE Stop: 12/27/16 06:06 Last Admin: 12/27/16 08:41 Dose: 1,000 mg Vancomycin HCl (Vancomycin) 1 gm .XX ONETIME ONE Stop: 12/27/16 11:01 Last Admin: 12/27/16 08:40 Dose: 1 gm - Exam Wound/Incisions: Dressing Dry and Intact General: Alert, Cooperative, No Acute Distress Lungs: Normal Respiratory Effort Extremities: Other (NVS intact for BLE. Connor's negative BLE. ) - Problem List Review Problem List Initiated/Reviewed/Updated: Yes - My Orders Last 24 Hours: Active Orders 24 hr Category Date Time Status Patient Status [ADT] Routine ADT 12/27/16 22:00 Active Cardiac Monitoring [RC] CONTINUOUS Care 12/27/16 22:18 Active ADA Diabetic [[employer] Diet] [DIET Diet 12/27/16 Dinner Active ] BASIC METABOLIC PANEL,BMP [CHEM] AM Lab 12/29/16 05:11 Ordered CBC WITH AUTO DIFF [HEME] AM Lab 12/29/16 05:11 Ordered Apixaban [Eliquis] Med 12/28/16 09:00 Active 2.5 mg PO Q12H Aspirin [Halfprin] Med 12/28/16 09:00 Active 81 mg PO DAILY Docusate Sodium [Colace] Med 12/27/16 21:00 Active 100 mg PO BID Ferrous Sulfate Med 12/28/16 09:00 Active 325 mg PO DAILY Fish Oil/Danube-3 Fatty Acids [Fish Oil] Med 12/28/16 09:00 Active 1 gm PO DAILY Lisinopril [Prinivil] Med 12/28/16 09:00 Active 5 mg PO DAILY Metoprolol Succinate [Toprol XL] Med 12/28/16 09:00 Active 50 mg PO DAILY Multivitamins,Therapeutic [Thera] Med 12/28/16 09:00 Active 1 each PO DAILY Pantoprazole [ProTONIX] Med 12/27/16 21:00 Active 40 mg PO BID Patient's Own Medication [Ptom] Med 12/28/16 09:00 Active 0 each PO DAILY Patient's Own Medication [Ptom] Med 12/28/16 09:00 Active 0 each PO DAILY Rosuvastatin [Crestor] Med 12/27/16 21:00 Active 10 mg PO BEDTIME glipiZIDE [Glucotrol XL] Med 12/28/16 09:00 Active 2.5 mg PO DAILY Medication Orders Apixaban (Eliquis) 2.5 mg PO Q12H [facility] [place] Last Admin: 12/28/16 08:38 Dose: 2.5 mg Aspirin (Halfprin) 81 mg PO DAILY [facility] [place] Last Admin: 12/28/16 08:39 Dose: 81 mg Bisacodyl (Dulcolax) 5 mg PO DAILY PRN PRN Reason: Constipation Diphenhydramine HCl (Benadryl) 25 mg IVPUSH Q4H PRN PRN Reason: Nausea Last Admin: 12/28/16 03:05 Dose: 25 mg Admin: 12/27/16 21:11 Dose: 25 mg Docusate Sodium (Colace) 100 mg PO BID [facility] [place] Last Admin: 12/28/16 08:39 Dose: 100 mg Admin: 12/27/16 21:04 Dose: 100 mg Ferrous Sulfate (Ferrous Sulfate) 325 mg PO DAILY [facility] [place] Last Admin: 12/28/16 08:41 Dose: 325 mg Fish Oil (Fish Oil) 1 gm PO DAILY [facility] [place] Last Admin: 12/28/16 08:41 Dose: 1 gm Glipizide (Glucotrol Xl) 2.5 mg PO DAILY [facility] [place] Last Admin: 12/28/16 08:56 Dose: Not Given Insulin Aspart (Novolog) 0 unit SUBCUT QIDACANDBED [facility] [place] PRN Reason: Protocol Last Admin: 12/28/16 12:00 Dose: 2 unit Admin: 12/28/16 08:56 Dose: 1 unit Admin: 12/27/16 22:54 Dose: 1 unit Admin: 12/27/16 18:00 Dose: Not Given Admin: 12/27/16 15:38 Dose: Not Given Lisinopril (Prinivil) 5 mg PO DAILY [facility] [place] Last Admin: 12/28/16 08:43 Dose: 5 mg Magnesium Hydroxide (Milk Of Magnesia) 30 ml PO BID PRN PRN Reason: Constipation Meclizine HCl (Antivert) 25 mg PO QID PRN PRN Reason: Dizziness Metoprolol Succinate (Toprol Xl) 50 mg PO DAILY [facility] [place] Last Admin: 12/28/16 08:41 Dose: 50 mg Morphine Sulfate (Morphine) 2 mg IVPUSH Q2H PRN PRN Reason: Breakthrough Pain Last Admin: 12/28/16 11:17 Dose: 2 mg Admin: 12/28/16 07:02 Dose: 2 mg Multivitamins (Thera) 1 each PO DAILY [facility] [place] Last Admin: 12/28/16 08:38 Dose: 1 each Ondansetron HCl (Zofran) 4 mg IVPUSH Q6H PRN PRN Reason: Nausea/Vomiting Last Admin: 12/28/16 08:12 Dose: 4 mg Admin: 12/27/16 17:25 Dose: 4 mg Oxycodone/Acetaminophen (Percocet 325-5 Mg) 1 - 2 tab PO Q4H PRN PRN Reason: Pain Last Admin: 12/28/16 13:18 Dose: 2 tab Admin: 12/28/16 08:43 Dose: 2 tab Admin: 12/28/16 03:09 Dose: 2 tab Admin: 12/27/16 22:52 Dose: 1 tab Admin: 12/27/16 21:07 Dose: 1 tab Pantoprazole Sodium (Protonix) 40 mg PO BID [facility] [place] Last Admin: 12/28/16 08:41 Dose: 40 mg Admin: 12/27/16 21:06 Dose: 40 mg Dapagliflozin Propanediol [Farxiga ] 5 Mg 0 each PO DAILY [facility] [place] Last Admin: 12/28/16 08:48 Dose: Not Given Cyanocobalamin/Fa/ (Pyridoxine 1 Tab) 0 each PO DAILY [facility] [place] Last Admin: 12/28/16 12:00 Dose: Rosuvastatin Calcium (Crestor) 10 mg PO BEDTIME JERONIMO Last Admin: 12/27/16 21:05 Dose: 10 mg Senna (Senna) 8.6 mg PO BID PRN PRN Reason: Constipation Last Admin: 12/28/16 07:05 Dose: 8.6 mg Sodium Chloride (Saline Flush) 10 ml FLUSH ASDIRECTED PRN PRN Reason: Keep Vein Open - Assessment Assessment (Free Text/Narrative):: POD#1 - right TKA - Plan Plan (Free Text/Narrative):: 1. Medical management per Hospitalist service. Blood sugars will be closely monitored. 2. The pt will remain in Hospital tonight for further monitoring and therapy. 3. Eliquis BID. Hgb will be monitored. Hgb 11.7 today. 4. Continue with P.T. and O.T. Suspect d/c to home tomorrow. The pt's case was discussed with Dr. Meyers today.
[2016-12-28] MEDS: Rosuvastatin 10 MG Tab PO SCH (20:49)
[2016-12-29] MEDS: Acetaminophen/oxyCODONE 325-5 MG Tab PO PRN ×3 (04:00→13:46)
[2016-12-29] MEDS: diphenhydrAMINE 50 MG/ML SDV IVPUSH PRN (06:04)
[2016-12-29] MEDS: Insulin Aspart 100 Units/ML 3 ML Pen SUBCUT SCH ×3 (06:59→20:34)
--- NOTE | 2016-12-29 07:04 | PCM.SURGPN ---
- General Info Date of Service: 12/29/16 POD#: 2 Functional Status: Reports: Pain Controlled, Tolerating Diet, Ambulating, Urinating, Incentive Spirometry, Other (The pt states she feels prepared for discharge to home.) - Review of Systems Musculoskeletal: Reports: Other (The pt reports his pain is under better control today.) - Patient Data Vitals - Most Recent: Last Vital Signs Temp 98.2 F 12/29/16 03:20 Pulse 72 12/29/16 03:20 Resp 18 12/29/16 03:20 BP 112/71 12/29/16 03:20 Pulse Ox 95 12/29/16 03:20 Weight - Most Recent: 241 lb 8 oz I&O - Last 24 Hours: Intake & Output 12/28/16 12/29/16 12/29/16 22:59 06:59 14:59 Intake Total 1030 500 Output Total 1300 950 Balance -270 -450 Lab Results Last 24 Hrs: Laboratory Results - last 24 hr 12/28/16 12/28/16 12/28/16 Range/Units 06:45 06:45 11:43 WBC 12.83 H (4.23-9.07) K/mm3 RBC 4.67 (4.63-6.08) M/mm3 Hgb 11.7 L (13.7-17.5) gm/L Hct 37.5 L (40.1-51.0) % MCV 80.3 (79.0-92.2) fl MCH 25.1 L (25.7-32.2) pg MCHC 31.2 L (32.2-35.5) g/dl RDW Std Deviation 45.2 H (35.1-43.9) fL Plt Count 240 (163-337) K/mm3 MPV 10.7 (9.4-12.3) fl Sodium 136 (136-145) mEq/L Potassium 4.3 (3.5-5.1) mEq/L Chloride 100 (98-107) mEq/L Carbon Dioxide 25 (21-32) mEq/L Anion Gap 15.3 H (5-15) BUN 21 H (7-18) mg/dL Creatinine 1.1 (0.7-1.3) mg/dL Est Cr Clr Drug Dosing 63.91 mL/min Estimated GFR (MDRD) > 60 (>60) mL/min BUN/Creatinine Ratio 19.1 H (14-18) Glucose 210 H (80-115) mg/dL POC Glucose 235 H (80-115) mg/dL Calcium 9.0 (8.5-10.1) mg/dL Total Bilirubin 1.1 H (0.2-1.0) mg/dL AST 29 (15-37) U/L ALT 35 (16-63) U/L Alkaline Phosphatase 68 (46-116) U/L Total Protein 7.2 (6.4-8.2) g/dl Albumin 3.3 L (3.4-5.0) g/dl Globulin 3.9 gm/dL Albumin/Globulin Ratio 0.9 L (1-2) 12/28/16 12/28/16 12/29/16 Range/Units 17:05 20:50 06:15 WBC (4.23-9.07) K/mm3 RBC (4.63-6.08) M/mm3 Hgb (13.7-17.5) gm/L Hct (40.1-51.0) % MCV (79.0-92.2) fl MCH (25.7-32.2) pg MCHC (32.2-35.5) g/dl RDW Std Deviation (35.1-43.9) fL Plt Count (163-337) K/mm3 MPV (9.4-12.3) fl Sodium (136-145) mEq/L Potassium (3.5-5.1) mEq/L Chloride (98-107) mEq/L Carbon Dioxide (21-32) mEq/L Anion Gap (5-15) BUN (7-18) mg/dL Creatinine (0.7-1.3) mg/dL Est Cr Clr Drug Dosing mL/min Estimated GFR (MDRD) (>60) mL/min BUN/Creatinine Ratio (14-18) Glucose (80-115) mg/dL POC Glucose 244 H 201 H 171 H (80-115) mg/dL Calcium (8.5-10.1) mg/dL Total Bilirubin (0.2-1.0) mg/dL AST (15-37) U/L ALT (16-63) U/L Alkaline Phosphatase (46-116) U/L Total Protein (6.4-8.2) g/dl Albumin (3.4-5.0) g/dl Globulin gm/dL Albumin/Globulin Ratio (1-2) Med Orders - Current: Current Medications Apixaban (Eliquis) 2.5 mg PO Q12H [facility] Last Admin: 12/28/16 20:48 Dose: 2.5 mg Aspirin (Halfprin) 81 mg PO DAILY [facility] Last Admin: 12/28/16 08:39 Dose: 81 mg Bisacodyl (Dulcolax) 5 mg PO DAILY PRN PRN Reason: Constipation Diphenhydramine HCl (Benadryl) 25 mg IVPUSH Q4H PRN PRN Reason: Nausea Last Admin: 12/29/16 06:04 Dose: 25 mg Docusate Sodium (Colace) 100 mg PO BID [facility] Last Admin: 12/28/16 20:47 Dose: 100 mg Ferrous Sulfate (Ferrous Sulfate) 325 mg PO DAILY [facility] Last Admin: 12/28/16 08:41 Dose: 325 mg Fish Oil (Fish Oil) 1 gm PO DAILY [facility] Last Admin: 12/28/16 08:41 Dose: 1 gm Glipizide (Glucotrol Xl) 2.5 mg PO DAILY [facility] Last Admin: 12/28/16 08:56 Dose: Not Given Insulin Aspart (Novolog) 0 unit SUBCUT QIDACANDBED [facility] PRN Reason: Protocol Last Admin: 12/29/16 06:59 Dose: 1 unit Lisinopril (Prinivil) 5 mg PO DAILY [facility] Last Admin: 12/28/16 08:43 Dose: 5 mg Magnesium Hydroxide (Milk Of Magnesia) 30 ml PO BID PRN PRN Reason: Constipation Meclizine HCl (Antivert) 25 mg PO QID PRN PRN Reason: Dizziness Metoprolol Succinate (Toprol Xl) 50 mg PO DAILY [facility] Last Admin: 12/28/16 08:41 Dose: 50 mg Morphine Sulfate (Morphine) 2 mg IVPUSH Q2H PRN PRN Reason: Breakthrough Pain Last Admin: 12/28/16 11:17 Dose: 2 mg Multivitamins (Thera) 1 each PO DAILY [facility] Last Admin: 12/28/16 08:38 Dose: 1 each Ondansetron HCl (Zofran) 4 mg IVPUSH Q6H PRN PRN Reason: Nausea/Vomiting Last Admin: 12/28/16 08:12 Dose: 4 mg Oxycodone/Acetaminophen (Percocet 325-5 Mg) 1 - 2 tab PO Q4H PRN PRN Reason: Pain Last Admin: 12/29/16 04:00 Dose: 2 tab Pantoprazole Sodium (Protonix) 40 mg PO BID [facility] Last Admin: 12/28/16 20:49 Dose: 40 mg Dapagliflozin Propanediol [Farxiga ] 5 Mg 0 each PO DAILY [facility] Last Admin: 12/28/16 08:48 Dose: Not Given Cyanocobalamin/Fa/ (Pyridoxine 1 Tab) 0 each PO DAILY [facility] Last Admin: 12/28/16 12:00 Dose: Not Given Rosuvastatin Calcium (Crestor) 10 mg PO BEDTIME [facility] Last Admin: 12/28/16 20:49 Dose: 10 mg Senna (Senna) 8.6 mg PO BID PRN PRN Reason: Constipation Last Admin: 12/28/16 07:05 Dose: 8.6 mg Sodium Chloride (Saline Flush) 10 ml FLUSH ASDIRECTED PRN PRN Reason: Keep Vein Open Discontinued Medications Bupivacaine HCl (Marcaine 0.25%) Confirm Administered Dose 30 ml .ROUTE .STK- MED ONE Stop: 12/27/16 06:06 Last Admin: 12/27/16 08:39 Dose: 30 ml Cefazolin Sodium (Ancef) Confirm Administered Dose 2 gm .ROUTE .STK-MED ONE Stop: 12/27/16 06:06 Cefazolin Sodium (Ancef) Confirm Administered Dose 2 gm .ROUTE .STK-MED ONE Stop: 12/27/16 07:29 Last Admin: 12/27/16 08:32 Dose: 2 gm Morphine Sulfate 8 mg/Epinephrine HCl 0.3 mg/Cefuroxime Sodium 750 mg/Ketorolac Tromethamine 30 mg/Sodium Chloride 27.9 ml 0 mg .XX ONETIME ONE Stop: 12/27/16 07:46 Last Admin: 12/27/16 08:37 Dose: 788.3 mg Diphenhydramine HCl (Benadryl) 25 mg IVPUSH Q6H PRN PRN Reason: Itching Stop: 12/27/16 18:00 Last Admin: 12/27/16 10:54 Dose: 25 mg Diphenhydramine HCl (Benadryl) 25 mg IVPUSH ONETIME ONE Stop: 12/27/16 11:39 Last Admin: 12/27/16 11:47 Dose: 25 mg Famotidine (Pepcid) 20 mg PO BID [facility] Famotidine (Pepcid) 20 mg IVPUSH ONETIME ONE Stop: 12/27/16 11:40 Last Admin: 12/27/16 11:46 Dose: 20 mg Fentanyl (Sublimaze) Confirm Administered Dose 100 mcg .ROUTE .STK-MED ONE Stop: 12/27/16 07:30 Fentanyl (Sublimaze) 50 mcg IVPUSH Q5M PRN PRN Reason: PAIN Stop: 12/27/16 18:00 Lactated Ringer's (Ringers, Lactated) 1,000 mls @ 125 mls/hr IV ASDIRECTED [facility] Last Admin: 12/27/16 06:15 Dose: 125 mls/hr Cefazolin Sodium/Dextrose 2 gm (/ Premix) 50 mls @ 100 mls/hr IV Q8H [facility] Stop: 12/28/16 07:59 Last Admin: 12/28/16 07:37 Dose: 100 mls/hr Lactated Ringer's (Ringers, Lactated) Confirm Administered Dose 1,000 mls @ as directed .ROUTE .STK-MED ONE Stop: 12/27/16 08:20 Lactated Ringer's (Ringers, Lactated) Confirm Administered Dose 1,000 mls @ as directed .ROUTE .STK-MED ONE Stop: 12/27/16 08:46 Iodine (Iodine 2% Mild Tincture) Confirm Administered Dose 30 ml .ROUTE .STK- MED ONE Stop: 12/27/16 06:06 Last Admin: 12/27/16 08:28 Dose: 18 ml Lidocaine/Sodium Bicarbonate (Buffered Lidocaine 1% In Ns 8.4%) 0.25 ml IV ONETIME PRN PRN Reason: Prior to IV Start Last Admin: 12/27/16 06:14 Dose: 0.25 ml Metformin HCl (Glucophage) 1,000 mg PO BID [facility] Metoprolol Tartrate (Lopressor) 5 mg IVPUSH ONETIME ONE Stop: 12/27/16 22:08 Last Admin: 12/27/16 22:33 Dose: 5 mg Midazolam HCl (Versed 1 Mg/Ml) Confirm Administered Dose 2 mg .ROUTE .STK-MED ONE Stop: 12/27/16 07:29 Morphine Sulfate (Duramorph Pf) Confirm Administered Dose 10 mg .ROUTE .STK-MED ONE Stop: 12/27/16 07:29 Non-Formulary Medication (Exenatide Microspheres [Bydureon]) 2 mg SQ Q14D [facility] Last Admin: 12/27/16 12:57 Dose: Not Given Phenylephrine HCl (Mejia-Synephrine) Confirm Administered Dose 10 mg .ROUTE .STK- MED ONE Stop: 12/27/16 08:18 Propofol (Diprivan 20 Ml) Confirm Administered Dose 200 mg .ROUTE .STK-MED ONE Stop: 12/27/16 07:30 Propofol (Diprivan 20 Ml) Confirm Administered Dose 200 mg .ROUTE .STK-MED ONE Stop: 12/27/16 08:15 Propofol (Diprivan 20 Ml) Confirm Administered Dose 200 mg .ROUTE .STK-MED ONE Stop: 12/27/16 08:43 Scopolamine (Transderm-Scop) 1.5 mg TRDERM Q72H ONE Stop: 12/27/16 00:01 Last Admin: 12/27/16 12:48 Dose: Not Given Scopolamine (Transderm-Scop) 1.5 mg TRDERM Q72H ONE Stop: 12/27/16 07:16 Last Admin: 12/27/16 07:17 Dose: 1.5 mg Tranexamic Acid (Cyklokapron) Confirm Administered Dose 1,000 mg .ROUTE .STK- MED ONE Stop: 12/27/16 06:06 Last Admin: 12/27/16 08:41 Dose: 1,000 mg Vancomycin HCl (Vancomycin) 1 gm .XX ONETIME ONE Stop: 12/27/16 11:01 Last Admin: 12/27/16 08:40 Dose: 1 gm - Exam Wound/Incisions: Dressing Dry and Intact General: Alert, Cooperative, No Acute Distress, Other (Friendly. ) Extremities: Other (NVS intact for RLE. Connor's negative.) - Problem List Review Problem List Initiated/Reviewed/Updated: Yes - My Orders Last 24 Hours: Active Orders 24 hr Category Date Time Status BASIC METABOLIC PANEL,BMP [CHEM] AM Lab 12/29/16 05:11 Ordered CBC WITH AUTO DIFF [HEME] AM Lab 12/29/16 05:11 Ordered Apixaban [Eliquis] Med 12/28/16 09:00 Active 2.5 mg PO Q12H Aspirin [Halfprin] Med 12/28/16 09:00 Active 81 mg PO DAILY Ferrous Sulfate Med 12/28/16 09:00 Active 325 mg PO DAILY Fish Oil/[place]-3 Fatty Acids [Fish Oil] Med 12/28/16 09:00 Active 1 gm PO DAILY Lisinopril [Prinivil] Med 12/28/16 09:00 Active 5 mg PO DAILY Metoprolol Succinate [Toprol XL] Med 12/28/16 09:00 Active 50 mg PO DAILY Multivitamins,Therapeutic [Thera] Med 12/28/16 09:00 Active 1 each PO DAILY Patient's Own Medication [Ptom] Med 12/28/16 09:00 Active 0 each PO DAILY Patient's Own Medication [Ptom] Med 12/28/16 09:00 Active 0 each PO DAILY glipiZIDE [Glucotrol XL] Med 12/28/16 09:00 Active 2.5 mg PO DAILY Medication Orders Apixaban (Eliquis) 2.5 mg PO Q12H [facility] Last Admin: 12/28/16 20:48 Dose: 2.5 mg Admin: 12/28/16 08:38 Dose: 2.5 mg Aspirin (Halfprin) 81 mg PO DAILY [facility] Last Admin: 12/28/16 08:39 Dose: 81 mg Bisacodyl (Dulcolax) 5 mg PO DAILY PRN PRN Reason: Constipation Diphenhydramine HCl (Benadryl) 25 mg IVPUSH Q4H PRN PRN Reason: Nausea Last Admin: 12/29/16 06:04 Dose: 25 mg Admin: 12/28/16 23:39 Dose: 25 mg Admin: 12/28/16 03:05 Dose: 25 mg Admin: 12/27/16 21:11 Dose: 25 mg Docusate Sodium (Colace) 100 mg PO BID [facility] Last Admin: 12/28/16 20:47 Dose: 100 mg Admin: 12/28/16 08:39 Dose: 100 mg Admin: 12/27/16 21:04 Dose: 100 mg Ferrous Sulfate (Ferrous Sulfate) 325 mg PO DAILY [facility] Last Admin: 12/28/16 08:41 Dose: 325 mg Fish Oil (Fish Oil) 1 gm PO DAILY [facility] Last Admin: 12/28/16 08:41 Dose: 1 gm Glipizide (Glucotrol Xl) 2.5 mg PO DAILY [facility] Last Admin: 12/28/16 08:56 Dose: Not Given Insulin Aspart (Novolog) 0 unit SUBCUT QIDACANDBED [facility] PRN Reason: Protocol Last Admin: 12/29/16 06:59 Dose: 1 unit Admin: 12/28/16 21:04 Dose: 2 unit Admin: 12/28/16 18:02 Dose: 2 unit Admin: 12/28/16 12:00 Dose: 2 unit Admin: 12/28/16 08:56 Dose: 1 unit Admin: 12/27/16 22:54 Dose: 1 unit Admin: 12/27/16 18:00 Dose: Not Given Admin: 12/27/16 15:38 Dose: Not Given Lisinopril (Prinivil) 5 mg PO DAILY [facility] Last Admin: 12/28/16 08:43 Dose: 5 mg Magnesium Hydroxide (Milk Of Magnesia) 30 ml PO BID PRN PRN Reason: Constipation Meclizine HCl (Antivert) 25 mg PO QID PRN PRN Reason: Dizziness Metoprolol Succinate (Toprol Xl) 50 mg PO DAILY [facility] Last Admin: 12/28/16 08:41 Dose: 50 mg Morphine Sulfate (Morphine) 2 mg IVPUSH Q2H PRN PRN Reason: Breakthrough Pain Last Admin: 12/28/16 11:17 Dose: 2 mg Admin: 12/28/16 07:02 Dose: 2 mg Multivitamins (Thera) 1 each PO DAILY [facility] Last Admin: 12/28/16 08:38 Dose: 1 each Ondansetron HCl (Zofran) 4 mg IVPUSH Q6H PRN PRN Reason: Nausea/Vomiting Last Admin: 12/28/16 08:12 Dose: 4 mg Admin: 12/27/16 17:25 Dose: 4 mg Oxycodone/Acetaminophen (Percocet 325-5 Mg) 1 - 2 tab PO Q4H PRN PRN Reason: Pain Last Admin: 12/29/16 04:00 Dose: 2 tab Admin: 12/28/16 21:12 Dose: 2 tab Admin: 12/28/16 18:03 Dose: 2 tab Admin: 12/28/16 13:18 Dose: 2 tab Admin: 12/28/16 08:43 Dose: 2 tab Admin: 12/28/16 03:09 Dose: 2 tab Admin: 12/27/16 22:52 Dose: 1 tab Admin: 12/27/16 21:07 Dose: 1 tab Pantoprazole Sodium (Protonix) 40 mg PO BID [facility] Last Admin: 12/28/16 20:49 Dose: 40 mg Admin: 12/28/16 08:41 Dose: 40 mg Admin: 12/27/16 21:06 Dose: 40 mg Dapagliflozin Propanediol [Farxiga ] 5 Mg 0 each PO DAILY [facility] Last Admin: 12/28/16 08:48 Dose: Not Given Cyanocobalamin/Fa/ (Pyridoxine 1 Tab) 0 each PO DAILY [facility] Last Admin: 12/28/16 12:00 Dose: Rosuvastatin Calcium (Crestor) 10 mg PO BEDTIME [facility] Last Admin: 12/28/16 20:49 Dose: 10 mg Admin: 12/27/16 21:05 Dose: 10 mg Senna (Senna) 8.6 mg PO BID PRN PRN Reason: Constipation Last Admin: 12/28/16 07:05 Dose: 8.6 mg Sodium Chloride (Saline Flush) 10 ml FLUSH ASDIRECTED PRN PRN Reason: Keep Vein Open - Assessment Assessment (Free Text/Narrative):: POD#2 - right TKA - Plan Plan (Free Text/Narrative):: 1. Discharge to home today with . 2. The pt has been cleared by Hospitalist service and has met inpatient therapy goals. 3. Eliquis BID. Frequent mobility. TEDs. 4. Outpatient P.T. The pt's case has been discussed with Dr. Meyers.
--- NOTE | 2016-12-29 07:06 | PCM.DCSUM1 ---
Discharge Summary - Hospital Course Brief History: Shaka is a 66 yo male who underwent right TKA with Dr. Meyers on 12-27-2016. The procedure was completed under spinal anesthesia with MAC. The pt tolerated the procedure well and was admitted to the Medical-Surgical Unit. Medical management was provided by the Hospitalist service. The pt's blood sugars were closely monitored. The pt's Hgb on POD#1 was 11.7. On POD#1, Eliquis 2.5mg PO BID was initiated for VTE prophylaxis. SCDs and TEDs were also ordered. A Mepilex dressing was placed at the incision site at the time of surgery and remained clean and dry. The pt participated in P.T. and O.T. The pt was allowed to WBAT and used a FWW for mobility. On POD#2, the pt was deemed appropriate to discharge to home with his . - Discharge Data Discharge Date: 12/29/16 Discharge Disposition: Home, Self-Care 01 Condition: Good - Patient Summary/Data Consults: Consultations 12/27/16 06:51 Consult to Physician [CONS] Routine OT Evaluation and Treatment [CONS] Routine 12/27/16 06:55 PT Evaluation and Treatment [CONS] Routine - Patient Instructions Diet: Usual Diet as Tolerated Activity: Apply Ice, As Tolerated, Elevate Extremity, Full Weight Bearing Driving: Do Not Drive Showering/Bathing: May Shower Wound/Incision Care: Keep Operative Site/Wound Site Clean and Dry, Do NOT Change Dressing Notify Provider of: Fever, Increased Pain, Swelling and Redness, Drainage, Nausea and/or Vomiting Other/Special Instructions: Please get up and moving around every hour while awake. This helps to prevent blood clots. Please take the Eliquis blood thinner medication twice daily - this also helps to prevent blood clots. Please wear the JUAN ANTONIO hose during the day and you may remove them at night. Please schedule for P.T. Complete the P.T. exercises and stretches that were instructed in the Hospital. Please use the pain medication as needed. The medication may cause drowsiness and/or constipation. You could use a stool softener like docusate sodium or Colace 100mg twice daily and/or a laxative like polyethylene glycol or Miralax daily for constipation. Contact your primary care provider for further instructions if you are constipated. Please schedule an appointment with your primary care provider for 'routine post-op care'. Because of your history of GI bleed and anemia, your hemoglobin will need to be closely monitored. Use the incentive spirometer often. Please place ice to the knee often. Please elevate the limb to decrease swelling. Keep the Mepilex dressing in place until follow-up. Please call [phone] with questions or concerns. - Discharge Plan Home Medications: Home Meds Metoprolol Succinate [Toprol XL 50mg] 50 mg PO BEDTIME 02/23/16 [History] atorvaSTATin [Lipitor] 40 mg PO BEDTIME 02/23/16 [History] Aspirin [Ecotrin] 81 mg PO DAILY 12/26/16 [History] Cyanocobalamin/FA/Pyridoxine [Folbic] 1 tab PO DAILY 12/26/16 [History] Dapagliflozin Propanediol [Farxiga] 5 mg PO DAILY 12/26/16 [History] Exenatide Microspheres [Bydureon] 2 mg SQ Q14D 12/26/16 [History] Ferrous Sulfate [Iron] 325 mg PO DAILY 12/26/16 [History] Gluc Gilliam Dipo Ch/Tigre Gilliam/C/Kurt [Glucosamine Chondroitin Caplet] 1 tab PO DAILY 12/26/16 [History] Lisinopril [Lisinopril] 5 mg PO DAILY 12/26/16 [History] Meclizine HCl 25 mg PO QID PRN 12/26/16 [History] Multivitamin with Minerals [Multiple Vitamin] 1 tab PO DAILY 12/26/16 [History] [place]-3/DHA/Epa/Fish Oil [Fish Oil 1,000 mg Softgel] 1,000 mg PO DAILY 12/26/16 [History] Pantoprazole Sodium [Protonix] 40 mg PO BID 12/26/16 [History] glipiZIDE [Glipizide ER] 2.5 mg PO DAILY 12/26/16 [History] metFORMIN HCl [Metformin HCl] 1,000 mg PO BID 12/26/16 [History] Patient Handouts: Total Knee Replacement, Care After, [id number], Hand Washing, [id number], Total Knee Replacement, [id number], Surgical Site Infections FAQs - [facility] - Patient Data Vitals - Most Recent: Last Vital Signs Temp 98.2 F 12/29/16 03:20 Pulse 72 12/29/16 03:20 Resp 18 12/29/16 03:20 BP 112/71 12/29/16 03:20 Pulse Ox 95 12/29/16 03:20 Weight - Most Recent: 241 lb 8 oz I&O - Last 24 hours: Intake & Output 12/28/16 12/29/16 12/29/16 22:59 06:59 14:59 Intake Total 1030 500 Output Total 1300 950 Balance -270 -450 Lab Results - Last 24 hrs: Laboratory Results - last 24 hr 12/28/16 12/28/16 12/28/16 Range/Units 06:45 06:45 11:43 WBC 12.83 H (4.23-9.07) K/mm3 RBC 4.67 (4.63-6.08) M/mm3 Hgb 11.7 L (13.7-17.5) gm/L Hct 37.5 L (40.1-51.0) % MCV 80.3 (79.0-92.2) fl MCH 25.1 L (25.7-32.2) pg MCHC 31.2 L (32.2-35.5) g/dl RDW Std Deviation 45.2 H (35.1-43.9) fL Plt Count 240 (163-337) K/mm3 MPV 10.7 (9.4-12.3) fl Sodium 136 (136-145) mEq/L Potassium 4.3 (3.5-5.1) mEq/L Chloride 100 (98-107) mEq/L Carbon Dioxide 25 (21-32) mEq/L Anion Gap 15.3 H (5-15) BUN 21 H (7-18) mg/dL Creatinine 1.1 (0.7-1.3) mg/dL Est Cr Clr Drug Dosing 63.91 mL/min Estimated GFR (MDRD) > 60 (>60) mL/min BUN/Creatinine Ratio 19.1 H (14-18) Glucose 210 H (80-115) mg/dL POC Glucose 235 H (80-115) mg/dL Calcium 9.0 (8.5-10.1) mg/dL Total Bilirubin 1.1 H (0.2-1.0) mg/dL AST 29 (15-37) U/L ALT 35 (16-63) U/L Alkaline Phosphatase 68 (46-116) U/L Total Protein 7.2 (6.4-8.2) g/dl Albumin 3.3 L (3.4-5.0) g/dl Globulin 3.9 gm/dL Albumin/Globulin Ratio 0.9 L (1-2) 12/28/16 12/28/16 12/29/16 Range/Units 17:05 20:50 06:15 WBC (4.23-9.07) K/mm3 RBC (4.63-6.08) M/mm3 Hgb (13.7-17.5) gm/L Hct (40.1-51.0) % MCV (79.0-92.2) fl MCH (25.7-32.2) pg MCHC (32.2-35.5) g/dl RDW Std Deviation (35.1-43.9) fL Plt Count (163-337) K/mm3 MPV (9.4-12.3) fl Sodium (136-145) mEq/L Potassium (3.5-5.1) mEq/L Chloride (98-107) mEq/L Carbon Dioxide (21-32) mEq/L Anion Gap (5-15) BUN (7-18) mg/dL Creatinine (0.7-1.3) mg/dL Est Cr Clr Drug Dosing mL/min Estimated GFR (MDRD) (>60) mL/min BUN/Creatinine Ratio (14-18) Glucose (80-115) mg/dL POC Glucose 244 H 201 H 171 H (80-115) mg/dL Calcium (8.5-10.1) mg/dL Total Bilirubin (0.2-1.0) mg/dL AST (15-37) U/L ALT (16-63) U/L Alkaline Phosphatase (46-116) U/L Total Protein (6.4-8.2) g/dl Albumin (3.4-5.0) g/dl Globulin gm/dL Albumin/Globulin Ratio (1-2) Med Orders - Current: Current Medications Apixaban (Eliquis) 2.5 mg PO Q12H [facility] Last Admin: 12/28/16 20:48 Dose: 2.5 mg Aspirin (Halfprin) 81 mg PO DAILY [facility] Last Admin: 12/28/16 08:39 Dose: 81 mg Bisacodyl (Dulcolax) 5 mg PO DAILY PRN PRN Reason: Constipation Diphenhydramine HCl (Benadryl) 25 mg IVPUSH Q4H PRN PRN Reason: Nausea Last Admin: 12/29/16 06:04 Dose: 25 mg Docusate Sodium (Colace) 100 mg PO BID [facility] Last Admin: 12/28/16 20:47 Dose: 100 mg Ferrous Sulfate (Ferrous Sulfate) 325 mg PO DAILY [facility] Last Admin: 12/28/16 08:41 Dose: 325 mg Fish Oil (Fish Oil) 1 gm PO DAILY [facility] Last Admin: 12/28/16 08:41 Dose: 1 gm Glipizide (Glucotrol Xl) 2.5 mg PO DAILY [facility] Last Admin: 12/28/16 08:56 Dose: Not Given Insulin Aspart (Novolog) 0 unit SUBCUT QIDACANDBED [facility] PRN Reason: Protocol Last Admin: 12/29/16 06:59 Dose: 1 unit Lisinopril (Prinivil) 5 mg PO DAILY [facility] Last Admin: 12/28/16 08:43 Dose: 5 mg Magnesium Hydroxide (Milk Of Magnesia) 30 ml PO BID PRN PRN Reason: Constipation Meclizine HCl (Antivert) 25 mg PO QID PRN PRN Reason: Dizziness Metoprolol Succinate (Toprol Xl) 50 mg PO DAILY [facility] Last Admin: 12/28/16 08:41 Dose: 50 mg Morphine Sulfate (Morphine) 2 mg IVPUSH Q2H PRN PRN Reason: Breakthrough Pain Last Admin: 12/28/16 11:17 Dose: 2 mg Multivitamins (Thera) 1 each PO DAILY [facility] Last Admin: 12/28/16 08:38 Dose: 1 each Ondansetron HCl (Zofran) 4 mg IVPUSH Q6H PRN PRN Reason: Nausea/Vomiting Last Admin: 12/28/16 08:12 Dose: 4 mg Oxycodone/Acetaminophen (Percocet 325-5 Mg) 1 - 2 tab PO Q4H PRN PRN Reason: Pain Last Admin: 12/29/16 04:00 Dose: 2 tab Pantoprazole Sodium (Protonix) 40 mg PO BID [facility] Last Admin: 12/28/16 20:49 Dose: 40 mg Dapagliflozin Propanediol [Farxiga ] 5 Mg 0 each PO DAILY [facility] Last Admin: 12/28/16 08:48 Dose: Not Given Cyanocobalamin/Fa/ (Pyridoxine 1 Tab) 0 each PO DAILY [facility] Last Admin: 12/28/16 12:00 Dose: Not Given Rosuvastatin Calcium (Crestor) 10 mg PO BEDTIME [facility] Last Admin: 12/28/16 20:49 Dose: 10 mg Senna (Senna) 8.6 mg PO BID PRN PRN Reason: Constipation Last Admin: 12/28/16 07:05 Dose: 8.6 mg Sodium Chloride (Saline Flush) 10 ml FLUSH ASDIRECTED PRN PRN Reason: Keep Vein Open Discontinued Medications Bupivacaine HCl (Marcaine 0.25%) Confirm Administered Dose 30 ml .ROUTE .STK- MED ONE Stop: 12/27/16 06:06 Last Admin: 12/27/16 08:39 Dose: 30 ml Cefazolin Sodium (Ancef) Confirm Administered Dose 2 gm .ROUTE .STK-MED ONE Stop: 12/27/16 06:06 Cefazolin Sodium (Ancef) Confirm Administered Dose 2 gm .ROUTE .STK-MED ONE Stop: 12/27/16 07:29 Last Admin: 12/27/16 08:32 Dose: 2 gm Morphine Sulfate 8 mg/Epinephrine HCl 0.3 mg/Cefuroxime Sodium 750 mg/Ketorolac Tromethamine 30 mg/Sodium Chloride 27.9 ml 0 mg .XX ONETIME ONE Stop: 12/27/16 07:46 Last Admin: 12/27/16 08:37 Dose: 788.3 mg Diphenhydramine HCl (Benadryl) 25 mg IVPUSH Q6H PRN PRN Reason: Itching Stop: 12/27/16 18:00 Last Admin: 12/27/16 10:54 Dose: 25 mg Diphenhydramine HCl (Benadryl) 25 mg IVPUSH ONETIME ONE Stop: 12/27/16 11:39 Last Admin: 12/27/16 11:47 Dose: 25 mg Famotidine (Pepcid) 20 mg PO BID [facility] Famotidine (Pepcid) 20 mg IVPUSH ONETIME ONE Stop: 12/27/16 11:40 Last Admin: 12/27/16 11:46 Dose: 20 mg Fentanyl (Sublimaze) Confirm Administered Dose 100 mcg .ROUTE .STK-MED ONE Stop: 12/27/16 07:30 Fentanyl (Sublimaze) 50 mcg IVPUSH Q5M PRN PRN Reason: PAIN Stop: 12/27/16 18:00 Lactated Ringer's (Ringers, Lactated) 1,000 mls @ 125 mls/hr IV ASDIRECTED [facility] Last Admin: 12/27/16 06:15 Dose: 125 mls/hr Cefazolin Sodium/Dextrose 2 gm (/ Premix) 50 mls @ 100 mls/hr IV Q8H [facility] Stop: 12/28/16 07:59 Last Admin: 12/28/16 07:37 Dose: 100 mls/hr Lactated Ringer's (Ringers, Lactated) Confirm Administered Dose 1,000 mls @ as directed .ROUTE .STK-MED ONE Stop: 12/27/16 08:20 Lactated Ringer's (Ringers, Lactated) Confirm Administered Dose 1,000 mls @ as directed .ROUTE .STK-MED ONE Stop: 12/27/16 08:46 Iodine (Iodine 2% Mild Tincture) Confirm Administered Dose 30 ml .ROUTE .STK- MED ONE Stop: 12/27/16 06:06 Last Admin: 12/27/16 08:28 Dose: 18 ml Lidocaine/Sodium Bicarbonate (Buffered Lidocaine 1% In Ns 8.4%) 0.25 ml IV ONETIME PRN PRN Reason: Prior to IV Start Last Admin: 12/27/16 06:14 Dose: 0.25 ml Metformin HCl (Glucophage) 1,000 mg PO BID [facility] Metoprolol Tartrate (Lopressor) 5 mg IVPUSH ONETIME ONE Stop: 12/27/16 22:08 Last Admin: 12/27/16 22:33 Dose: 5 mg Midazolam HCl (Versed 1 Mg/Ml) Confirm Administered Dose 2 mg .ROUTE .STK-MED ONE Stop: 12/27/16 07:29 Morphine Sulfate (Duramorph Pf) Confirm Administered Dose 10 mg .ROUTE .STK-MED ONE Stop: 12/27/16 07:29 Non-Formulary Medication (Exenatide Microspheres [Bydureon]) 2 mg SQ Q14D [facility] Last Admin: 12/27/16 12:57 Dose: Not Given Phenylephrine HCl (Mejia-Synephrine) Confirm Administered Dose 10 mg .ROUTE .STK- MED ONE Stop: 12/27/16 08:18 Propofol (Diprivan 20 Ml) Confirm Administered Dose 200 mg .ROUTE .STK-MED ONE Stop: 12/27/16 07:30 Propofol (Diprivan 20 Ml) Confirm Administered Dose 200 mg .ROUTE .STK-MED ONE Stop: 12/27/16 08:15 Propofol (Diprivan 20 Ml) Confirm Administered Dose 200 mg .ROUTE .STK-MED ONE Stop: 12/27/16 08:43 Scopolamine (Transderm-Scop) 1.5 mg TRDERM Q72H ONE Stop: 12/27/16 00:01 Last Admin: 12/27/16 12:48 Dose: Not Given Scopolamine (Transderm-Scop) 1.5 mg TRDERM Q72H ONE Stop: 12/27/16 07:16 Last Admin: 12/27/16 07:17 Dose: 1.5 mg Tranexamic Acid (Cyklokapron) Confirm Administered Dose 1,000 mg .ROUTE .STK- MED ONE Stop: 12/27/16 06:06 Last Admin: 12/27/16 08:41 Dose: 1,000 mg Vancomycin HCl (Vancomycin) 1 gm .XX ONETIME ONE Stop: 12/27/16 11:01 Last Admin: 12/27/16 08:40 Dose: 1 gm *Q Meaningful Use (DIS) - VTE *Q VTE Criteria *Q: - Stroke *Q Stroke Criteria *Q: - AMI *Q AMI Criteria *Q:
--- NOTE | 2016-12-29 07:06 | PCM.CONSN ---
- General Info Date of Service: 12/29/16 Admission Dx/Problem (Free Text): Shaka is a 66yo male s/p Rt TKA with Dr. Meyers; POD #2 Slept better last night. Confusion is improved. Pain is better. No further n/v, tolerating meals now. Working with therapies. Plans for DC home today with . PCP is Tasneem Green PA-C in [place] He is Full Code status. Functional Status: Reports: Pain Controlled, Tolerating Diet, Ambulating, Urinating, Incentive Spirometry. Denies: New Symptoms - Review of Systems General: Reports: No Symptoms HEENT: Reports: No Symptoms Pulmonary: Reports: No Symptoms Cardiovascular: Reports: No Symptoms Gastrointestinal: Reports: No Symptoms Genitourinary: Reports: No Symptoms Musculoskeletal: Reports: Leg Pain Skin: Reports: No Symptoms Neurological: Reports: Confusion (intermittent but significantly improved) - Patient Data Vitals - Most Recent: Last Vital Signs Temp 98.2 F 12/29/16 03:20 Pulse 72 12/29/16 03:20 Resp 18 12/29/16 03:20 BP 112/71 12/29/16 03:20 Pulse Ox 95 12/29/16 03:20 Weight - Most Recent: 241 lb 8 oz I&O - Last 24 Hours: Intake & Output 12/28/16 12/29/16 12/29/16 22:59 06:59 14:59 Intake Total 1030 500 Output Total 1300 950 Balance -270 -450 Lab Results Last 24 Hours: Laboratory Results - last 24 hr 12/28/16 12/28/16 12/28/16 Range/Units 06:45 06:45 11:43 WBC 12.83 H (4.23-9.07) K/mm3 RBC 4.67 (4.63-6.08) M/mm3 Hgb 11.7 L (13.7-17.5) gm/L Hct 37.5 L (40.1-51.0) % MCV 80.3 (79.0-92.2) fl MCH 25.1 L (25.7-32.2) pg MCHC 31.2 L (32.2-35.5) g/dl RDW Std Deviation 45.2 H (35.1-43.9) fL Plt Count 240 (163-337) K/mm3 MPV 10.7 (9.4-12.3) fl Sodium 136 (136-145) mEq/L Potassium 4.3 (3.5-5.1) mEq/L Chloride 100 (98-107) mEq/L Carbon Dioxide 25 (21-32) mEq/L Anion Gap 15.3 H (5-15) BUN 21 H (7-18) mg/dL Creatinine 1.1 (0.7-1.3) mg/dL Est Cr Clr Drug Dosing 63.91 mL/min Estimated GFR (MDRD) > 60 (>60) mL/min BUN/Creatinine Ratio 19.1 H (14-18) Glucose 210 H (80-115) mg/dL POC Glucose 235 H (80-115) mg/dL Calcium 9.0 (8.5-10.1) mg/dL Total Bilirubin 1.1 H (0.2-1.0) mg/dL AST 29 (15-37) U/L ALT 35 (16-63) U/L Alkaline Phosphatase 68 (46-116) U/L Total Protein 7.2 (6.4-8.2) g/dl Albumin 3.3 L (3.4-5.0) g/dl Globulin 3.9 gm/dL Albumin/Globulin Ratio 0.9 L (1-2) 12/28/16 12/28/16 12/29/16 Range/Units 17:05 20:50 06:15 WBC (4.23-9.07) K/mm3 RBC (4.63-6.08) M/mm3 Hgb (13.7-17.5) gm/L Hct (40.1-51.0) % MCV (79.0-92.2) fl MCH (25.7-32.2) pg MCHC (32.2-35.5) g/dl RDW Std Deviation (35.1-43.9) fL Plt Count (163-337) K/mm3 MPV (9.4-12.3) fl Sodium (136-145) mEq/L Potassium (3.5-5.1) mEq/L Chloride (98-107) mEq/L Carbon Dioxide (21-32) mEq/L Anion Gap (5-15) BUN (7-18) mg/dL Creatinine (0.7-1.3) mg/dL Est Cr Clr Drug Dosing mL/min Estimated GFR (MDRD) (>60) mL/min BUN/Creatinine Ratio (14-18) Glucose (80-115) mg/dL POC Glucose 244 H 201 H 171 H (80-115) mg/dL Calcium (8.5-10.1) mg/dL Total Bilirubin (0.2-1.0) mg/dL AST (15-37) U/L ALT (16-63) U/L Alkaline Phosphatase (46-116) U/L Total Protein (6.4-8.2) g/dl Albumin (3.4-5.0) g/dl Globulin gm/dL Albumin/Globulin Ratio (1-2) Med Orders - Current: Current Medications Apixaban (Eliquis) 2.5 mg PO Q12H [facility] Last Admin: 12/28/16 20:48 Dose: 2.5 mg Aspirin (Halfprin) 81 mg PO DAILY [facility] Last Admin: 12/28/16 08:39 Dose: 81 mg Bisacodyl (Dulcolax) 5 mg PO DAILY PRN PRN Reason: Constipation Diphenhydramine HCl (Benadryl) 25 mg IVPUSH Q4H PRN PRN Reason: Nausea Last Admin: 12/29/16 06:04 Dose: 25 mg Docusate Sodium (Colace) 100 mg PO BID [facility] Last Admin: 12/28/16 20:47 Dose: 100 mg Ferrous Sulfate (Ferrous Sulfate) 325 mg PO DAILY [facility] Last Admin: 12/28/16 08:41 Dose: 325 mg Fish Oil (Fish Oil) 1 gm PO DAILY [facility] Last Admin: 12/28/16 08:41 Dose: 1 gm Glipizide (Glucotrol Xl) 2.5 mg PO DAILY [facility] Last Admin: 12/28/16 08:56 Dose: Not Given Insulin Aspart (Novolog) 0 unit SUBCUT QIDACANDBED [facility] PRN Reason: Protocol Last Admin: 12/29/16 06:59 Dose: 1 unit Lisinopril (Prinivil) 5 mg PO DAILY [facility] Last Admin: 12/28/16 08:43 Dose: 5 mg Magnesium Hydroxide (Milk Of Magnesia) 30 ml PO BID PRN PRN Reason: Constipation Meclizine HCl (Antivert) 25 mg PO QID PRN PRN Reason: Dizziness Metoprolol Succinate (Toprol Xl) 50 mg PO DAILY [facility] Last Admin: 12/28/16 08:41 Dose: 50 mg Morphine Sulfate (Morphine) 2 mg IVPUSH Q2H PRN PRN Reason: Breakthrough Pain Last Admin: 12/28/16 11:17 Dose: 2 mg Multivitamins (Thera) 1 each PO DAILY [facility] Last Admin: 12/28/16 08:38 Dose: 1 each Ondansetron HCl (Zofran) 4 mg IVPUSH Q6H PRN PRN Reason: Nausea/Vomiting Last Admin: 12/28/16 08:12 Dose: 4 mg Oxycodone/Acetaminophen (Percocet 325-5 Mg) 1 - 2 tab PO Q4H PRN PRN Reason: Pain Last Admin: 12/29/16 04:00 Dose: 2 tab Pantoprazole Sodium (Protonix) 40 mg PO BID [facility] Last Admin: 12/28/16 20:49 Dose: 40 mg Dapagliflozin Propanediol [Farxiga ] 5 Mg 0 each PO DAILY [facility] Last Admin: 12/28/16 08:48 Dose: Not Given Cyanocobalamin/Fa/ (Pyridoxine 1 Tab) 0 each PO DAILY [facility] Last Admin: 12/28/16 12:00 Dose: Not Given Rosuvastatin Calcium (Crestor) 10 mg PO BEDTIME [facility] Last Admin: 12/28/16 20:49 Dose: 10 mg Senna (Senna) 8.6 mg PO BID PRN PRN Reason: Constipation Last Admin: 12/28/16 07:05 Dose: 8.6 mg Sodium Chloride (Saline Flush) 10 ml FLUSH ASDIRECTED PRN PRN Reason: Keep Vein Open Discontinued Medications Bupivacaine HCl (Marcaine 0.25%) Confirm Administered Dose 30 ml .ROUTE .STK- MED ONE Stop: 12/27/16 06:06 Last Admin: 12/27/16 08:39 Dose: 30 ml Cefazolin Sodium (Ancef) Confirm Administered Dose 2 gm .ROUTE .STK-MED ONE Stop: 12/27/16 06:06 Cefazolin Sodium (Ancef) Confirm Administered Dose 2 gm .ROUTE .STK-MED ONE Stop: 12/27/16 07:29 Last Admin: 12/27/16 08:32 Dose: 2 gm Morphine Sulfate 8 mg/Epinephrine HCl 0.3 mg/Cefuroxime Sodium 750 mg/Ketorolac Tromethamine 30 mg/Sodium Chloride 27.9 ml 0 mg .XX ONETIME ONE Stop: 12/27/16 07:46 Last Admin: 12/27/16 08:37 Dose: 788.3 mg Diphenhydramine HCl (Benadryl) 25 mg IVPUSH Q6H PRN PRN Reason: Itching Stop: 12/27/16 18:00 Last Admin: 12/27/16 10:54 Dose: 25 mg Diphenhydramine HCl (Benadryl) 25 mg IVPUSH ONETIME ONE Stop: 12/27/16 11:39 Last Admin: 12/27/16 11:47 Dose: 25 mg Famotidine (Pepcid) 20 mg PO BID [facility] Famotidine (Pepcid) 20 mg IVPUSH ONETIME ONE Stop: 12/27/16 11:40 Last Admin: 12/27/16 11:46 Dose: 20 mg Fentanyl (Sublimaze) Confirm Administered Dose 100 mcg .ROUTE .STK-MED ONE Stop: 12/27/16 07:30 Fentanyl (Sublimaze) 50 mcg IVPUSH Q5M PRN PRN Reason: PAIN Stop: 12/27/16 18:00 Lactated Ringer's (Ringers, Lactated) 1,000 mls @ 125 mls/hr IV ASDIRECTED [facility] Last Admin: 12/27/16 06:15 Dose: 125 mls/hr Cefazolin Sodium/Dextrose 2 gm (/ Premix) 50 mls @ 100 mls/hr IV Q8H [facility] Stop: 12/28/16 07:59 Last Admin: 12/28/16 07:37 Dose: 100 mls/hr Lactated Ringer's (Ringers, Lactated) Confirm Administered Dose 1,000 mls @ as directed .ROUTE .STK-MED ONE Stop: 12/27/16 08:20 Lactated Ringer's (Ringers, Lactated) Confirm Administered Dose 1,000 mls @ as directed .ROUTE .STK-MED ONE Stop: 12/27/16 08:46 Iodine (Iodine 2% Mild Tincture) Confirm Administered Dose 30 ml .ROUTE .STK- MED ONE Stop: 12/27/16 06:06 Last Admin: 12/27/16 08:28 Dose: 18 ml Lidocaine/Sodium Bicarbonate (Buffered Lidocaine 1% In Ns 8.4%) 0.25 ml IV ONETIME PRN PRN Reason: Prior to IV Start Last Admin: 12/27/16 06:14 Dose: 0.25 ml Metformin HCl (Glucophage) 1,000 mg PO BID JERONIMO Metoprolol Tartrate (Lopressor) 5 mg IVPUSH ONETIME ONE Stop: 12/27/16 22:08 Last Admin: 12/27/16 22:33 Dose: 5 mg Midazolam HCl (Versed 1 Mg/Ml) Confirm Administered Dose 2 mg .ROUTE .STK-MED ONE Stop: 12/27/16 07:29 Morphine Sulfate (Duramorph Pf) Confirm Administered Dose 10 mg .ROUTE .STK-MED ONE Stop: 12/27/16 07:29 Non-Formulary Medication (Exenatide Microspheres [Bydureon]) 2 mg SQ Q14D JERONIMO Last Admin: 12/27/16 12:57 Dose: Not Given Phenylephrine HCl (Mejia-Synephrine) Confirm Administered Dose 10 mg .ROUTE .STK- MED ONE Stop: 12/27/16 08:18 Propofol (Diprivan 20 Ml) Confirm Administered Dose 200 mg .ROUTE .STK-MED ONE Stop: 12/27/16 07:30 Propofol (Diprivan 20 Ml) Confirm Administered Dose 200 mg .ROUTE .STK-MED ONE Stop: 12/27/16 08:15 Propofol (Diprivan 20 Ml) Confirm Administered Dose 200 mg .ROUTE .STK-MED ONE Stop: 12/27/16 08:43 Scopolamine (Transderm-Scop) 1.5 mg TRDERM Q72H ONE Stop: 12/27/16 00:01 Last Admin: 12/27/16 12:48 Dose: Not Given Scopolamine (Transderm-Scop) 1.5 mg TRDERM Q72H ONE Stop: 12/27/16 07:16 Last Admin: 12/27/16 07:17 Dose: 1.5 mg Tranexamic Acid (Cyklokapron) Confirm Administered Dose 1,000 mg .ROUTE .STK- MED ONE Stop: 12/27/16 06:06 Last Admin: 12/27/16 08:41 Dose: 1,000 mg Vancomycin HCl (Vancomycin) 1 gm .XX ONETIME ONE Stop: 12/27/16 11:01 Last Admin: 12/27/16 08:40 Dose: 1 gm - Exam Quality Assessment: Supplemental Oxygen (weaned as of this 0600- doing well thus far), DVT Prophylaxis General: Alert, Cooperative, No Acute Distress HEENT: Pupils Equal, EOMI, Mucous Membr. Moist/[place] Neck: Supple Lungs: Clear to Auscultation, Normal Respiratory Effort, Decreased Breath Sounds (bases) Cardiovascular: Regular Rate, Regular Rhythm GI/Abdominal Exam: Normal Bowel Sounds, Soft, Non-Tender (Male) Exam: Deferred Extremities: Other (teds/SCD's, ice to rt knee, CMS distally is + and = bilat) Peripheral Pulses: 2+: Dorsalis Pedis (L), Dorsalis Pedis (R) Neurological: No New Focal Deficit, Other (confusion is much better today; more clear.) Psy/Mental Status: Alert Consult PN Assessment/Plan POD#: 2 Procedures: Procedures ANTINUCLEAR ANTIBODIES (07/08/14) ASSAY IGA/IGD/IGG/IGM EACH (07/08/14) ASSAY OF BLOOD LIPOPROTEIN (12/12/14) ASSAY OF CERULOPLASMIN (05/15/14) ASSAY OF FERRITIN (05/15/14) ASSAY OF IRON (05/15/14) ASSAY OF PREALBUMIN (12/15/16) ASSAY OF TRANSFERRIN (05/15/14) C-REACTIVE PROTEIN (05/05/14) CARDIAC REHAB/MONITOR (03/01/16) CHEST X-RAY 2VW FRONTAL&LATL (12/15/16) COMPLETE CBC AUTOMATED (05/07/16) COMPLETE CBC W/AUTO DIFF WBC (05/05/14) COMPREHEN METABOLIC PANEL (05/07/16) DXA BONE DENSITY AXIAL (12/22/16) EMERGENCY DEPT VISIT (05/05/14) GLYCOSYLATED HEMOGLOBIN TEST (05/07/16) HEP B SURFACE ANTIBODY (05/15/14) HEPATIC FUNCTION PANEL (05/15/14) HEPATITIS B SURFACE AG IA (05/15/14) HEPATITIS C AB TEST (05/15/14) IMMUNOASSAY NONANTIBODY (05/15/14) INFLUENZA ASSAY W/OPTIC (05/05/14) MICROALBUMIN QUANTITATIVE (05/07/16) PROTHROMBIN TIME (12/15/16) ROUTINE VENIPUNCTURE (05/07/16) THROMBOPLASTIN TIME PARTIAL (12/15/16) (1) S/P total knee arthroplasty SNOMED Code(s): 2295056279831, 8301615053944 Code(s): Z96.659 - PRESENCE OF UNSPECIFIED ARTIFICIAL KNEE JOINT Priority: High Current Visit: Yes Qualifiers: Laterality: right Qualified Code(s): Z96.651 - Presence of right artificial knee joint (2) Osteoarthritis SNOMED Code(s): 184262935 Code(s): M19.90 - UNSPECIFIED OSTEOARTHRITIS, UNSPECIFIED SITE Priority: High Current Visit: Yes Qualifiers: Osteoarthritis location: knee Osteoarthritis type: primary Laterality: right Qualified Code(s): M17.11 - Unilateral primary osteoarthritis, right knee (3) Hx of gastrointestinal hemorrhage SNOMED Code(s): 378895755 Code(s): Z87.19 - PERSONAL HISTORY OF OTHER DISEASES OF THE DIGESTIVE SYSTEM Priority: High Current Visit: No (4) HLD (hyperlipidemia) SNOMED Code(s): 75971126 Code(s): E78.5 - HYPERLIPIDEMIA, UNSPECIFIED Priority: Medium Current Visit: No Qualifiers: Hyperlipidemia type: unspecified Qualified Code(s): E78.5 - Hyperlipidemia , unspecified (5) RAINER on CPAP SNOMED Code(s): 61930436 Code(s): G47.33 - OBSTRUCTIVE SLEEP APNEA (ADULT) (PEDIATRIC); Z99.89 - DEPENDENCE ON OTHER ENABLING MACHINES AND DEVICES Priority: Medium Current Visit: No (6) Interstitial lung disease SNOMED Code(s): 690397605 Code(s): J84.9 - INTERSTITIAL PULMONARY DISEASE, UNSPECIFIED Priority: Medium Current Visit: No (7) Anemia SNOMED Code(s): 163066528 Code(s): D64.9 - ANEMIA, UNSPECIFIED Priority: Medium Current Visit: Yes Qualifiers: Anemia type: unspecified type Qualified Code(s): D64.9 - Anemia, unspecified (8) CAD (coronary artery disease) of artery bypass graft SNOMED Code(s): 538133917, 234053044, 211616485 Code(s): I25.810 - ATHEROSCLEROSIS OF CABG W/O ANGINA PECTORIS Priority: Medium Current Visit: No (9) Hypertension SNOMED Code(s): 64115025 Code(s): I10 - ESSENTIAL (PRIMARY) HYPERTENSION Priority: Medium Current Visit: No Qualifiers: Hypertension type: unspecified Qualified Code(s): I10 - Essential (primary ) hypertension (10) Type 2 diabetes mellitus SNOMED Code(s): 93587377 Code(s): E11.9 - TYPE 2 DIABETES MELLITUS WITHOUT COMPLICATIONS Priority: Medium Current Visit: Yes Qualifiers: Diabetes mellitus complication status: without complication Diabetes mellitus penitentiary insulin use: without termite renewal inspector use Qualified Code(s): E11.9 - Type 2 diabetes mellitus without complications Problem List Initiated/Reviewed/Updated: Yes My Orders Last 24 Hours: My Active Orders 12/28/16 09:00 Fish Oil/[place]-3 Fatty Acids [Fish Oil] 1 gm PO DAILY Patient's Own Medication [Ptom] 0 each PO DAILY 12/29/16 05:11 BASIC METABOLIC PANEL,BMP [CHEM] AM CBC WITH AUTO DIFF [HEME] AM Plan: I/P: S/P Rt TKA with Dr. Meyers, POD #2 -Pain management and DVT prophylax -PT/OT -RT/IS -Hgb 11.1 Recent GI Bleed within last 1-2 months -Discussed with Ortho, will DC on Eliquis; no s/s of bleeding at this time. -Follow hgb closely -GI prophylax, cont home PPI at BID Hypoxia---resolved; weaned of O2 this morning and maintaining. Intermittent confusion--improved today -Etiology: anesthesia vs ? underlying undiagnosed dementia -Cont to monitor -Up with assist at all times as is high fall risk with impulsive/compulsive behaviors and confusion. Chronic: Cont home meds except hold metformin for DM; can resume metformin tomorrow. CAD, S/P PCI and CABG HTN- stable HLD DM: Preop A1C good at 6.7, Hold metformin, Accuchecks and SSI coverage during hospital stay QID/AC and HS. Hx of anemia s/p GI bleed- cont iron supplement Interstitial lung disease- RT and IS postoperatively RAINER with home CPAP Other: PT/OT CM/SW for dc planning- OK for DC home with today from Hospitalist standpoint. Will recommend f/up with PCP within one week of discharge. Patient is Full Code status PCP is Tasneem Green at [facility]
[2016-12-29] MEDS: glipiZIDE 2.5 MG Tab.ER PO SCH (09:18)
[2016-12-29] MEDS: Multivitamins,Therapeutic Tab PO SCH (09:18)
[2016-12-29] MEDS: Apixaban 5 MG Tab PO SCH (09:18)
[2016-12-29] MEDS: Dapagliflozin Propanediol [Farxiga] 5 MG PO SCH (09:18)
[2016-12-29] MEDS: Ferrous Sulfate 325 MG Tab PO SCH (09:18)
[2016-12-29] MEDS: Docusate Sodium 100 MG Cap PO SCH (09:19)
[2016-12-29] MEDS: Pantoprazole 40 MG Tab.CR PO SCH (09:19)
[2016-12-29] MEDS: Aspirin 81 MG Tab.EC PO SCH (09:19)
[2016-12-29] MEDS: Fish Oil/Omega-3 Fatty Acids 1 Gm Cap PO SCH (09:19)
[2016-12-29] MEDS: Metoprolol Succinate 50 MG Tab.ER PO SCH (09:19)
[2016-12-29] MEDS: Lisinopril 5 MG Tab PO SCH (09:21)
[2016-12-29] MEDS: [UNRECOGNIZED DRUG - OTHER] PO SCH (09:23)
[2016-12-29] MEDS: CYANOCOBALAMIN PO SCH (09:23)
[2016-12-29] MEDS: PYRIDOXINE PO SCH (09:23)
[2016-12-29 15:05] VITALS: BP 143/75
--- NOTE | 2017-01-03 12:52 | PCM.OPNOTE ---
- General Post-Op/Procedure Note Date of Surgery/Procedure: 12/27/16 Operative Procedure(s): right total knee arthroplasty Pre Op Diagnosis: right knee osteoarthrosis Post-Op Diagnosis: Same Anesthesia Technique: Local, MAC, Spinal Primary Surgeon: Michael Meyers Anesthesia Provider: Darwin Carpenter Sas Developer: Mirna Cannon Sas Developer: Diana Spears EBL in mLs: 300 Complications: None Condition: Good
--- NOTE | 2017-01-03 13:41 | OR ---
DATE OF OPERATION: 12/27/2016 SURGEON: Michael Meyers MD OPERATION PERFORMED: Right total knee arthroplasty. PREOPERATIVE DIAGNOSIS: Right knee osteoarthrosis. POSTOPERATIVE DIAGNOSIS: Right knee osteoarthrosis. ANESTHESIA: Local MAC with spinal. ANESTHESIA PROVIDER: Darwin Carpenter CRNA ASSISTANTS: Mirna Cannon PA-C, and Diana Spears LPN, who assisted in retraction and closure throughout the case. ESTIMATED BLOOD LOSS: 300 mL. COMPLICATIONS: None. CONDITION: Stable. IMPLANTS: 1. Elvia size 5 press-fit PS femur. 2. Winston size 5 press-fit universal tibial baseplate. 3. Winston size 5, 9 mm PS X3 polyethylene. 4. Winston size 32 x 10 mm press-fit asymmetric patella. DESCRIPTION OF PROCEDURE: The patient was identified in the preop holding area. Proper site was marked and identified by the surgeon. The patient was taken back to the operating theater. After adequate anesthesia, the patient's right lower extremity had a nonsterile tourniquet applied and it was then sterilely prepped and draped in the usual sterile fashion. OR timeout was performed. The patient received 2 g IV Ancef. At this time, right lower extremity was exsanguinated. Tourniquet was insufflated to 300 mmHg. Standard medial parapatellar incision was made. Medial parapatellar arthrotomy was created. Deep fibers of the MCL were raised and anterior fat pad was resected. At this time, attention was turned to the patella. Patella measured 24, it was resected to a 14 for a 32 x 10 mm patella. Drill holes were then drilled and found to be in adequate position. The drill was then drilled in the distal femur and the intramedullary distal femoral cutting guide was then placed. 8 mm was resected off the distal femur and was found to be an adequate resection. Sizing guide was placed. It was found to be a size 5 press-fit PS femur that was shown on the implant record at the beginning of this dictation. The drill holes were drilled for the epicondylar axis using [place] line and epicondyles as reference. At this time, the 4-in - 1 cutting block was placed. An anterior posterior and anterior and posterior chamfer cuts were then completed. The correct size box cut was then placed and the box cut was completed and found to be an adequate resection. Attention was turned to the tibia. The posterior medial lateral retractors were placed. The extramedullary tibial guide was placed. It was placed in the old footprint of the ACL. It was aligned with the center of the ankle and 0 degrees of slope, 9 mm was then resected off the unaffected lateral side. There was found to be an acceptable reduction. At this time, posterior osteophytes were removed along with medial and lateral meniscus. A trial implant was placed with a correct sized tibia that was mentioned at the beginning of the dictation. A 9 mm trial spacer was placed. The patient's knee was brought through range of motion. The patella was tracking centrally and was stable to varus and valgus stress. Alignment was found to be roughly at 0 degrees. The tibia was stamped and drilled in proper rotation. The press fit tibial base plate was impacted into place. Next, the size 5 press-fit PS femur was impacted into place and the 9 mm PS X3 polyethylene was placed. The patient's knee was brought into full extension. The patella was then press fit in place at this time. Tourniquet was deflated. One liter dilute Betadine solution was irrigated through the knee along with 3 L of pulse lavage irrigation with Ancef. Periarticular injection was then completed. The patient's knee was brought through a range of motion. Once the cement had time to set up and it was found to be stable to varus valgus stress, the patella was tracking centrally with full range of motion. At this time, a #2 barbed suture was used for closure of the medial parapatellar arthrotomy. Topical tranexamic acid was placed. 2-0 Vicryl was used subcutaneously, a running 3-0 Monocryl was used subcuticularly. The patient tolerated the procedure well and was sent to the PACU in stable condition. MMZULY /[id number] [place]
== END 2016-12-29 17:30 | disposition home or self-care (01) | DRG 470 ==
LOC: JD.MS 06:07
PROVIDERS: ADMIT Orthopaedic Surgery; ATTEND Orthopaedic Surgery
PROC: 0SRC0J9 Replacement of Right Knee Joint with Synthetic Substitute, Cemented, Open Approach (ICD-10-PCS; principal; 2016-12-27)
DX: M17.11 Unilateral primary osteoarthritis, right knee (principal); I25.810 Atherosclerosis of coronary artery bypass graft(s) without angina pectoris; J84.9 Interstitial pulmonary disease, unspecified; Z87.19 Personal history of other diseases of the digestive system; E78.5 Hyperlipidemia, unspecified; G47.33 Obstructive sleep apnea (adult) (pediatric); D64.9 Anemia, unspecified; I10 Essential (primary) hypertension; Z95.5 Presence of coronary angioplasty implant and graft; E66.9 Obesity, unspecified; Z68.30 Body mass index [BMI] 30.0-30.9, adult; K76.0 Fatty (change of) liver, not elsewhere classified; Z88.8 Allergy status to other drugs, medicaments and biological substances; Z79.84 Long term (current) use of oral hypoglycemic drugs; Z79.82 Long term (current) use of aspirin; Z79.899 Other long term (current) drug therapy
CPT/HCPCS: 01402; 36415; 73560-26-RT; 73560-RT; 80048; 80053; 82962; 85025; 85027; 87641; 94762; 97110-GP; 97116-GP; 97161-GP; 97165-GO; 97530-GO; 97535-GO; 99231; 99232; 99252; A9270-GY; C1776; J0171; J0690; J0697; J1200; J1815-GY; J1885; J2250; J2270; J2370; J2405; J2704; J3010; J3370; J3490; J7120

== ENCOUNTER 2017-02-10 08:31 | Day surgery (SDC) | payer OTHER, MEDICARE ==
[~2017-02-10 08:31] MED LIST changes: -Iodine/Sodium Iodide 2% Tincture 30 ML Bottle ONE; -Scopolamine 1.5 MG Transdermal Patch TRDERM ONE; -ceFAZolin 1 GM Vial ONE
--- NOTE | 2017-02-10 09:04 | PCM.PREANE ---
Preanesthetic Assessment - Anesthesia/Transfusion/Family Hx Anesthesia History: Prior Anesthesia Without Reaction Family History of Anesthesia Reaction: No Transfusion History: No Prior Transfusion(s) - Review of Systems General: No Symptoms Pulmonary: No Symptoms, Other (RAINER, CPAP, interstitial lung disease) Cardiovascular: No Symptoms, Other (HTN, CABG, CAD, EF 65-70%, EKG sr with left anterior fas. block) Gastrointestinal: No Symptoms Neurological: Other (tingling in right foot ) Other: Reports: Diabetes (blood glucose 147), Liver Problems (non ETOH fatty liver disease) - Physical Assessment NPO Status Date: 02/09/17 NPO Status Time: 20:00 Pulse: 71 O2 Sat by Pulse Oximetry: 92 Respiratory Rate: 16 Blood Pressure: 138/80 Temperature: 36.3 C Weight: 100 kg ASA Class: 3 Mental Status: Alert & Oriented x3 Airway Class: Mallampati = 2 Dentition: Reports: Normal Dentition Thyro-Mental Finger Breadths: 3 Mouth Opening Finger Breadths: 3 ROM/Head Extension: Limited/Partial Lungs: Clear to Auscultation, Normal Respiratory Effort Cardiovascular: Regular Rate, Regular Rhythm - Allergies Allergies/Adverse Reactions: Allergies Allergy/AdvReac Type Severity Reaction Status Date / Time celecoxib [From Celebrex] AdvReac Indigestion Verified 02/09/17 14:53 - Blood Blood Available: No Product(s) Available: None - Anesthesia Plan Pre-Op Medication Ordered: None Beta Fausto: Metoprolol Med Last Dose Date: 02/10/17 Med Last Dose Time: 08:00 - Acknowledgements Anesthesia Type Planned: MAC Pt an Appropriate Candidate for the Planned Anesthesia: Yes Alternatives and Risks of Anesthesia Discussed w Pt/Guardian: Yes Pt/Guardian Understands and Agrees with Anesthesia Plan: Yes PreAnesthesia Questionnaire HEENT History: Reports: Other (See Below) Other HEENT History: WEARS GLASSES Cardiovascular History: Reports: Blood Clots/VTE/DVT, Bypass, CAD, High Cholesterol, Hypertension, SOB on Exertion, Other (See Below) Other Cardiovascular History: Afib during bypass surgery, but nothing since then Respiratory History: Reports: Sleep Apnea, Other (See Below) Other Respiratory History: USES CPAP AT NIGHT Gastrointestinal History: Reports: GERD, GI Bleed, Other (See Below) Other Gastrointestinal History: non alcoholic fatty liver disease Genitourinary History: Reports: BPH ADDRESSER History: Reports: None Musculoskeletal History: Reports: Osteoarthritis Neurological History: Reports: Other (See Below) Other Neuro History: dizziness Psychiatric History: Reports: None Endocrine/Metabolic History: Reports: Diabetes, Type II Hematologic History: Reports: None Immunologic History: Reports: None Oncologic (Cancer) History: Reports: None Dermatologic History: Reports: None - Infectious Disease History Infectious Disease History: Reports: None - Past Surgical History Head Surgeries/Procedures: Reports: None HEENT Surgical History: Reports: Other (See Below) Other HEENT Surgeries/Procedures: surgery to the roof of mouth Cardiovascular Surgical History: Reports: Coronary Artery Bypass Respiratory Surgical History: Reports: None GI Surgical History: Reports: Colonoscopy Female Surgical History: Reports: None Male Surgical History: Reports: None Endocrine Surgical History: Reports: None Neurological Surgical History: Reports: None Musculoskeletal Surgical History: Reports: Arthroscopic Knee, Other (See Below) Other Musculoskeletal Surgeries/Procedures:: current right knee replacement Oncologic Surgical History: Reports: None Dermatological Surgical History: Reports: None - SUBSTANCE USE Smoking Status *Q: Former Smoker Tobacco Use Within Last Twelve Months: Cigarettes Second Hand Smoke Exposure: No Days Per Week of Alcohol Use: 0 Recreational Drug Use History: No - HOME MEDS Home Medications: Home Meds Metoprolol Succinate [Toprol XL 50mg] 50 mg PO BEDTIME 02/23/16 [History] atorvaSTATin [Lipitor] 40 mg PO BEDTIME 02/23/16 [History] Cyanocobalamin/FA/Pyridoxine [Folbic] 1 tab PO DAILY 12/26/16 [History] Dapagliflozin Propanediol [Farxiga] 5 mg PO DAILY 12/26/16 [History] Exenatide Microspheres [Bydureon] 2 mg SQ Q14D 12/26/16 [History] Lisinopril 5 mg PO DAILY 12/26/16 [History] Meclizine HCl 25 mg PO QID PRN 12/26/16 [History] Multivitamin with Minerals [Multiple Vitamin] 1 tab PO DAILY 12/26/16 [History] [place]-3/DHA/Epa/Fish Oil [Fish Oil 1,000 mg Softgel] 1,000 mg PO DAILY 12/26/16 [History] Pantoprazole Sodium [Protonix] 40 mg PO BID 12/26/16 [History] glipiZIDE [Glipizide ER] 2.5 mg PO DAILY 12/26/16 [History] metFORMIN HCl [Metformin HCl] 1,000 mg PO BID 12/26/16 [History] Aspirin [Ecotrin] 81 mg PO BID #1 02/10/17 [Rx] - CURRENT (IN HOUSE) MEDS Current Meds: Current Medications Lactated Ringer's (Ringers, Lactated) 1,000 mls @ 125 mls/hr IV ASDIRECTED JERONIMO Lidocaine/Sodium Bicarbonate (Buffered Lidocaine 1% In Ns 8.4%) 0.25 ml IV ONETIME PRN PRN Reason: Prior to IV Start Sodium Chloride (Saline Flush) 10 ml FLUSH ASDIRECTED PRN PRN Reason: Keep Vein Open
[2017-02-10] MEDS ORDERED: Ondansetron 4 MG/2 ML SDV ONE (09:05)
[2017-02-10] MEDS ORDERED: fentaNYL 100 MCG/2 ML SDV ONE (09:05)
[2017-02-10] MEDS ORDERED: Propofol 200 MG/20 ML SDV ONE (09:05)
[2017-02-10] MEDS ORDERED: Midazolam 1 MG/ML 2 ML SDV ONE (09:06)
[2017-02-10] MEDS ORDERED: Ketamine 500 mg/10 ML MDV ONE (09:06)
[2017-02-10] MEDS ORDERED: Lidocaine 1% 4 ML ONE (09:06)
[2017-02-10 10:53] VITALS: BP 124/83
[2017-02-10] MEDS ORDERED: Acetaminophen/oxyCODONE 325-5 MG Tab PO ONE (11:05)
--- NOTE | 2017-02-10 11:45 | CR ---
Right knee: Three fluoroscopic spot views of the right knee were obtained utilizing C-arm device during knee manipulation. Knee prosthesis is seen. Fluoroscopy time given as 8.4 seconds. Impression: 1. Incidental findings. Diagnostic code #2
--- NOTE | 2017-02-10 14:49 | PCM.OPNOTE ---
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
--- NOTE | 2017-02-10 15:19 | OR ---
DATE OF OPERATION: 02/10/2017 SURGEON: Michael Meyers MD OPERATION PERFORMED: Right total knee arthroplasty manipulation under anesthesia PREOPERATIVE DIAGNOSIS: Right total knee arthrofibrosis. POSTOPERATIVE DIAGNOSIS: Right total knee arthrofibrosis. ANESTHESIA: MAC. ANESTHESIA PROVIDER: Laura Keyes. [employer] WE[employer] APPLICATION DEVELOPER: Mirna Cannon PA-C. ESTIMATED BLOOD LOSS: Not applicable. COMPLICATIONS: None. CONDITION: Stable. DESCRIPTION OF PROCEDURE: The patient was identified in the preop holding area. Proper site was marked and identified by the surgeon. The patient was taken back to the operating theater where after adequate anesthesia, measurements were taken of the patient's right knee. The patient had range of motion from 20-90 of the right knee before manipulation at this time, manipulation was undertaken of the right total knee arthroplasty. After manipulation, there was significant scar tissue that was released. The patient had a range of motion from 4 to 127 degrees after manipulation. C-arm fluoroscopy showed all the components to be well aligned with no signs of loosening. At this time, the patient was sent to PACU in stable condition and he tolerated the procedure well. MMODAL /[id number] [place]
== END 2017-02-10 11:05 | disposition home or self-care (01) ==
LOC: JD.SDS 08:31
PROVIDERS: ATTEND Orthopaedic Surgery
DX: M24.661 Ankylosis, right knee (principal); D64.9 Anemia, unspecified; M19.90 Unspecified osteoarthritis, unspecified site; I25.10 Atherosclerotic heart disease of native coronary artery without angina pectoris; E78.5 Hyperlipidemia, unspecified; I10 Essential (primary) hypertension; E66.9 Obesity, unspecified; G47.33 Obstructive sleep apnea (adult) (pediatric); E11.9 Type 2 diabetes mellitus without complications; Z88.6 Allergy status to analgesic agent; Z79.899 Other long term (current) drug therapy; Z79.84 Long term (current) use of oral hypoglycemic drugs; Z95.1 Presence of aortocoronary bypass graft; Z90.89 Acquired absence of other organs; Z98.890 Other specified postprocedural states
CPT/HCPCS: 27570; 76000; 82962; A9270; J2250; J2405; J3010; J7120; 01380; J2704